=== PATIENT | female | born 1975 | race Caucasian/White ===

== ENCOUNTER → 2021-03-02 08:40 | Outpatient (CLI) | payer BC, SELFPAY ==
[2021-03-02 11:26] LABS: ALB/GLOB Ratio 0.7 RATIO (0.9-2.4); AST(SGOT) 35 U/L (15-37); Alanine Aminotransfer ALT/SGPT 27 U/L (13-56); Albumin, Serum 3.5 g/dL (3.2-5.0); Alkaline Phosphatase 81 U/L (45-117); Anion Gap 6 (5-15); BUN 9 mg/dL (7-18); BUN/Creat Ratio 13.3 RATIO (10-20); Calcium,Total 8.9 mg/dL (8.5-10.1); Chloride 104 mmol/L (98-107); Creatinine, Serum 0.68 mg/dL (0.55-1.02); EST Glomerular Filtration Rate 100 mL/min (>60); Est Glom Filt Rate - Afr Amer 121 mL/min (>60); Globulin 4.7 g/dL (2.2-4.2); Glucose 81 mg/dL (74-106); Potassium 3.5 mmol/L (3.5-5.1); Protein, Total 8.2 g/dL (6.4-8.2); Sodium Level 140 mmol/L (136-145); Thyroid Stim Hormone (TSH) 0.22 uIU/mL (0.358-3.74)
== END ==
PROVIDERS: PCP Family Medicine; Referring Provider Family Medicine; Visit Provider Family Medicine
DX: E03.9 Hypothyroidism, unspecified (principal)
CPT/HCPCS: 36415; 80053; 84443

== ENCOUNTER → 2021-03-04 10:15 | Outpatient (CLI) | payer BC, SELFPAY ==
[2021-03-04 12:00] LABS: Absolute Lymphocyte Count 2.16 X10^3/uL (0.83-4.51); Absolute Neutrophil Count 2.8 X10^3/uL (2.0-7.7); Basophil# 0.02 X10^3/uL; Basophil% 0.4 % (0-1); Eosinophil# 0.06 X10^3/uL; Eosinophils% 1.1 % (0-5); Hematocrit 43.6 % (37-47); Hemoglobin 13.9 g/dL (12.0-15.0); Lymphocyte # 2.16 X10^3/ul (0.83-4.51); Lymphocyte % 38.7 % (19-41); Mean Corp Hgb Conc 31.9 g/dL (32-36); Mean Corpuscular Hgb 29.3 pg (27.0-32.0); Mean Platelet Vol. 11.5 fl (6.2-12.0); Monocyte# 0.53 X10^3/uL; Monocyte% 9.5 % (0-10); NRBC Flagged by Analyzer 0 % (0-5); Neutrophil % 50.1 % (47-70); Platelet Count 304 K/mm3 (150-450); RBC Distribution Width CV 12.7 % (11.6-14.6); RBC Distribution Width SD 43.2 fl (35.1-43.9); Red Blood Count 4.74 M/mm3 (4.2-5.4); White Blood Count 5.6 K/mm3 (4.4-11.0)
[2021-03-04 12:13] LABS: Vitamin B12 734 pg/mL (211-911); Vitamin D,25 Hydroxy 14.7 ng/mL
[2021-03-04 12:15] LABS: Ferritin 30 ng/mL (8-252); Magnesium 2.1 mg/dL (1.6-2.6)
== END ==
PROVIDERS: PCP Family Medicine; Referring Provider Family Medicine; Visit Provider Family Medicine
DX: R53.83 Other fatigue (principal); R25.2 Cramp and spasm
CPT/HCPCS: 36415; 82306; 82607; 82728; 83735; 85025

== ENCOUNTER → 2021-06-29 10:18 | Outpatient (CLI) | payer BC, SELFPAY ==
[2021-06-29 12:30] LABS: Absolute Lymphocyte Count 2.18 X10^3/uL (0.83-4.51); Absolute Neutrophil Count 2.2 X10^3/uL (2.0-7.7); Basophil# 0.03 X10^3/uL; Basophil% 0.6 % (0-1); Eosinophil# 0.08 X10^3/uL; Eosinophils% 1.6 % (0-5); Hematocrit 40.5 % (37-47); Hemoglobin 13.5 g/dL (12.0-15.0); Lymphocyte # 2.18 X10^3/ul (0.83-4.51); Lymphocyte % 44.4 % (19-41); Mean Corp Hgb Conc 33.3 g/dL (32-36); Mean Corpuscular Hgb 30.8 pg (27.0-32.0); Mean Corpuscular Volume 92.3 fL (81-99); Mean Platelet Vol. 11.1 fl (6.2-12.0); Monocyte# 0.39 X10^3/uL; Monocyte% 7.9 % (0-10); NRBC Flagged by Analyzer 0 % (0-5); Neutrophil # 2.22 X10^3/uL (2.7-7.7); Neutrophil % 45.3 % (47-70); Platelet Count 273 K/mm3 (150-450); RBC Distribution Width SD 43.9 fl (35.1-43.9); Red Blood Count 4.39 M/mm3 (4.2-5.4); White Blood Count 4.9 K/mm3 (4.4-11.0)
[2021-06-29 12:54] LABS: Vitamin D,25 Hydroxy 23.3 ng/mL
[2021-06-29 13:44] LABS: ALB/GLOB Ratio 0.7 RATIO (0.9-2.4); AST(SGOT) 19 U/L (15-37); Alanine Aminotransfer ALT/SGPT 19 U/L (13-56); Albumin, Serum 3.2 g/dL (3.2-5.0); Alkaline Phosphatase 69 U/L (45-117); Anion Gap 7 (5-15); BUN 9 mg/dL (7-18); BUN/Creat Ratio 11.4 RATIO (10-20); Calcium,Total 8.9 mg/dL (8.5-10.1); Chloride 106 mmol/L (98-107); Creatinine, Serum 0.79 mg/dL (0.55-1.02); EST Glomerular Filtration Rate 84 mL/min (>60); Est Glom Filt Rate - Afr Amer 102 mL/min (>60); Globulin 4.4 g/dL (2.2-4.2); Glucose 90 mg/dL (74-106); Potassium 3.9 mmol/L (3.5-5.1); Protein, Total 7.6 g/dL (6.4-8.2); Sodium Level 141 mmol/L (136-145); T4 Free Direct 0.79 ng/dL (0.76-1.46); Thyroid Stim Hormone (TSH) 3.94 uIU/mL (0.358-3.74)
== END ==
PROVIDERS: PCP Family Medicine; Referring Provider Family Medicine; Visit Provider Family Medicine
DX: E03.9 Hypothyroidism, unspecified (principal); E55.9 Vitamin D deficiency, unspecified
CPT/HCPCS: 36415; 80053; 82306; 84439; 84443; 85025

== ENCOUNTER → 2021-06-30 11:18 | Outpatient (CLI) | payer BC, SELFPAY ==
--- NOTE | 2021-06-30 11:21 | US_ITS ---
STUDY: THYROID ULTRASOUND REASON FOR EXAM: Female, 46 years old. THY NODULE palpated by physician TECHNIQUE: Ultrasound evaluation of the thyroid was performed with real-time and static calhoun-scale imaging. COMPARISON: None. FINDINGS: RIGHT LOBE: The right lobe of the thyroid gland measures 2.2 x 0.8 x 0.8 cm. There is a homogeneous echotexture. 1 x 0.6 x 0.6 cm lower pole solid nodule with regular margins and punctate echogenic foci. 4 x 3 x 4 mm upper pole solid nodule with regular margins. LEFT LOBE: The left lobe of the thyroid gland measures 2.2 x 0.8 x 0.6 cm. There is a homogeneous echotexture. There are no demonstrated solid, cystic or complex lesions. 4 mm intrathyroid lymph node ISTHMUS: The isthmus measures 3 mm. US/Thyroid IMPRESSION: TI-RADS 4 nodule in the right thyroid lobe measures up to 1 cm. Follow up with ultrasound in one year to assess malignant potential. Electronically Signed: Eh Denise MD at 2:44 EDT Tel , Service support ,
== END ==
PROVIDERS: PCP Family Medicine; Referring Provider Family Medicine; Visit Provider Family Medicine
DX: E04.1 Nontoxic single thyroid nodule (principal)
CPT/HCPCS: 76536

== ENCOUNTER 2021-10-12 16:34 | Outpatient (CLI) | payer BC, SELFPAY ==
[2021-10-12 17:57] LABS: Absolute Lymphocyte Count 2.54 X10^3/uL (0.83-4.51); Basophil# 0.02 X10^3/uL; Basophil% 0.3 % (0-1); Eosinophil# 0.05 X10^3/uL; Eosinophils% 0.7 % (0-5); Hematocrit 39.6 % (37-47); Hemoglobin 13.4 g/dL (12.0-15.0); Lymphocyte # 2.54 X10^3/ul (0.83-4.51); Lymphocyte % 35.6 % (19-41); Mean Corp Hgb Conc 33.8 g/dL (32-36); Mean Corpuscular Hgb 30.9 pg (27.0-32.0); Mean Corpuscular Volume 91.2 fL (81-99); Mean Platelet Vol. 10.9 fl (6.2-12.0); Monocyte# 0.48 X10^3/uL; Monocyte% 6.7 % (0-10); NRBC Flagged by Analyzer 0 % (0-5); Neutrophil # 4.02 X10^3/uL (2.7-7.7); Neutrophil % 56.4 % (47-70); Platelet Count 267 K/mm3 (150-450); RBC Distribution Width CV 12.1 % (11.6-14.6); RBC Distribution Width SD 40.6 fl (35.1-43.9); Red Blood Count 4.34 M/mm3 (4.2-5.4); White Blood Count 7.1 K/mm3 (4.4-11.0)
[2021-10-12 18:17] LABS: Vitamin D,25 Hydroxy 56.2 ng/mL
[2021-10-12 18:32] LABS: ALB/GLOB Ratio 0.8 RATIO (0.9-2.4); AST(SGOT) 20 U/L (15-37); Alanine Aminotransfer ALT/SGPT 19 U/L (13-56); Albumin, Serum 3.4 g/dL (3.2-5.0); Alkaline Phosphatase 70 U/L (45-117); Anion Gap 6 (5-15); BUN 11 mg/dL (7-18); BUN/Creat Ratio 17.8 RATIO (10-20); Calcium,Total 8.6 mg/dL (8.5-10.1); Chloride 106 mmol/L (98-107); Creatinine, Serum 0.62 mg/dL (0.55-1.02); EST Glomerular Filtration Rate 111 mL/min (>60); Est Glom Filt Rate - Afr Amer 135 mL/min (>60); Glucose 87 mg/dL (74-106); Potassium 3.8 mmol/L (3.5-5.1); Protein, Total 7.4 g/dL (6.4-8.2); Sodium Level 138 mmol/L (136-145); T4 Free Direct 0.96 ng/dL (0.76-1.46); Thyroid Stim Hormone (TSH) 0.26 uIU/mL (0.358-3.74)
== END 2021-10-12 23:59 | disposition short-term general hospital (02) ==
LOC: MTLAB 16:36
PROVIDERS: PCP Family Medicine; Referring Provider Family Medicine; Visit Provider Family Medicine
DX: E03.9 Hypothyroidism, unspecified (principal); E55.9 Vitamin D deficiency, unspecified
CPT/HCPCS: 36415; 80053; 82306; 84439; 84443; 85025

== ENCOUNTER 2021-11-01 11:41 | Outpatient (CLI) | payer BC, SELFPAY ==
--- NOTE | 2021-11-01 11:47 | BI_ITS ---
MAMMOGRAPHY - BILATERAL SCREENING REASON FOR EXAM: Female, 46 years old. Routine annual screening examination. PERTINENT HISTORY: Non-contributory. TECHNIQUE: Digital bilateral breast caryn (3D mammographic acquisition) in the CC and MLO projections. 2-D mediolateral oblique (MLO) and craniocaudad (CC) views of both breasts were obtained. CAD: Full Field Digital Mammography with Computer Added Detection was performed. COMPARISON: Comparison is made with prior outside examination dated 05/23/2008. FINDINGS: Breast Composition: The breasts are heterogeneously dense, which may obscure small masses. There are no dominant masses or suspicious calcifications. No other significant abnormalities are identified. There has been no significant change since the prior study. BI/SCRN MAMM (CAD)W/CARYN BILAT IMPRESSION: Stable bilateral screening mammogram. Yearly follow-up mammogram recommended. (A) ASSESSMENT CATEGORY: BIRADS Category 1: Negative. A letter regarding these results will be sent to the patient by the facility within 30 days. Approximately 10% of breast cancers are not detected by mammography. A normal mammogram should not delay biopsy of a clinically suspicious abnormality. [id number] Electronically Signed: Cj Bey MD at 12:56 EST ,
--- NOTE | 2021-11-01 11:47 | US_ITS ---
STUDY: ULTRASOUND OF THE FEMALE PELVIS - COMPLETE REASON FOR EXAM: Female, 46 years old. PAIN left sided LMP: 10/25/2021. TECHNIQUE: Transabdominal and Transvaginal TECHNICAL QUALITY: Adequate. COMPARISON: None. FINDINGS: The uterus is anteverted and is in a midline position. The uterus measures 7 cm x 3.6 cm x 3.3 cm. Normal uterine cervix. The endometrium measures 2.7 mm in thickness, and is hyperechoic. There is no demonstrated endometrial mass. Heterogeneous echotexture of the myometrium although no focal fibroid is seen. I.U.D. - The patient does not have an I.U.D. The right ovary is visualized. The right ovary measures 2.1 cm x 2.2 centimeters x 1.2 cm. There is no right ovarian cyst or ovarian mass. There is no visualized right adnexal mass or complex lesion. There is normal arterial and normal venous vascularity. The left ovary is visualized. The left ovary measures 2.4 cm x 2.6 cm x 1.2 cm. A dominant follicle is seen in the left ovary measuring 1.2 cm x 1 cm x 0.9 cm. There is no visualized left adnexal mass or complex lesion. There is normal arterial and normal venous vascularity. There is no fluid in the cul-de-sac. The pre void volume of the bladder was 277 ml. US/Transvaginal Non- IMPRESSION: Heterogeneous appearance of the myometrium although no focal fibroid is seen. A dominant follicle is seen in the left ovary. Electronically Signed: Cj Bey MD at 15:34 EST ,
--- NOTE | 2021-11-01 11:48 | US_ITS ---
STUDY: ULTRASOUND OF THE FEMALE PELVIS - COMPLETE REASON FOR EXAM: Female, 46 years old. PAIN left sided LMP: 10/25/2021. TECHNIQUE: Transabdominal and Transvaginal TECHNICAL QUALITY: Adequate. COMPARISON: None. FINDINGS: The uterus is anteverted and is in a midline position. The uterus measures 7 cm x 3.6 cm x 3.3 cm. Normal uterine cervix. The endometrium measures 2.7 mm in thickness, and is hyperechoic. There is no demonstrated endometrial mass. Heterogeneous echotexture of the myometrium although no focal fibroid is seen. I.U.D. - The patient does not have an I.U.D. The right ovary is visualized. The right ovary measures 2.1 cm x 2.2 centimeters x 1.2 cm. There is no right ovarian cyst or ovarian mass. There is no visualized right adnexal mass or complex lesion. There is normal arterial and normal venous vascularity. The left ovary is visualized. The left ovary measures 2.4 cm x 2.6 cm x 1.2 cm. A dominant follicle is seen in the left ovary measuring 1.2 cm x 1 cm x 0.9 cm. There is no visualized left adnexal mass or complex lesion. There is normal arterial and normal venous vascularity. There is no fluid in the cul-de-sac. The pre void volume of the bladder was 277 ml. US/Pelvic (Non ) IMPRESSION: Heterogeneous appearance of the myometrium although no focal fibroid is seen. A dominant follicle is seen in the left ovary. Electronically Signed: Cj Bey MD at 15:34 EST ,
== END 2021-11-01 23:59 | disposition home or self-care (01) ==
LOC: OPBI 11:44
PROVIDERS: PCP Family Medicine; Referring Provider Obstetrics & Gynecology; Visit Provider Obstetrics & Gynecology
DX: Z12.31 Encounter for screening mammogram for malignant neoplasm of breast (principal); N83.02 Follicular cyst of left ovary; R14.0 Abdominal distension (gaseous); R10.32 Left lower quadrant pain
CPT/HCPCS: 76830; 76856; 77063; 77067

== ENCOUNTER → 2022-03-17 | Outpatient (CLI) | payer BC, SELFPAY ==
[2022-03-17 09:59] LABS: Absolute Lymphocyte Count 1.92 X10^3/uL (0.83-4.51); Absolute Neutrophil Count 2.9 X10^3/uL (2.0-7.7); Basophil# 0.02 X10^3/uL; Basophil% 0.4 % (0-1); Eosinophil# 0.06 X10^3/uL; Eosinophils% 1.1 % (0-5); Hematocrit 40.8 % (37-47); Hemoglobin 13.3 g/dL (12.0-15.0); Lymphocyte # 1.92 X10^3/ul (0.83-4.51); Lymphocyte % 35.8 % (19-41); Mean Corp Hgb Conc 32.6 g/dL (32-36); Mean Corpuscular Hgb 30.1 pg (27.0-32.0); Mean Corpuscular Volume 92.3 fL (81-99); Mean Platelet Vol. 10.7 fl (6.2-12.0); Monocyte# 0.42 X10^3/uL; Monocyte% 7.8 % (0-10); NRBC Flagged by Analyzer 0 % (0-5); Neutrophil # 2.93 X10^3/uL (2.7-7.7); Neutrophil % 54.5 % (47-70); Platelet Count 278 K/mm3 (150-450); RBC Distribution Width CV 12.4 % (11.6-14.6); RBC Distribution Width SD 41.8 fl (35.1-43.9); Red Blood Count 4.42 M/mm3 (4.2-5.4); White Blood Count 5.4 K/mm3 (4.4-11.0)
[2022-03-17 10:52] LABS: ALB/GLOB Ratio 0.8 RATIO (0.9-2.4); AST(SGOT) 27 U/L (15-37); Alanine Aminotransfer ALT/SGPT 21 U/L (13-56); Albumin, Serum 3.4 g/dL (3.2-5.0); Alkaline Phosphatase 77 U/L (45-117); Anion Gap 4 (5-15); BUN 11 mg/dL (7-18); Calcium,Total 9.3 mg/dL (8.5-10.1); Chloride 108 mmol/L (98-107); Creatinine, Serum 0.73 mg/dL (0.55-1.02); EST Glomerular Filtration Rate 92 mL/min (>60); Est Glom Filt Rate - Afr Amer 111 mL/min (>60); Globulin 4.1 g/dL (2.2-4.2); Glucose 84 mg/dL (74-106); Potassium 3.9 mmol/L (3.5-5.1); Protein, Total 7.5 g/dL (6.4-8.2); Sodium Level 140 mmol/L (136-145); T4 Free Direct 0.92 ng/dL (0.76-1.46); Thyroid Stim Hormone (TSH) 0.06 uIU/mL (0.358-3.74)
== END | disposition home or self-care (01) ==
LOC: MTLAB 09:12
PROVIDERS: PCP Family Medicine; Referring Provider Family Medicine; Visit Provider Family Medicine
DX: E03.9 Hypothyroidism, unspecified (principal); E55.9 Vitamin D deficiency, unspecified
CPT/HCPCS: 36415; 80053; 82306; 84439; 84443; 85025

== ENCOUNTER → 2022-07-11 | Outpatient (CLI) | payer BC, SELFPAY ==
[2022-07-11 10:12] LABS: Absolute Lymphocyte Count 1.73 X10^3/uL (0.83-4.51); Absolute Neutrophil Count 2.8 X10^3/uL (2.0-7.7); Basophil# 0.03 X10^3/uL; Basophil% 0.6 % (0-1); Eosinophil# 0.07 X10^3/uL; Eosinophils% 1.4 % (0-5); Hematocrit 41.4 % (37-47); Lymphocyte # 1.73 X10^3/ul (0.83-4.51); Mean Corp Hgb Conc 33.8 g/dL (32-36); Mean Corpuscular Hgb 31.2 pg (27.0-32.0); Mean Corpuscular Volume 92.2 fL (81-99); Mean Platelet Vol. 10.8 fl (6.2-12.0); Monocyte# 0.35 X10^3/uL; Monocyte% 7.1 % (0-10); NRBC Flagged by Analyzer 0 % (0-5); Neutrophil # 2.75 X10^3/uL (2.7-7.7); Neutrophil % 55.7 % (47-70); Platelet Count 283 K/mm3 (150-450); RBC Distribution Width CV 12.6 % (11.6-14.6); RBC Distribution Width SD 42.8 fl (35.1-43.9); Red Blood Count 4.49 M/mm3 (4.2-5.4); White Blood Count 4.9 K/mm3 (4.4-11.0)
[2022-07-11 10:39] LABS: Vitamin D,25 Hydroxy 64.6 ng/mL
[2022-07-11 10:45] LABS: ALB/GLOB Ratio 0.8 RATIO (0.9-2.4); AST(SGOT) 21 U/L (15-37); Alanine Aminotransfer ALT/SGPT 20 U/L (13-56); Albumin, Serum 3.4 g/dL (3.2-5.0); Alkaline Phosphatase 85 U/L (45-117); Anion Gap 6 (5-15); BUN 8 mg/dL (7-18); BUN/Creat Ratio 13.5 RATIO (10-20); Chloride 106 mmol/L (98-107); Creatinine, Serum 0.59 mg/dL (0.55-1.02); EST Glomerular Filtration Rate 116 mL/min (>60); Est Glom Filt Rate - Afr Amer 141 mL/min (>60); Globulin 4.1 g/dL (2.2-4.2); Glucose 93 mg/dL (74-106); Potassium 3.6 mmol/L (3.5-5.1); Protein, Total 7.5 g/dL (6.4-8.2); Sodium Level 140 mmol/L (136-145); T4 Free Direct 0.98 ng/dL (0.76-1.46); Thyroid Stim Hormone (TSH) 0.87 uIU/mL (0.358-3.74)
== END | disposition home or self-care (01) ==
LOC: MTLAB 09:14
PROVIDERS: PCP Family Medicine; Referring Provider Family Medicine; Visit Provider Family Medicine
DX: D69.3 Immune thrombocytopenic purpura (principal); E55.9 Vitamin D deficiency, unspecified; E03.9 Hypothyroidism, unspecified
CPT/HCPCS: 36415; 80053; 82306; 84439; 84443; 85025

== ENCOUNTER → 2022-07-29 | Outpatient (CLI) | payer BC, SELFPAY ==
--- NOTE | 2022-07-29 17:29 | US_ITS ---
1.0 x 0.62 x 0.77 cm. This is similar to the prior study. STUDY: THYROID ULTRASOUND REASON FOR EXAM: Female, 47 years old. THYROID NODULES TECHNIQUE: Ultrasound evaluation of the thyroid was performed with real-time and static calhoun-scale imaging. Technologist described the thyroid is homogeneous however the thyroid is inhomogeneous on the right side. It is mildly inhomogeneous on the left. COMPARISON: 06/30/2021 Thyroid ultrasound. FINDINGS: RIGHT LOBE: The right lobe of the thyroid gland measures 1.9 x 0.9 x 0.8 cm. There is a somewhat coarse echotexture to the right thyroid. There is a calcification in the medial aspect of the thyroid measuring 6 mm. In the inferior aspect of the right thyroid there is a visualized hypoechoic mass measuring 1.0 x 0.8 x 0.6 cm. There are coarse calcifications associated with this nodule and minimal peripheral vascularity. LEFT LOBE: The left lobe of the thyroid gland measures 1.8 x 0.6 x 0.7 cm. There is a heterogeneous echotexture. There is a small hypoechoic structure in the periphery of the left thyroid with a hypoechoic periphery and hyperechoic center which may represent a small lymph node measuring 3.7 x 3.0 x 2.9 mm. ISTHMUS: The isthmus measures 1.8 mm. . The regional lymph nodes are normal. US/Thyroid IMPRESSION: Small appearance of the small bilateral thyroid lobes. There is a dominant inhomogeneous mass measuring 1 x 0.8 x 0.6 with coarse calcifications within the right thyroid. Although this is unchanged since prior study in size, a dominant presentation of hypoechoic mass with coarse calcifications peripheral vascularity in a patient this age raises concern for neoplasm. Recommend further evaluation with biopsy. Electronically Signed: Anahy Cramer MD at 16:44 EST ,
== END | disposition home or self-care (01) ==
LOC: US 17:26
PROVIDERS: PCP Family Medicine; Referring Provider Family Medicine; Visit Provider Family Medicine
DX: E04.1 Nontoxic single thyroid nodule (principal)
CPT/HCPCS: 76536

== ENCOUNTER → 2022-11-17 | Outpatient (CLI) | payer BC, SELFPAY ==
--- NOTE | 2022-11-17 17:10 | MRI_ITS ---
STUDY: MRI BRAIN WITH AND WITHOUT CONTRAST REASON FOR EXAM: Female, 47 years old. DYSDIADOCHOKINESIA TECHNIQUE: Standardized multiplanar fat and water weighted pulse sequences were obtained. IV 17 clairiscan was administered for the contrast portion of the examination. COMPARISON: None. FINDINGS: Normal size of the ventricles and extra-axial spaces for the patient''s age. Normal white matter tracts of the supratentorial brain. There is no evidence for recent intracranial ischemia or other cause of cytotoxic edema on diffusion weighted imaging (DWI). Normal T2* images of the brain without demonstrated susceptibility artifact. There is no demonstrated hemosiderin stain. Normal bilateral basal ganglia. Normal thalami. There is no extra-axial fluid accumulation. Normal flow voids within the major intracranial circulation suggesting patency by spin echo criteria. Normal venous enhancement. There is no enhancing intra-axial or extra-axial abnormality. Normal pineal gland and midline anatomy. Normal midbrain, jasmeet and medulla. Normal cerebellum. Normal basal cisterns. Cerebellar pontine angles and inner ear structures are within normal limits. Normally aerated paranasal sinuses and mastoid air cells. MRI/Brain W/WO Contrast IMPRESSION: Normal unenhanced and enhanced MRI of the brain. Electronically Signed: Jason Barrios DO at 20:05 EST ,
== END | disposition home or self-care (01) ==
LOC: MRI 16:49
PROVIDERS: PCP Family Medicine; Referring Provider Family Medicine; Visit Provider Family Medicine
DX: R27.8 Other lack of coordination (principal)
CPT/HCPCS: 70553; A9575

== ENCOUNTER → 2022-12-01 | Outpatient (CLI) | payer BC, SELFPAY ==
[2022-12-01 15:11] LABS: Absolute Lymphocyte Count 2.25 X10^3/uL (0.83-4.51); Absolute Neutrophil Count 2.5 X10^3/uL (2.0-7.7); Basophil# 0.02 X10^3/uL; Basophil% 0.4 % (0-1); Eosinophil# 0.04 X10^3/uL; Eosinophils% 0.8 % (0-5); Hematocrit 40.6 % (37-47); Hemoglobin 13.7 g/dL (12.0-15.0); Lymphocyte # 2.25 X10^3/ul (0.83-4.51); Lymphocyte % 42.4 % (19-41); Mean Corp Hgb Conc 33.7 g/dL (32-36); Mean Corpuscular Hgb 30.9 pg (27.0-32.0); Mean Corpuscular Volume 91.6 fL (81-99); Mean Platelet Vol. 10.8 fl (6.2-12.0); Monocyte# 0.53 X10^3/uL; NRBC Flagged by Analyzer 0 % (0-5); Neutrophil # 2.47 X10^3/uL (2.7-7.7); Neutrophil % 46.4 % (47-70); Platelet Count 316 K/mm3 (150-450); RBC Distribution Width CV 12.3 % (11.6-14.6); RBC Distribution Width SD 41.7 fl (35.1-43.9); Red Blood Count 4.43 M/mm3 (4.2-5.4); White Blood Count 5.3 K/mm3 (4.4-11.0)
[2022-12-01 15:59] LABS: Vitamin D,25 Hydroxy 70.8 ng/mL
[2022-12-01 16:17] LABS: ALB/GLOB Ratio 0.9 RATIO (0.9-2.4); AST(SGOT) 16 U/L (15-37); Alanine Aminotransfer ALT/SGPT 19 U/L (13-56); Albumin, Serum 3.5 g/dL (3.2-5.0); Alkaline Phosphatase 69 U/L (45-117); Anion Gap 9 (5-15); BUN 11 mg/dL (7-18); BUN/Creat Ratio 16.4 RATIO (10-20); Calcium,Total 9.1 mg/dL (8.5-10.1); Chloride 105 mmol/L (98-107); Creatinine, Serum 0.67 mg/dL (0.55-1.02); EST Glomerular Filtration Rate 101 mL/min (>60); Est Glom Filt Rate - Afr Amer 122 mL/min (>60); Globulin 4.1 g/dL (2.2-4.2); Glucose 103 mg/dL (74-106); Potassium 3.7 mmol/L (3.5-5.1); Protein, Total 7.6 g/dL (6.4-8.2); Sodium Level 139 mmol/L (136-145); T4 Free Direct 1.07 ng/dL (0.76-1.46); Thyroid Stim Hormone (TSH) 0.08 uIU/mL (0.358-3.74)
== END | disposition home or self-care (01) ==
LOC: MFPLAB 11:20
PROVIDERS: PCP Family Medicine; Referring Provider Family Medicine; Visit Provider Family Medicine
DX: E03.9 Hypothyroidism, unspecified (principal); E55.9 Vitamin D deficiency, unspecified
CPT/HCPCS: 36415; 80053; 82306; 84439; 84443; 85025

== ENCOUNTER → 2023-02-10 | Outpatient (CLI) | payer BC, SELFPAY ==
--- NOTE | 2023-02-10 17:12 | US_ITS ---
EXAM: US SOFT TISSUES HEAD AND NECK, THYROID CLINICAL INDICATION: Thyroid nodules TECHNIQUE: Grayscale and color doppler imaging was performed of the thyroid gland. COMPARISON: No relevant prior studies available. FINDINGS: LEFT THYROID LOBE: The left lobe of the thyroid measures 1.6 x 0.7 x 0.6 cm. Heterogeneous solid nodule measuring 3 mm lower pole left lobe of the thyroid that is heterogeneous hyperechoic, smoothly marginated, with echogenic foci. RIGHT THYROID LOBE: The right lobe of the thyroid measures 2.1 x 0.9 x 0.8 cm. Heterogeneous solid nodule measuring 7 x 6 x 6 mm lower pole of the right lobe of the thyroid that is hypoechoic, taller than wide, smoothly marginated without echogenic foci. ISTHMUS: The isthmus measures 2 mm. No thyroid nodules are present. US/Thyroid IMPRESSION: 1. Atrophic thyroid. 2. Heterogeneous solid nodule measuring 7 x 6 x 6 mm lower pole of the right lobe of the thyroid that is hypoechoic, taller than wide, smoothly marginated without echogenic foci. TI-RADS points: 7. TI-RADS category: TR5. This nodule is highly suspicious but no FNA or follow-up is necessary given the small size of this nodule. 3. Heterogeneous solid nodule measuring 3 mm lower pole left lobe of the thyroid that is heterogeneous hyperechoic, smoothly marginated, with echogenic foci. TI-RADS points: 6. TI-RADS category: TR4. This nodule is moderately suspicious but no FNA or follow-up is necessary given the small size of this nodule. Electronically Signed: Jason Talbert MD at 4:48 EDT ,
== END | disposition home or self-care (01) ==
LOC: US 17:10
PROVIDERS: PCP Family Medicine; Referring Provider Surgery; Visit Provider Surgery
DX: E04.1 Nontoxic single thyroid nodule (principal); E03.9 Hypothyroidism, unspecified
CPT/HCPCS: 76536

== ENCOUNTER → 2023-05-10 | Outpatient (CLI) | payer BC, SELFPAY ==
--- NOTE | 2023-05-10 12:27 | BI_ITS ---
MAMMOGRAPHY - BILATERAL SCREENING REASON FOR EXAM: Female, 47 years old. Routine annual screening examination. PERTINENT HISTORY: Non-contributory. TECHNIQUE: Digital bilateral breast caryn (3D mammographic acquisition) in the CC and MLO projections. 2-D mediolateral oblique (MLO) and craniocaudad (CC) views of both breasts were obtained. CAD: Full Field Digital Mammography with Computer Added Detection was performed. COMPARISON: Comparison is made with prior examination of November 01, 2021. FINDINGS: Breast Composition: The breasts are heterogeneously dense, which may obscure small masses. There are no dominant masses or suspicious calcifications. Stable small benign-appearing bilateral axillary lymph nodes. No other significant abnormalities are identified. There has been no significant change since the prior study. BI/SCRN MAMM (CAD)W/CARYN BILAT IMPRESSION: Stable bilateral screening mammogram. Yearly follow-up mammogram recommended. (A) ASSESSMENT CATEGORY: BIRADS Category 2: Benign. A letter regarding these results will be sent to the patient by the facility within 30 days. Approximately 10% of breast cancers are not detected by mammography. A normal mammogram should not delay biopsy of a clinically suspicious abnormality. [id number] Electronically Signed: Cj Bey MD at 14:32 EDT ,
== END | disposition home or self-care (01) ==
LOC: OPBI 12:25
PROVIDERS: PCP Family Medicine; Referring Provider Obstetrics & Gynecology; Visit Provider Obstetrics & Gynecology
DX: Z12.31 Encounter for screening mammogram for malignant neoplasm of breast (principal)
CPT/HCPCS: 77063; 77067

== ENCOUNTER → 2023-06-06 | Outpatient (CLI) | payer BC, SELFPAY ==
[2023-06-06 15:18] LABS: Absolute Lymphocyte Count 2.02 X10^3/uL (0.83-4.51); Absolute Neutrophil Count 2.1 X10^3/uL (2.0-7.7); Basophil# 0.04 X10^3/uL; Basophil% 0.9 % (0-1); Eosinophil# 0.04 X10^3/uL; Eosinophils% 0.9 % (0-5); Hematocrit 41.4 % (37-47); Hemoglobin 13.4 g/dL (12.0-15.0); Lymphocyte # 2.02 X10^3/ul (0.83-4.51); Lymphocyte % 43.2 % (19-41); Mean Corp Hgb Conc 32.4 g/dL (32-36); Mean Corpuscular Hgb 30.4 pg (27.0-32.0); Mean Corpuscular Volume 93.9 fL (81-99); Mean Platelet Vol. 11.3 fl (6.2-12.0); Monocyte# 0.42 X10^3/uL; NRBC Flagged by Analyzer 0 % (0-5); Neutrophil % 44.7 % (47-70); Platelet Count 281 K/mm3 (150-450); RBC Distribution Width CV 12.2 % (11.6-14.6); RBC Distribution Width SD 42.6 fl (35.1-43.9); Red Blood Count 4.41 M/mm3 (4.2-5.4); White Blood Count 4.7 K/mm3 (4.4-11.0)
[2023-06-06 16:02] LABS: Vitamin D,25 Hydroxy 33.6 ng/mL
[2023-06-06 16:56] LABS: ALB/GLOB Ratio 0.8 RATIO (0.9-2.4); AST(SGOT) 19 U/L (15-37); Alanine Aminotransfer ALT/SGPT 21 U/L (13-56); Albumin, Serum 3.3 g/dL (3.2-5.0); Alkaline Phosphatase 77 U/L (45-117); Anion Gap 6 (5-15); BUN 13 mg/dL (7-18); Calcium,Total 8.8 mg/dL (8.5-10.1); Chloride 109 mmol/L (98-107); Creatinine, Serum 0.72 mg/dL (0.55-1.02); EST Glomerular Filtration Rate 93 mL/min (>60); Est Glom Filt Rate - Afr Amer 112 mL/min (>60); Globulin 4.1 g/dL (2.2-4.2); Glucose 118 mg/dL (74-106); Potassium 3.8 mmol/L (3.5-5.1); Protein, Total 7.4 g/dL (6.4-8.2); Sodium Level 140 mmol/L (136-145); T4 Free Direct 0.91 ng/dL (0.76-1.46); Thyroid Stim Hormone (TSH) 0.31 uIU/mL (0.358-3.74)
== END | disposition home or self-care (01) ==
LOC: MFPLAB 11:27
PROVIDERS: PCP Family Medicine; Visit Provider Family Medicine
DX: E03.9 Hypothyroidism, unspecified (principal); E55.9 Vitamin D deficiency, unspecified; R73.09 Other abnormal glucose
CPT/HCPCS: 36415; 80053; 82306; 83036; 84439; 84443; 85025

== ENCOUNTER → 2023-06-16 | Outpatient (CLI) | payer BC, SELFPAY | END | disposition home or self-care (01) | LOC: MTLAB 08:35 | PROVIDERS: PCP Family Medicine; Referring Provider Family Medicine; Visit Provider Family Medicine | DX: R73.09 Other abnormal glucose (principal) | CPT/HCPCS: 36415; 83036 ==

== ENCOUNTER → 2023-08-15 | Outpatient (CLI) | payer BC, SELFPAY ==
--- NOTE | 2023-08-15 11:43 | US_ITS ---
STUDY: THYROID ULTRASOUND REASON FOR EXAM: Female, 48 years old. Thyroid nodules TECHNIQUE: Ultrasound evaluation of the thyroid was performed with real-time and static calhoun-scale imaging. COMPARISON: Comparison is made with prior study dated February 10, 2023. FINDINGS: RIGHT LOBE: The right lobe of the thyroid gland measures 2.6 cm x 0.9 cm x 1.1 cm. There is a heterogeneous echotexture. 1.1 cm x 0.7 cm x 0.7 cm solid nodule in the lower pole. This is unchanged. LEFT LOBE: The left lobe of the thyroid gland measures 2.1 cm x 0.9 cm x 0.8 cm. There is a heterogeneous echotexture. Stable 4 mm x 3 mm x 2 mm hypoechoic solid nodule in the lower pole. ISTHMUS: The isthmus measures 2 mm. The regional lymph nodes are normal. US/Thyroid IMPRESSION: Stable examination. Electronically Signed: Cj Bey MD at 13:56 EST ,
== END | disposition home or self-care (01) ==
PROVIDERS: PCP Family Medicine; Referring Provider Surgery; Visit Provider Surgery
DX: E04.1 Nontoxic single thyroid nodule (principal)
CPT/HCPCS: 76536

== ENCOUNTER → 2023-11-30 | Outpatient (CLI) | payer BC, SELFPAY ==
[2023-11-30 09:30] LABS: Mucous, Urine 0 SEEN /hpf (<or=2+); Red Blood Cells-Urine 0 SEEN /hpf (0-5); White Blood Cells 0 SEEN /hpf (0-5)
[2023-11-30 10:10] LABS: Absolute Lymphocyte Count 2.02 X10^3/uL (0.83-4.51); Absolute Neutrophil Count 2.6 X10^3/uL (2.0-7.7); Basophil# 0.03 X10^3/uL; Basophil% 0.6 % (0-1); Eosinophil# 0.05 X10^3/uL; Eosinophils% 0.9 % (0-5); Hemoglobin 13.8 g/dL (12.0-15.0); Lymphocyte # 2.02 X10^3/ul (0.83-4.51); Lymphocyte % 38.2 % (19-41); Mean Corp Hgb Conc 33.7 g/dL (32-36); Mean Corpuscular Hgb 31.2 pg (27.0-32.0); Mean Corpuscular Volume 92.8 fL (81-99); Mean Platelet Vol. 10.6 fl (6.2-12.0); Monocyte# 0.55 X10^3/uL; Monocyte% 10.4 % (0-10); NRBC Flagged by Analyzer 0 % (0-5); Neutrophil # 2.63 X10^3/uL (2.7-7.7); Neutrophil % 49.7 % (47-70); Platelet Count 255 K/mm3 (150-450); RBC Distribution Width CV 12.2 % (11.6-14.6); RBC Distribution Width SD 41.6 fl (35.1-43.9); Red Blood Count 4.42 M/mm3 (4.2-5.4); White Blood Count 5.3 K/mm3 (4.4-11.0)
[2023-11-30 10:13] LABS: Color, Urine Yellow (Yellow); Glucose, Dipstick Normal (Normal); Ketone-Dipstick Negative (Negative); Leukocyte Esterase-Dipstick Negative /ul (Negative); Nitrite-Dipstick Negative (Negative); Occult Blood-Urine Negative /ul (Negative); Protein-Dipstick Negative (Negative); Urine Bilirubin Dipstick Negative (Negative); Urine Clarity Clear (Clear); Urine Urobilinogen Normal (Normal)
[2023-11-30 10:32] LABS: Vitamin D,25 Hydroxy 34.4 ng/mL
[2023-11-30 10:47] LABS: Bacteria RARE /hpf (None Seen); Squamous Epithelial Cells - UA 0-5 SEEN /hpf (5-10)
[2023-11-30 13:35] LABS: ALB/GLOB Ratio 0.8 RATIO (0.9-2.4); AST(SGOT) 22 U/L (15-37); Alanine Aminotransfer ALT/SGPT 19 U/L (13-56); Albumin, Serum 3.4 g/dL (3.2-5.0); Alkaline Phosphatase 73 U/L (45-117); Anion Gap 6 (5-15); BUN 11 mg/dL (7-18); BUN/Creat Ratio 14.6 RATIO (10-20); Calcium,Total 8.9 mg/dL (8.5-10.1); Chloride 110 mmol/L (98-107); Cholesterol 158 mg/dL (200); Creatinine, Serum 0.76 mg/dL (0.55-1.02); EST Glomerular Filtration Rate 88 mL/min (>60); Est Glom Filt Rate - Afr Amer 106 mL/min (>60); Globulin 4.1 g/dL (2.2-4.2); Glucose 96 mg/dL (74-106); High Density Lipoprotein 31 mg/dL; Potassium 3.6 mmol/L (3.5-5.1); Protein, Total 7.5 g/dL (6.4-8.2); Sodium Level 140 mmol/L (136-145); T4 Free Direct 1.07 ng/dL (0.76-1.46); Thyroid Stim Hormone (TSH) 0.82 uIU/mL (0.358-3.74); Triglycerides 265 mg/dL; Very Low Density Lipoprotein 53 mg/dL (5-40)
== END | disposition home or self-care (01) ==
LOC: MTLAB 09:24
PROVIDERS: PCP Family Medicine; Referring Provider Family Medicine; Visit Provider Family Medicine
DX: E03.9 Hypothyroidism, unspecified (principal); E55.9 Vitamin D deficiency, unspecified
CPT/HCPCS: 36415; 80053; 80061; 81001; 82306; 84439; 84443; 85025

== ENCOUNTER → 2023-12-22 | Outpatient (CLI) | payer BC, SELFPAY ==
[2023-12-22 12:25] LABS: Erythrocyte Sedimentation Rate 14 mm/hr (0-30)
[2023-12-22 13:16] LABS: CPK Total, Creatine Kinase 55 U/L (26-192)
== END | disposition home or self-care (01) ==
LOC: MFPLAB 10:20
PROVIDERS: PCP Family Medicine; Visit Provider Family Medicine
DX: M62.81 Muscle weakness (generalized) (principal)
CPT/HCPCS: 36415; 82550; 83735; 85652

== ENCOUNTER → 2024-01-10 | Outpatient (CLI) | payer BC, SELFPAY ==
--- NOTE | 2024-01-10 13:14 | NEURO ---
NCS and/or EMG Patient Report Ordering Doctor: Braxton Maher DATE OF SERVICE: 01/10/24 Jovita presents for electrodiagnostic testing of the upper limbs. She reports pain in both arms and skin sensitivity, which she reports feels like burning in both arms. Electrodiagnostic findings: Median motor nerve demonstrates normal distal latency, amplitude and conduction velocity bilaterally. Ulnar motor response is within normal limits bilaterally, including conduction across the elbow. Normal median and ulnar F?waves. Sensory responses are within normal limits. Needle EMG testing was performed in the upper limbs. All muscles tested, including the cervical paraspinals, showed no evidence of denervation with normal motor unit action potentials. Electrodiagnostic impression: This is a normal electrodiagnostic study of the upper limbs. There is no electrodiagnostic evidence for peripheral neuropathy including carpal tunnel or cubital tunnel syndrome. There is no electrodiagnostic evidence for cervical radiculopathy. Multi Select Codes Neurology Neurology Interp Codes: 03998-51 Musc test done w/n test comp (interp) (2) and 91387-34 Nrv cndj test 13/> studies (interp)
== END | disposition home or self-care (01) ==
PROVIDERS: PCP Family Medicine; Referring Provider Family Medicine; Visit Provider Family Medicine
DX: G56.03 Carpal tunnel syndrome, bilateral upper limbs (principal)
CPT/HCPCS: 95886; 95913

== ENCOUNTER → 2024-03-22 | Outpatient (CLI) | payer BC, SELFPAY ==
[2024-03-22 12:27] LABS: Absolute Lymphocyte Count 2.09 X10^3/uL (0.83-4.51); Absolute Neutrophil Count 2.1 X10^3/uL (2.0-7.7); Basophil# 0.02 X10^3/uL; Basophil% 0.4 % (0-1); Eosinophil# 0.03 X10^3/uL; Eosinophils% 0.6 % (0-5); Hematocrit 42.2 % (37-47); Hemoglobin 14.3 g/dL (12.0-15.0); Lymphocyte # 2.09 X10^3/ul (0.83-4.51); Lymphocyte % 43.9 % (19-41); Mean Corp Hgb Conc 33.9 g/dL (32-36); Mean Corpuscular Hgb 31.4 pg (27.0-32.0); Mean Corpuscular Volume 92.7 fL (81-99); Mean Platelet Vol. 10.9 fl (6.2-12.0); Monocyte# 0.47 X10^3/uL; Monocyte% 9.9 % (0-10); NRBC Flagged by Analyzer 0 % (0-5); Neutrophil # 2.14 X10^3/uL (2.7-7.7); Platelet Count 275 K/mm3 (150-450); RBC Distribution Width CV 12.1 % (11.6-14.6); RBC Distribution Width SD 41.6 fl (35.1-43.9); Red Blood Count 4.55 M/mm3 (4.2-5.4); White Blood Count 4.8 K/mm3 (4.4-11.0)
[2024-03-22 12:51] LABS: Vitamin D,25 Hydroxy 31.7 ng/mL
[2024-03-22 12:57] LABS: ALB/GLOB Ratio 0.9 RATIO (0.9-2.4); AST(SGOT) 20 U/L (15-37); Alanine Aminotransfer ALT/SGPT 17 U/L (13-56); Albumin, Serum 3.6 g/dL (3.2-5.0); Alkaline Phosphatase 62 U/L (45-117); Anion Gap 5 (5-15); BUN 11 mg/dL (7-18); BUN/Creat Ratio 15.2 RATIO (10-20); Calcium,Total 9.2 mg/dL (8.5-10.1); Chloride 108 mmol/L (98-107); Cholesterol 151 mg/dL (200); Creatinine, Serum 0.72 mg/dL (0.55-1.02); EST Glomerular Filtration Rate 92 mL/min (>60); Est Glom Filt Rate - Afr Amer 111 mL/min (>60); Globulin 3.8 g/dL (2.2-4.2); Glucose 91 mg/dL (74-106); High Density Lipoprotein 35 mg/dL; Potassium 4.1 mmol/L (3.5-5.1); Protein, Total 7.4 g/dL (6.4-8.2); Sodium Level 137 mmol/L (136-145); T4 Free Direct 1.11 ng/dL (0.76-1.46); Thyroid Stim Hormone (TSH) 0.09 uIU/mL (0.358-3.74); Triglycerides 181 mg/dL; Very Low Density Lipoprotein 36 mg/dL (5-40)
== END | disposition home or self-care (01) ==
LOC: MFPLAB 11:12
PROVIDERS: PCP Family Medicine; Visit Provider Family Medicine
DX: E03.9 Hypothyroidism, unspecified (principal); E55.9 Vitamin D deficiency, unspecified
CPT/HCPCS: 36415; 80053; 80061; 82306; 84439; 84443; 85025

== ENCOUNTER → 2024-08-12 | Outpatient (CLI) | payer BC, SELFPAY ==
--- NOTE | 2024-08-12 12:55 | US_ITS ---
STUDY: THYROID ULTRASOUND REASON FOR EXAM: Female, 49 years old. nodule TECHNIQUE: Ultrasound evaluation of the thyroid was performed with real-time and static calhoun-scale imaging. COMPARISON: Thyroid ultrasound dated August 15, 2023 FINDINGS: RIGHT LOBE: The right lobe of the thyroid gland measures 3.1 x 1.1 x 0.9 cm. There is a heterogeneous echotexture. Redemonstration of a mixed echotexture lobular nodule with hilar flow which appears to represent a lymph node. LEFT LOBE: The left lobe of the thyroid gland measures 2.2 x 0.7 x 0.6 cm. There is a heterogeneous echotexture. There are no demonstrated solid, cystic or complex lesions. Peripheral lymph node also seen at the inferior aspect of the left lobe of the thyroid gland maximally measuring 4.2 mm in diameter. ISTHMUS: The isthmus measures . The regional lymph nodes are normal. US/Thyroid IMPRESSION: 1. Sequela of chronic thyroiditis with diffusely small coarse and heterogeneous thyroid gland. No visualized malignant abnormality. 2. TR2: 2 points = not suspicious 3. If physical symptoms, abnormal thyroid values or other findings warrant further radiologic assessment repeat the study and consider nuclear medicine iodine 123 or PET/CT if there is concern for malignancy. 4. Targeted image guided biopsy of nodules of interest can also be performed with definitive pathologic assessment and diagnosis. ACR Thyroid Imaging Reporting and Data System (ACR TI-RADS) Reference: COMPOSITION (choose 1): Cystic or almost completely cystic - 0 points Spongiform- 0 points Mixed cystic and solid - 1 point Solid almost completely solid - 2 points ECHOGENICITY (choose 1): Anechoic space - 0 points Hyperechoic or isoechoic-1 point Hypoechoic-2 points Very hypoechoic-3 points SHAPE (choose 1): : Wider than tall-0 points Taller than wide-3 points MARGINS ( smooth, lobular, ill-defined) ECHOGENIC FOCI (macro or microcalcifications) Scoring and classification TR1: 0 points = benign TR2: 2 points = not suspicious TR3: 3 points = mildly suspicious TR4: 4-6 points = moderately suspicious TR5: ?7 points = highly suspicious Recommendations TR1: no FNA required TR2: no FNA required TR3: ?1.5 cm follow up, ?2.5 cm FNA = follow up: 1, 3 and 5 years TR4: ?1.0 cm follow up, ?1.5 cm FNA = follow up: 1, 2, 3 and 5 years TR5: ?0.5 cm follow up, ?1.0 cm FNA = annual follow up for up to 5 years FNA biopsy is recommended for suspicious lesions (TR3-TR5) with the above size criteria. If there are multiple nodules, the two with the highest ACR TI-RADS scores should be sampled (rather than the two largest), with largest size being used a tie-breaker if there are multiple nodules of the same classification. Electronically Signed: Ramos Godwin MD at 9:30 EST Reading Location ID and State: [facility] / [place] , Service support ,
== END | disposition home or self-care (01) ==
LOC: US 12:50
PROVIDERS: PCP Family Medicine; Referring Provider Family Medicine; Visit Provider Family Medicine
DX: E04.1 Nontoxic single thyroid nodule (principal)
CPT/HCPCS: 76536

== ENCOUNTER → 2024-08-23 | Outpatient (CLI) | payer BC, SELFPAY ==
[2024-08-23 11:52] LABS: Absolute Neutrophil Count 2.2 X10^3/uL (2.0-7.7); Basophil# 0.03 X10^3/uL; Basophil% 0.7 % (0-1); Eosinophil# 0.04 X10^3/uL; Eosinophils% 0.9 % (0-5); Hematocrit 42.6 % (37-47); Lymphocyte % 39.6 % (19-41); Mean Corp Hgb Conc 32.9 g/dL (32-36); Mean Corpuscular Hgb 29.9 pg (27.0-32.0); Mean Platelet Vol. 11.5 fl (6.2-12.0); Monocyte# 0.43 X10^3/uL; Monocyte% 9.5 % (0-10); NRBC Flagged by Analyzer 0 % (0-5); Neutrophil # 2.24 X10^3/uL (2.7-7.7); Neutrophil % 49.1 % (47-70); Platelet Count 300 K/mm3 (150-450); RBC Distribution Width CV 12.1 % (11.6-14.6); RBC Distribution Width SD 40.4 fl (35.1-43.9); Red Blood Count 4.68 M/mm3 (4.2-5.4); White Blood Count 4.6 K/mm3 (4.4-11.0)
[2024-08-23 12:12] LABS: ALB/GLOB Ratio 0.9 RATIO (0.9-2.4); AST(SGOT) 23 U/L (15-37); Alanine Aminotransfer ALT/SGPT 20 U/L (13-56); Albumin, Serum 3.5 g/dL (3.2-5.0); Alkaline Phosphatase 71 U/L (45-117); Anion Gap 7 (5-15); BUN 13 mg/dL (7-18); BUN/Creat Ratio 18.3 RATIO (10-20); Calcium,Total 9.5 mg/dL (8.5-10.1); Chloride 107 mmol/L (98-107); Cholesterol 150 mg/dL (200); Creatinine, Serum 0.71 mg/dL (0.55-1.02); EST Glomerular Filtration Rate 94 mL/min (>60); Est Glom Filt Rate - Afr Amer 113 mL/min (>60); Globulin 4.1 g/dL (2.2-4.2); Glucose 118 mg/dL (74-106); High Density Lipoprotein 39 mg/dL; Potassium 3.7 mmol/L (3.5-5.1); Protein, Total 7.6 g/dL (6.4-8.2); Sodium Level 139 mmol/L (136-145); T4 Free Direct 1.11 ng/dL (0.76-1.46); Thyroid Stim Hormone (TSH) 0.078 uIU/mL (0.358-3.740); Triglycerides 192 mg/dL; Very Low Density Lipoprotein 38 mg/dL (5-40)
[2024-08-26 15:35] LABS: Vitamin D,25 Hydroxy 27.2 ng/mL
[2024-08-27 10:50] LABS: Hemoglobin A1c 5.4 % (3.8-5.6)
== END | disposition home or self-care (01) ==
LOC: MFPLAB 10:03
PROVIDERS: PCP Family Medicine; Referring Provider Family Medicine; Visit Provider Family Medicine
DX: R73.09 Other abnormal glucose (principal); E03.9 Hypothyroidism, unspecified; E55.9 Vitamin D deficiency, unspecified
CPT/HCPCS: 36415; 80053; 80061; 82306; 83036; 84439; 84443; 85025

== ENCOUNTER → 2025-01-07 | Outpatient (CLI) | payer BC, SELFPAY ==
[2025-01-07 15:19] LABS: Absolute Lymphocyte Count 2.51 X10^3/uL (0.83-4.51); Absolute Neutrophil Count 4.7 X10^3/uL (2.0-7.7); Basophil# 0.03 X10^3/uL; Basophil% 0.4 % (0-1); Eosinophil# 0.07 X10^3/uL; Eosinophils% 0.9 % (0-5); Hematocrit 41.8 % (37-47); Hemoglobin 14.1 g/dL (12.0-15.0); Lymphocyte # 2.51 X10^3/ul (0.83-4.51); Lymphocyte % 31.9 % (19-41); Mean Corp Hgb Conc 33.7 g/dL (32-36); Mean Corpuscular Volume 91.9 fL (81-99); Mean Platelet Vol. 11.2 fl (6.2-12.0); Monocyte# 0.57 X10^3/uL; Monocyte% 7.2 % (0-10); NRBC Flagged by Analyzer 0 % (0-5); Neutrophil # 4.68 X10^3/uL (2.7-7.7); Neutrophil % 59.3 % (47-70); Platelet Count 301 K/mm3 (150-450); RBC Distribution Width CV 12.4 % (11.6-14.6); RBC Distribution Width SD 41.6 fl (35.1-43.9); Red Blood Count 4.55 M/mm3 (4.2-5.4); White Blood Count 7.9 K/mm3 (4.4-11.0)
[2025-01-07 16:24] LABS: ALB/GLOB Ratio 1.1 RATIO (0.9-2.4); AST(SGOT) 24 U/L (<=31); Alanine Aminotransfer ALT/SGPT 16 U/L (<=34); Alkaline Phosphatase 82 U/L (35-104); Anion Gap 11 (5-15); BUN 14 mg/dL (4-19); BUN/Creat Ratio 18.9 RATIO (10-20); Calcium,Total 9.4 mg/dL (7.6-11.0); Carbon Dioxide 24.7 mmol/L (21.0-32.0); Chloride 103 mmol/L (98-108); Creatinine, Serum 0.72 mg/dL (0.70-1.20); EST Glomerular Filtration Rate 104 (>60); Globulin 3.6 g/dL (2.2-4.2); Glucose 121 mg/dL (70-99); Protein, Total 7.6 g/dL (5.9-8.4); Sodium Level 138 mmol/L (133-145)
[2025-01-07 16:25] LABS: Vitamin D,25 Hydroxy 23.2 ng/mL (30-100)
[2025-01-08 16:49] LABS: Hemoglobin A1c 5.4 % (<=5.6)
== END | disposition home or self-care (01) ==
LOC: MTLAB 12:41
PROVIDERS: PCP Family Medicine; Referring Provider Family Medicine; Visit Provider Family Medicine
DX: E03.9 Hypothyroidism, unspecified (principal); R73.09 Other abnormal glucose
CPT/HCPCS: 36415; 80053; 82306; 83036; 84439; 84443; 85025

== ENCOUNTER 2025-03-04 10:33 | Emergency (ER) | payer BC, SELFPAY ==
[2025-03-04 10:34] VITALS: BP 131/88; PULSE 81; RESP 16; TEMP 36.6; O2SAT 98; BMI 33.4
--- NOTE | 2025-03-04 10:53 | EDS_ITS ---
HPI History of Present Illness Chief Complaint: General Illness Informant: patient and parent Narrative Narrative: Presents to ED after speaking with her psychiatry office with the nurse. History of anxiety depression and OCD. She is followed by Dr. Pickard. She is seen her psychiatrist last month. Report was started on Vraylar, weaned off her Abilify and finished her Abilify a week ago. Since being on Vraylar increasing restlessness, pacing, anxiety symptoms. She contacted her psychiatrist a week ago again yesterday was told to stop her Vraylar. Last dose was yesterday. Today continued symptoms tried calling the office per patient and mother was liza d to see her PCP or the ED. She denies suicidal homicidal ideations. She is chronically on escitalopram, clonazepam 0.5 mg twice a day and buspirone. Reports symptoms started after taking the Vraylar. Prior similar symptoms: No PFSH PFSH Medical History MDD (major depressive disorder) OCD (obsessive compulsive disorder) DIPTI (generalized anxiety disorder) Thyroid nodule greater than or equal to 1 cm in diameter incidentally noted on imaging study Chronic ITP (idiopathic thrombocytopenia) Anxiety Depression Back problem Hypothyroid Home Medications ?Medication ?Instructions ?Recorded ?Last Taken ?Type ergocalciferol (vitamin D2) 1,250 cap PO 07/07/21 Unkn own History mcg (50,000 unit) capsule levothyroxine 150 mcg tablet 150 mcg PO 08/15/22 Unkno wn History (Synthroid) buspirone 10 mg tablet 20 mg (2 x 10 mg) PO BID 90 days 11/04/24 Unknown Rx #360 tabs escitalopram oxalate 20 mg tablet 20 mg PO QDAY 90 day s #90 tabs 11/04/24 Unknown Rx propranolol 10 mg tablet 10 mg PO BID PRN akathisia 3 0 days 11/26/24 Unknown Rx #60 tabs cariprazine 1.5 mg capsule 1.5 mg PO QDAY #30 caps Unknown Rx (Vraylar) clonazepam 0.5 mg tablet 0.5 mg PO BID 90 days #180 t abs 02/14/25 Unknown Rx Allergy/AdvReac Type Severity Reaction Status Date / Time No Known Allergies Allergy Verified 03/04/25 10:36 Family History Grandmother Heart disease Hypertension Grandfather Heart disease Diabetes Cancer Father Heart disease Hypertension Aunt Diabetes Surgical History S/P wisdom tooth extraction Social History Smoking Status: Never smoker alcohol intake: never ROS ROS ED Constitutional Constitutional ED: Denies chills, fever(s) or sweats ENT ENT ED: Denies sore throat Cardiovascular Cardiovascular: Denies chest pain, leg edema, palpitations or racing heartbeat Respiratory/Chest Respiratory/Chest: Denies cough, dyspnea or dyspnea on exertion Gastrointestinal Gastrointestinal: Denies abdominal pain, diarrhea, nausea or vomiting Genitourinary Genitourinary ED: Denies dysuria, hematuria or urinary frequency Musculoskeletal Musculoskeletal: Denies back pain, extremity pain or neck pain Integumentary Denies rash or wounds Neurologic Neurologic: Reports other; Denies headache(s), paresthesias or weakness Psychiatric Psychiatric: Reports anxiety and other Details: Restlessness. No suicidal or homicidal ideations. EXAM Physical Exam Const Vital Signs: 03/04/25 10:34 03/04/25 11:01 Temperature 98 F Temperature Source Oral Pulse Rate 81 Respiratory Rate 16 Respiratory Effort Normal Non-Labored Respiratory Pattern Normal Blood Pressure 131/88 H Blood Pressure Mean 102 Pulse Ox 98 Oxygen Delivery Method Room Air Positive well nourished and well developed General Appearance ED: well developed and NAD HEENT Reports moist mucous membranes normocephalic and atraumatic Eyes General Eye ED: Yes normal appearance of both eyes Neck full ROM Chest Wall Chest: Negative for tenderness Resp normal respiratory effort and normal air movement Effort and Inspection: symmetric chest movement; Negative for respiratory distress Cardio regular rate, regular rhythm and no murmurs Peripheral Pulses: pulses 2+ throughout GI normal to inspection, nondistended, normoactive bowel sounds and non-tender Palpation: Negative for guarding or rebound tenderness present Extremity normal to inspection General Extremety ED: Negative for edema or tenderness General Extremity: Negative for edema Neuro oriented x3 and no sensory deficits noted Sensorium / Orientation: awake and alert Psych Psych Narrative: Denies homicidal or suicidal ideation. Skin no rashes or lesions noted and no wounds MDM MDM MDM Narrative Medical decision making narrative: Interventions / MDM: Differential diagnosis: Medication side effects, history of anxiety, restlessness Diagnosis considered but do not suspect: N/A My EKG interpretation: N/A Imaging independently reviewed and interpreted by myself: N/A External documents reviewed: N/A Test considered but not ordered:N/A ED course: Reviewing her medication of Vraylar does cause the symptoms she is describing. Last dose was yesterday continue symptoms she is on clonazepam she took her dose this morning. She has no suicidal or homicidal ideations. She is referred here from nursing from psychiatry office due to not getting appointment in today. I will reach out to her psychiatrist discussed plan of care. 1145: I spoke with nursing at Dr. Pickard's office, Prema, she spoke with the patient this morning. I discussed symptoms started after the Vraylar which was stopped. She confirmed this in the notes. Discussed she is on clonazepam. I discussed plan of care is to increase her clonazepam to 1 mg as needed twice a day. She states she will place a note on this and records as she may run out of her medication sooner and this is a scheduled medication. They will refill if needed. She has an appointment on March 18. She will continue to hold her Vraylar. This was discussed with patient and mother who understands and agrees with plan. 1 mg dose was given in the ED. All questions were answered. Re-evaluation: stable Disposition discussed with patient/family/significant other: Patient and mother Case discussed with consulting clinician: psychiatry office This note was generated with [employer] dictation software. It may contain incorrect words, spelling, and punctuation that were not noted in checking the note before signing. Discharge Plan Triage Chief Complaint: General Illness ED Provider: Garry Anthony Dx/Rx/DC Orders Clinical Impression: Restlessness, Anxiety, Medication side effect Instructions: Anxiety Disorders Tx Prescriptions: No Action ergocalciferol (vitamin D2) 1,250 mcg (50,000 unit) capsule PO levothyroxine [Synthroid] 150 mcg tablet 150 mcg PO buspirone 10 mg tablet 20 mg PO BID 90 Days Qty: 360 1RF escitalopram oxalate 20 mg tablet 20 mg PO QDAY 90 Days Qty: 90 1RF Vraylar 1.5 mg capsule 1.5 mg PO QDAY Qty: 30 2RF propranolol 10 mg tablet 10 mg PO BID PRN (Reason: akathisia) 30 Days Qty: 60 1RF clonazepam 0.5 mg tablet 0.5 mg PO BID 90 Days Qty: 180 1RF Primary Care Provider: Braxton Maher Referrals: Braxton Maher MD [Primary Care Provider] - Elmer Pickard DO [Med Staff - Radio Interference Trouble Shooter] - Keep Gilmer appointment Activity Restrictions/Additional Instructions: I discussed with Dr. Pickard office. Continue to stop your Vraylar. You may increase your clonazepam to 2 tablets twice a day as needed. They will refill your medications if needed. Keep your follow-up appointment. Print Language: Italian Disposition Disposition: Home, Self Care
[2025-03-04] MEDS: clonazePAM 1 MG Tablet PO (11:29)
== END 2025-03-04 12:27 | disposition home or self-care (01) ==
PROVIDERS: Emergency Provider Emergency Medicine; PCP Family Medicine; Visit Provider Emergency Medicine
DX: T50.995A Adverse effect of other drugs, medicaments and biological substances, initial encounter (principal); F41.9 Anxiety disorder, unspecified; R45.1 Restlessness and agitation
CPT/HCPCS: 99282

== ENCOUNTER 2025-03-06 00:38 | Emergency (ER) | payer BC, SELFPAY ==
[2025-03-06 00:39] VITALS: BP 133/95; PULSE 83; RESP 17; TEMP 36.6; O2SAT 99; BMI 33.0
--- NOTE | 2025-03-06 00:50 | EX.ED.DYSGE1 ---
HPI History of Present Illness Chief Complaint: Other, Pain/Inj Informant: patient and parent Narrative Narrative: Patient is a 49-year-old female with past medical history of major depressive disorder generalized anxiety/compulsive disorder and extraforaminal movement disorder. Patient reports that she has recently stopped 2 medications and since that time her anxiety and need to move/pace has increased significantly. She was seen in the ER the other day and her clonazepam was increased and she was also placed on propranolol. Despite taking this symptoms have not reduced and patient is unable to sleep. She denies any homicidal or suicidal ideations but based on her persistent symptoms and inability to sleep she presents to the ER for symptom control [facility] Medical History (Updated 03/08/25 @ 23:[address] Sav Billingsley DO) Extrapyramidal movement disorder, drug-induced MDD (major depressive disorder) OCD (obsessive compulsive disorder) DIPTI (generalized anxiety disorder) Thyroid nodule greater than or equal to 1 cm in diameter incidentally noted on imaging study Chronic ITP (idiopathic thrombocytopenia) Anxiety Depression Back problem Hypothyroid Home Medications ?Medication ?Instructions ?Recorded ?Last Taken ?Type ergocalciferol (vitamin D2) 1,250 cap PO 07/07/21 Unknown History mcg (50,000 unit) capsule levothyroxine 150 mcg tablet 150 mcg PO 08/15/22 Unknown History (Synthroid) buspirone 10 mg tablet 20 mg (2 x 10 mg) PO BID 90 days 11/04/24 Unknown Rx #360 tabs escitalopram oxalate 20 mg tablet 20 mg PO QDAY 90 days #90 tabs 11/04/24 Unknown Rx benztropine 1 mg tablet 1 mg PO BID #60 tabs 03/06/25 Unknown Rx clonazepam 0.5 mg tablet 0.5 mg PO TID 03/06/25 Unknown History propranolol 10 mg tablet 10 mg PO TID PRN akathisia 30 days 03/06/25 Unknown Rx #90 tabs Allergy/AdvReac Type Severity Reaction Status Date / Time No Known Allergies Allergy Verified 03/06/25 15:06 Family History Grandmother Heart disease Hypertension Grandfather Heart disease Diabetes Cancer Father Heart disease Hypertension Aunt Diabetes Surgical History S/P wisdom tooth extraction Social History Smoking Status: Never smoker alcohol intake: never ROS ROS ED Constitutional Constitutional ED: Denies chills or fever(s) Eyes Eyes: Denies change in vision ENT ENT ED: Denies sore throat Cardiovascular Cardiovascular: Denies chest pain Respiratory/Chest Respiratory/Chest: Denies cough or dyspnea Gastrointestinal Gastrointestinal: Denies abdominal pain, diarrhea, nausea or vomiting Genitourinary Genitourinary ED: Denies dysuria Musculoskeletal Musculoskeletal: Denies myalgias Integumentary Denies rash Neurologic Neurologic: Denies headache(s) Psychiatric Psychiatric: Reports anxiety and depression; Denies suicidal ideation or suicidal thoughts Hematologic/Lymphatic Hematologic/Lymphatic: Denies easy bleeding or easy bruising EXAM Physical Exam Const Vital Signs: 03/06/25 00:39 03/06/25 00:47 Temperature 98 F Temperature Source Temporal Pulse Rate 83 Respiratory Rate 17 Respiratory Effort Normal Respiratory Pattern Normal Blood Pressure 133/95 H Blood Pressure Mean 107 Pulse Ox 99 Positive well nourished and well developed General Appearance ED: well developed; Negative for pallor HEENT HEENT Narrative: Normocephalic atraumatic Eyes PERRL and EOMs intact bilaterally General Eye ED: Negative for scleral icterus Neck supple Resp normal respiratory effort and clear to auscultation bilaterally Cardio regular rate and regular rhythm Extremity normal to inspection Neuro oriented x3, CN's II-XII intact bilaterally and no sensory deficits noted Sensorium / Orientation: alert Motor Exam: strength 5/5 throughout Psych Psych Narrative: Patient has a nervous/anxious affect with noted experimental movements. Mood & Affect: anxious Skin no rashes or lesions noted and no wounds General Skin Exam: Negative for jaundice or pallor MDM MDM MDM Narrative Medical decision making narrative: Patient presented secondary to inability to rest secondary to her increased anxiety and movement disorder after her medications had been changed. She is not homicidal she is not suicidal she did not have physical exam findings concerning for infection and she has family who are able to help care for her. Therefore I do not feel there is a need for testing or a psychiatric evaluation at this time. I will provide medication that should help reduce anxiety and provide sedation which will allow her to sleep this evening. Mother and patient understand to continue the medications as directed by her doctor and to contact her psychiatrist to see there is an emergent session open that they can discuss medication adjustments to better control her anxiety and movement disorder. History & Record Review Discussion w/independent historian: Patient and Family Discharge Plan Triage Chief Complaint: Other, Pain/Inj ED Provider: Sav Billingsley Dx/Rx/DC Orders Clinical Impression: DIPTI (generalized anxiety disorder), OCD (obsessive compulsive disorder), Extrapyramidal movement disorder, drug-induced, MDD (major depressive disorder) Instructions: DIPTI Prescriptions: No Action ergocalciferol (vitamin D2) 1,250 mcg (50,000 unit) capsule PO levothyroxine [Synthroid] 150 mcg tablet 150 mcg PO buspirone 10 mg tablet 20 mg PO BID 90 Days Qty: 360 1RF escitalopram oxalate 20 mg tablet 20 mg PO QDAY 90 Days Qty: 90 1RF clonazepam 0.5 mg tablet 0.5 mg PO TID benztropine 1 mg tablet 1 mg PO BID Qty: 60 1RF propranolol 10 mg tablet 10 mg PO TID PRN (Reason: akathisia) 30 Days Qty: 90 1RF Primary Care Provider: Braxton Maher Referrals: Braxton Maher MD [Primary Care Provider] - Elmer Pickard DO [Med Staff - [employer]] - Activity Restrictions/Additional Instructions: Please continue all the medications that were adjusted the other day with taking the propranolol twice a day and even the clonazepam up to 3 times a day. Follow-up with your psychiatrist to discuss medication adjustments and return to the ER should you have any further concerns Print Language: [place] Disposition Disposition: Home, Self Care Discharge Date/Time: 03/06/25 01:28
[2025-03-06 01:09] VITALS: BP 129/90; PULSE 78; RESP 18; TEMP 36.8; O2SAT 97
--- OUTSIDE RECORDS SUMMARY | 2025-03-06 05:01 | XMS RPT_ITS | CCD ---
Author Organization [facility] Care Team Providers Care Infection Prevention Coordinator Name Role Phone Santo Keith Primary Care Provider Veronica Camp Primary Care Provider [phone] Santo Keith Primary Care Provider Veronica Camp Primary Care Provider Dr. Rita Maher Primary Care Provider Dr. Rita Maher Referring Provider Dr. Jason Davidson Attending Provider Dr. Rita Maher Primary Care Provider Dr. Rita Maher Referring Provider [phone] Dr. Rita Maher Other Provider Dr. Yaa Moreno Attending Provider [phone] Unavailable Primary Care Provider UnavailLATASHA Morel Attending Unavailable LATASHA STALEY Referring Unavailable Unavailable Primary Care Provider UnavailElmer Blackburn Attending Unavailable Rita Maher Primary Care Unavailable Elmer Pickard Attending Unavailable Rita Maher Primary Care Unavailable Elmer Pickard Attending Unavailable Rita Maher Primary Care Unavailable lEmer Pickard Attending Unavailable Rita Maher Primary Care Unavailable Rita Maher Attending Unavailable Rita Maher Referring Unavailable Rita Maher Primary Care Unavailable Rita Maher Attending Unavailable Rita Maehr Referring Unavailable Rita Maher Primary Care Unavailable Garry Anthony Attending Unavailable Rita Maher Primary Care Unavailable Rita Maher Attending Unavailable Rita Maher Referring Unavailable Rita Maher Primary Care Unavailable Rita Maher Attending Unavailable Rita Maher Primary Care Unavailable Allergies Allergy Classification Reported Allergen(s) Allergy Type Date of Onset Reaction(s) Facility (7 sources) Non-steroidal anti-inflammator y agent Propensity to adverse reactions 10-19-2022 [facility] Medications Current Medications Medication Drug Class(es) Dates Sig (Normalized) Sig (Original) acetaminophen 325 mg / butalbital 50 mg / caffeine 40 mg oral tablet (6 sources) Barbiturate, Central Nervous System Stimulant, Methylxanthine Start: 10-19-2022 End: 10-24-2022 take 1-2 tablets by mouth every six hours as needed for headache butalbital-aceta minophen-caffein e 50-325-40 MG tablet Take 1-2 tablets by mouth every 6 hours as needed for headaches for up to 5 days. 20 tablet 0 10/19/2022 10/24/2022 Active 12 hr buPROPion hydrochloride 200 mg extended release oral tablet (20 sources) Aminoketone Start: 08-15-2022 Bupropion Hcl Active 200 MG PO August 15, 2022 1:00am Start: 07-07-2021 End: 08-15-2022 take 100 mg by mouth twice daily Bupropion Hcl Discontinued 100 MG PO TWICE A DAY July 07, 2021 12:00am August 15, 2022 10:04am Start: 04-23-2020 buPROPion HCL 200 mg 12 hr tablet take 2 tablets by mo [facility] twice daily buPROPion (Wellbutrin) 100 MG tablet Take 200 mg by mouth 2 times daily. Active busPIRone hydrochloride 10 mg oral tablet (19 sources) Start: 07-07-2021 busPIRone (Buspar) 10 MG tablet clonazePAM 0.5 mg oral tablet (20 sources) Benzodiazepine Start: 04-23-2020 Clonazepam Active TAB PO July 07, 2021 12:00am Comment on above: Take 1 tablet by [facility] once daily. cyclobenzaprine hydrochloride 10 mg oral tablet (1 source) Muscle Relaxant Start: 10-26-2019 End: 11-05-2019 take 1 tablet by mouth three times daily as needed for muscle spasms cyclobenzaprine (FLEXERIL) 10 MG tablet Indications: Muscle spasm of right calf Take 1 tablet by mouth 3 times daily as needed for Muscle spasms 20 tablet 0 10/26/2019 11/05/2019 Active ergocalciferol 1.25 mg oral capsule (12 sources) Provitamin D2 Compound Start: 07-07-2021 Ergocalciferol (Vitamin D2) Active CAP PO July 07, 2021 12:00am escitalopram 20 mg oral tablet (20 sources) Serotonin Reuptake Inhibitor Start: 07-07-2021 Escitalopram Oxalate Active TAB PO July 07, 2021 12:00am Start: 04-23-2020 escitalopram o xalate (LEXAPRO) 10 mg tablet Start: 04-23-2020 escitalopram o xalate (LEXAPRO) 20 mg tablet take 10 mg by mouth once daily E scitalopram Oxalate (LEXAPRO PO) Take 10 mg/day by mouth daily 0 Active ibuprofen 600 mg oral tablet (2 sources) Nonsteroidal Anti-inflammatory Drug Start: 10-26-2019 take 1 tablet by mouth every six hours as needed for pain ibuprofen (IBU) 600 MG tablet Indications: Muscle spasm of right calf Take 1 tablet by mouth every 6 hours as needed for Pain 120 tablet 3 10/26/2019 Active levothyroxine sodium 0.15 mg oral tablet (20 sources) l-Thyroxine Start: 07-19-2022 Levothyroxine (Synthroid) 150 mcg tablet Active 150 MCG PO August 15, 2022 1:00am Start: 07-07-2021 End: 08-15-2022 Levothyroxine Discontinued T AB PO July 07, 2021 12:00am August 15, 2022 10:04am Start: 09-21-2020 End: 12-20-2020 take 1 tablet by mouth once daily SYNTHROID 100 mcg tablet Take 1 tablet by mouth once daily. 90 tablet 3 09/21/2020 12/20/2020 Active Start: 09-21-2020 End: 12-20-2020 take 1 tablet by mouth once daily SYNTHROID 50 mcg tablet Take 1 tablet by mouth once daily. 90 tablet 3 09/21/2020 12/20/2020 Active Start: 04-13-2020 End: 09-18-2020 take 1 tablet by mouth once daily SYNTHROID 100 mcg tablet Take 1 tablet by mouth once daily. 0 04/13/2020 09/18/2020 Discontinued Start: 04-13-2020 End: 09-18-2020 take 1 tablet by mouth once daily SYNTHROID 50 mcg tablet Take 1 tablet by mouth once daily. 0 04/13/2020 09/18/2020 Discontinued Start: 02-08-2016 take 1 tablet by kaye th once daily levothyroxine (SYNTHROID) 125 MCG tablet Take 1 tablet by mouth Daily 30 tablet 3 02/08/2016 Active Comment on above: Take 1 tablet by kaye th once daily. metFORMIN hydrochloride 500 mg oral tablet (20 sources) Biguanide Start: 07-07-2021 take 500 mg by mouth once daily Metformin Active 500 MG PO DAILY July 07, 2021 12:00am Start: 09-21-2020 End: 12-20-2020 take 1 tablet by mouth once daily metFORMIN (GLUCOPHAGE) 500 mg tablet Take 1 tablet by mouth once daily. 90 tablet 3 09/21/2020 12/20/2020 Active Start: 07-03-2020 End: 09-18-2020 take 1 tablet by mouth once daily metFORMIN (GLUCOPHAGE) 500 mg tablet Take 1 tablet by mouth once daily. 0 07/03/2020 09/18/2020 Discontinued Comment on above: Take 1 tablet by kaye once daily. ondansetron 4 mg disintegrating oral tablet (6 sources) Serotonin-3 Receptor Antagonist Start: 10-19-19 End: 10-26-19 take 1 tablet by mouth every eight hours as needed for nausea and vomiting ondansetron ODT (Zofran-ODT) 4 MG disintegrating tablet Take 1 tablet (4 mg) by mouth every 8 hours as needed for nausea or vomiting for up to 7 days. 20 tablet 0 10/19/2022 10/26/2022 Active predniSONE 20 mg oral tablet (3 sources) take 10 mg by mouth three times daily predniSONE (DELTASONE) 20 MG tablet Take 10 mg by mouth three times daily 0 Active Completed/Discontinued Medications Medication Drug Class(es) Dates Sig (Normalized) Sig (Original) 1 ml dexamethasone phosphate 10 mg/ml injection (2 sources) Corticosteroid Start: 3 End: 3 dexAMETHasone (PF) (Decadron) injection 10 mg 1 ml diphenhydrAMINE hydrochloride 50 mg/ml cartridge (2 sources) Histamine-1 Receptor Antagonist Start: 3 End: 3 diphenhydrAMINE (BENADryl) injection 25 mg 2 ml prochlorperazine 5 mg/ml injection (2 sources) Phenothiazine Start: 3 End: 3 prochlorperazine (Compazine) injection 10 mg 50 ml sodium chloride 9 mg/ml injection (2 sources) Start: 3 End: 3 sodium chloride 0.9 % bolus 1,000 mL Problems Active Problems Problem Classification Problem Date Documented Date Episodic/Chronic Anxiety disorders (20 sources) Mixed anxiety and depressive disorder; Translations: [Obsessive-compulsive disorder] Onset: 08-11-2020 08-11-2020 Chronic Coagulation and hemorrhagic disorders (20 sources) Chronic idiopathic thrombocytopenic purpura; Translations: [Immune thrombocytopenic purpura] Onset: 02-05-2016 07-07-2021 Chronic Mood disorders (13 sources) Depressive disorder; Translations: [Depression] Onset: 02-04-2025 07-07-2021 Chronic Other screening for suspected conditions (not mental disorders or infectious disease) (7 sources) Viral screening status; Translations: [Platelet count below reference range] Onset: 02-05-2016 08-11-2020 Episodic Spondylosis; intervertebral disc disorders; other back problems (12 sources) Back problem; Translations: [Dorsopathy, unspecified] 07-07-2021 Episodic Thyroid disorders (20 sources) Hypothyroidism; Translations: [Thyroid nodule] Onset: 09-12-2024 08-11-2020 Chronic Thyroid disorders (1 source) Atrophy of thyroid - acquired; Translations: [Hypothyroidism due to acquired atrophy of thyroid] Episodic Unclassified (4 sources) Patient encounter status; Translations: [Screening for cholesterol level] Onset: 08-11-2020 08-11-2020 Past or Other Problems Problem Classification Problem Date Documented Da te Episodic/Chronic Coagulation and hemorrhagic disorders (3 sources) Immune thrombocytopenia; Translations: [Immune thrombocytopenia] Onset: 07-02-2016 07-02-2016 Episodic Diabetes mellitus without complication (1 source) Other abnormal glucose; Translations: [Other abnormal glucose] Onset: 09-24-2024 Episodic Headache; including migraine (2 sources) Headache; Translations: [Nonintractable episodic headache, unspecified headache type] Episodic Nausea and vomiting (2 sources) Nausea and vomiting; Translations: [Nausea with vomiting, unspecified] Episodic Nonspecific chest pain (2 sources) Chest pain; Translations: [Chest pain, unspecified] Episodic Results Test Name Value Interpretation Reference Range Facility Emergency Department Summary on 03-04-2025 Emergency Department Summary [facility] Medical Records Department [address] [place] [address] Emergency Department Summary 03/04/25 MR#: [id number] Acct: [id number] Name: JOVITA CABAN Rep #: [id number] : 1975 49 From: Garry Mckenzie PCP: Dr. Rita Maher MD Status:REG ER Location: ED HPI History of Present Illness Chief Complaint: General Illness Informant: patient and parent Narrative Narrative: Presents to ED after speaking with her psychiatry office with the nurse. History of anxiety depression and OCD. She is followed by Dr. Pickard. She is seen her psychiatrist last month. Report was started on Vraylar, weaned off her Abilify and finished her Abilify a week ago. Since being on Vraylar increasing restlessness, pacing, anxiety symptoms. She contacted her psychiatrist a week ago again yesterday was told to stop her Vraylar. Last dose was yesterday. Today continued symptoms tried calling the office per patient and mother was told to see her PCP or the ED. She denies suicidal homicidal ideations. She is chronically on escitalopram, clonazepam 0.5 mg twice a day and buspirone. Reports symptoms started after taking the Vraylar. Prior similar symptoms: No PFSH PFSH Medical History MDD (major depressive disorder) OCD (obsessive compulsive disorder) DIPTI (generalized anxiety disorder) Thyroid nodule greater than or equal to 1 cm in diameter incidentally noted on imaging study Chronic ITP (idiopathic thrombocytopenia) Anxiety Depression Back problem Hypothyroid Home Medications ???Medication ???Instructions ???Recorded ???Last Taken ???Type ergocalciferol (vitamin D2) 1,250 cap PO 07/07/21 Unknown History mcg (50,000 unit) capsule levothyroxine 150 mcg tablet 150 mcg PO 08/15/22 Unknown Histor y (Synthroid) buspirone 10 mg tablet 20 mg (2 x 10 mg) PO BID 90 days 0 11/04/24 Unknown Rx #360 tabs escitalopram oxalate 20 mg tablet 20 mg PO QDAY 90 days #90 tabs Unknown Rx propranolol 10 mg tablet 10 mg PO BID PRN akathisia 30 days 11/26/24 Unknown Rx #60 tabs cariprazine 1.5 mg capsule 1.5 mg PO QDAY #30 caps 02/04/25 U nknown Rx (Vraylar) clonazepam 0.5 mg tablet 0.5 mg PO BID 90 days #180 tabs Unknown Rx Allergy/AdvReac Type Severity Reaction Status Date / Time No Known Allergies Allergy Verified 03/04/25 10:36 Family History Grandmother Heart disease Hypertension Grandfather Heart disease Diabetes Cancer Father Heart disease Hypertension Aunt Diabetes Surgical History S/P wisdom tooth extraction Social History Smoking Status: Never smoker alcohol intake: never ROS ROS ED Constitutional Constitutional ED: Denies chills, fever(s) or sweats ENT ENT ED: Denies sore throat Cardiovascular Cardiovascular: Denies chest pain, leg edema, palpitations or racing heartbeat Respiratory/Chest Respiratory/Chest: Denies cough, dyspnea or dyspnea on exertion Gastrointestinal Gastrointestinal: Denies abdominal pain, diarrhea, nausea or vomiting Genitourinary Genitourinary ED: Denies dysuria, hematuria or urinary frequency Musculoskeletal Musculoskeletal: Denies back pain, extremity pain or neck pain Integumentary Denies rash or wounds Neurologic Neurologic: Reports other; Denies headache(s), paresthesias or weakness Psychiatric Psychiatric: Reports anxiety and other Details: Restlessness. No suicidal or homicidal ideations. EXAM Physical Exam Const Vital Signs: 03/04/25 10:34 03/04/25 11:01 Temperature 98 F Temperature Source Oral Pulse Rate 81 Respiratory Rate 16 Respiratory Effort Normal Non-Labored Respiratory Pattern Normal Blood Pressure 131/88 H Blood Pressure Mean 102 Pulse Ox 98 Oxygen Delivery Method Room Air Positive well nourished and well developed General Appearance ED: well developed and NAD HEENT Reports moist mucous membranes normocephalic and atraumatic Eyes General Eye ED: Yes normal appearance of both eyes Neck full ROM Chest Wall Chest: Negative for tenderness Resp normal respiratory effort and normal air movement Effort and Inspection: symmetric chest movement; Negative for respiratory distress Cardio regular rate, regular rhythm and no murmurs Peripheral Pulses: pulses 2+ throughout GI normal to inspection, nondistended, normoactive bowel sounds and non-tender Palpation: Negative for guarding or rebound tenderness present Extremity normal to inspection General Extremety ED: Negative for edema or tenderness General Extremity: Negative for edema Neuro oriented x3 and no sensory deficits (more content not included)... Normal [facility] MR/BMS.BPon 02-04-2025 MR/BMS.BP [address], [address] [place] [id number] OFFICE VISIT Date of Service: 02/04/25 MR#: [id number] Acct: [id number] Name: JOSÉ MIGUELJOVITA FRIAS Rep #: [id number] : 1975 Provider: Dr. Elmer Irwin se, DO Age/Sex: 49/F Location: [facility] [place].BP Status: Signed Intake Vital Signs 11/04/24 08:31 02/04/25 08:27 Height 5 ft 6 in 5 ft 6 in Weight: 207 lb BMI 33.4 BP 112/76 Blood Pressure Location Lt brachial Position Sitting Respiration 16 Pulse 84 Pulse Source Monitor BP Intake Visit Reasons: 3 M FU Accompanied by: Self Allergies No Known Allergies Allergy (Unverified 02/04/25 08:29) Medications ???Medication ???Instructions ???Recorded ???Confirmed ???Type ergocalciferol (vitamin D2) 1,250 cap PO 07/07/21 02/04/25 History mcg (50,000 unit) capsule levothyroxine 150 mcg tablet 150 mcg PO 08/15/22 02/04/25 Histo ry (Synthroid) buspirone 10 mg tablet 20 mg (2 x 10 mg) PO BID 90 days 0 11/04/24 02/04/25 Rx #360 tabs clonazepam 0.5 mg tablet 0.5 mg PO BID 90 days #180 tabs 02/04/25 Rx escitalopram oxalate 20 mg tablet 20 mg PO QDAY 90 days #90 tabs 02/04/25 Rx propranolol 10 mg tablet 10 mg PO BID PRN akathisia 30 days 11/26/24 02/04/25 Rx #60 tabs cariprazine 1.5 mg capsule 1.5 mg PO QDAY #30 caps 02/04/25 0 02/04/25 Rx (Vraylar) [facility] Medical History (Updated 02/04/25 @ 08:[address] Elmer Pickard, DO) MDD (major depressive disorder) OCD (obsessive compulsive disorder) DIPTI (generalized anxiety disorder) Thyroid nodule greater than or equal to 1 cm in diameter incidentally noted on imaging study Chronic ITP (idiopathic thrombocytopenia) Anxiety Depression Back problem Hypothyroid Surgical History S/P wisdom tooth extraction Family History (Updated 08/15/22 @ 09:02 by Blanca Perkins) Grandmother Heart disease Hypertension Grandfather Heart disease Diabetes Cancer Father Heart disease Hypertension Aunt Diabetes Social History Smoking Status: Never smoker alcohol intake: never HPI History of Present Illness History provided by: patient HPI: Jovita Caban is a 49 year old female who presents today for follow up evaluation. Has gained about 20 lbs since starting abilify. Has not noticed any significant benefit with the use of aripiprazole. Has still been taking regularly. Has been feeling somewhat more suh. Also more recently has been feeling like a zombie. Continues to be stressed about things, and feels like nearly everything.Has been having some more intrusive thoughts, specifically for the last 1.5 months. Does feel significant stress right before she ahs to go to work. Sleep has been so-so. Has been able to fall asleep, but doesn't stay asleep well. Only getting 3 hours before her first awakening. Does feel like her appetite is increased. Has been having panic attacks, about once every few weeks. Does also admit to feeling depressed. Denies any thoughts of suicide at this time. Review of Systems Constitutional Reports: fatigue; Denies: fever(s), chills or change in weight Eyes Denies: change in vision or blurry vision Ears, Nose, Mouth, Throat Denies: throat pain, neck pain or change in hearing Cardiovascular Denies: chest pain, palpitations or dyspnea Respiratory Denies: dyspnea, cough or wheezing Gastrointestinal Denies: abdominal pain, vomiting, diarrhea or constipation Genitourinary Denies: dysuria or urinary frequency Musculoskeletal Reports: back pain and muscle weakness; Denies: neck pain or joint pain Integumentary/Breast Denies: rash or new lesions Neurological Reports: headache(s) and dizziness; Denies: confusion Psychiatric Reports: anxiety, loss of interest, irritability and difficulty concentrating Endocrine Reports: fatigue; Denies: excessive sweating Hematologic/Lymphati c Reports: easy bruising; Denies: easy bleeding Allergic/Immunologic Denies: wheezing Exam Mental Status Exam - Psych Appearance adequately groomed and appears younger than stated age Attitude other (Anxious) Activity/Motor Behavior fidgeting Speech regular rate, regular volume and regular prosody Mood anxious Affect restricted Thought Process logical, coherent and circumstantial Thought Content no delusions and no hallucinations Suicidal Ideation none Homicidal Ideation none Attention intact Concentration intact Sensorium/Orientatio n awake, alert and oriented x3 Memory/Cognition other (appropriate for stated age) Insight good Judgement good Assessment Plan Assessment Plan (1) OCD (obsessive compulsive disorder): Plan: - We will change Abilify to (more content not included)... Normal [facility] Hemoglobin A1con 01-08-2025 HbA1c (Bld) [Mass fraction] 5.4 % Normal <=5.6 [facility] Comment on above: Order Comment: ADD A 1C TO H192 FROM 01-07-25 PLEASE Result Comment: Norm al < 5.7 % Prediabetic 5.7 - 6.4 % Diabetic >or= 6.5 % Please note range changes. Performed By: #### L 506.1001, L501.9969 #### [facility] [address] [place], [address] CBC W/Diff, Automatedon 12-11 Absolute Lymph 2.51 X10 3/uL Normal 0.83-4.51 [facility] Comment on above: Order Comment: Order Date: 08/24/24Order Info: 0184-1 - CBCD Performed By: #### L 500.4050, L100.0100, L501.9520 ####[facility] [address] [place], [address] Absolute Neut 4.7 X10 3/uL Normal 2.0-7.7 [facility] Comment on above: Order Comment: Order Date: 08/24/24Order Info: 0184-1 - CBCD Performed By: #### L 500.4050, L100.0100, [id number] ####[facility] [address] [place], [address] Basophils/100 WBC (Bld) 0.4 % Normal 0-1 [facility] Comment on above: Order Comment: Order Date: 08/24/24Order Info: 0184- - CBCD Performed By: #### L 500.4050, L100.0100, [id number] ####[facility] [address] [place], [address] Eosinophils/100 WBC (Bld) 0.9 % Normal 0-5 [facility] Comment on above: Order Comment: Order Date: 08/24/24Order Info: 018- - CBCD Performed By: #### L 500.4050, L100.0100, [id number] ####[facility] [address] [place], [address] Erythrocyte distribution width (RBC) [Ratio] 12.4 % Normal 11.6-14.6 [facility] Comment on above: Order Comment: Order Date: 08/24/24Order Info: 0184-1 - CBCD Performed By: #### L 500.4050, L100.0100, L501.9520 ####[facility] [address] [place], [address] Hematocrit (Bld) [Volume fraction] 41.8 % Normal 37-47 [facility] Comment on above: Order Comment: Order Date: 08/24/24Order Info: 0184- - CBCD Performed By: #### L 500.4050, L100.0100, L501.9520 ####[facility] [address] [place], [address] Hemoglobin (Bld) [Mass/Vol] 14.1 g/dL Normal 12.0-15.0 [facility] Comment on above: Order Comment: Order Date: 08/24/24Order Info: 183- - CBCD Performed By: #### L 500.4050, L100.0100, L501.9520 ####[facility] [address] [place], [address] IG% 0.300 Normal 0.0-0.9 [facility] Comment on above: Order Comment: Order Date: 08/24/24Order Info: 183- - CBCD Result Comment: IG% - Immature Granulocytes (promyelocytes, myelocytes and metamyelocytes) > 1% indicates that a LEFT SHIFT is Present. Performed By: #### L 500.4050, L100.0100, L501.9520 ####[facility] [address] [place], [address] Lymphocytes/100 WBC (Bld) 31.9 % Normal 19-41 [facility] Comment on above: Order Comment: Order Date: 08/24/24Order Info: 018- - CBCD Performed By: #### L 500.4050, L100.0100, L501.9520 ####[facility] [address] [place], [address] MCH (RBC) [Entitic mass] 31.0 pg Normal 27.0-32.0 [facility] Comment on above: Order Comment: Order Date: 08/24/24Order Info: 018- - CBCD Performed By: #### L 500.4050, L100.0100, [id number] ####[facility] [address] [place], [address] MCHC (RBC) [Mass/Vol] 33.7 g/dL Normal 32-36 [facility] Comment on above: Order Comment: Order Date: 08/24/24Order Info: 0184-1 - CBCD Performed By: #### L 500.4050, L100.0100, [id number] ####[facility] [address] [place], [address] MCV (RBC) [Entitic vol] 91.9 fL Normal 81-[address] [facility] Comment on above: Order Comment: Order Date: 08/24/24Order Info: 0184-1 - CBCD Performed By: #### L 500.4050, L100.0100, [id number] ####[facility] [address] [place], [address] Monocytes/100 WBC (Bld) 7.2 % Normal 0-[address] [facility] Comment on above: Order Comment: Order Date: 08/24/24Order Info: 0184-1 - CBCD Performed By: #### L 500.4050, L100.0100, [id number] ####[facility] [address] [place], [address] Neutrophils/100 WBC (Bld) 59.3 % Normal 47-70 [facility] Comment on above: Order Comment: Order Date: 08/24/24Order Info: 0184-1 - CBCD Performed By: #### L 500.4050, L100.0100, L501.9520 ####[facility] [address] [place], [address] Nucleated RBC (Bld) [#/Vol] 0 10*3/uL Normal 0-5 [facility] Comment on above: Order Comment: Order Date: 08/24/24Order Info: 0184-1 - CBCD Performed By: #### L 500.4050, L100.0100, [id number] ####[facility] [address] [place], [address] Platelet mean volume (Bld) [Entitic vol] 11.2 fL Normal 6.2-12.0 [facility] Comment on above: Order Comment: Order Date: 08/24/24Order Info: 0184-1 - CBCD Performed By: #### L 500.4050, L100.0100, [id number] ####[facility] [address] [place], [address] Platelets (Bld) [#/Vol] 301 10*3/uL Normal 150-450 [facility] Comment on above: Order Comment: Order Date: 08/24/24Order Info: 0184-1 - CBCD Performed By: #### L 500.4050, L100.0100, [id number] ####[facility] [address] [place], [address] RBC (Bld) [#/Vol] 4.55 10*6/uL Normal 4.2-5.4 [facility] Comment on above: Order Comment: Order Date: 08/24/24Order Info: 0184-1 - CBCD Performed By: #### L 500.4050, L100.0100, [id number] ####[facility] [address] [place], [address] RDW SD 41.6 fl Normal 35.1-43.9 [facility] Comment on above: Order Comment: Order Date: 08/24/24Order Info: 0184-1 - CBCD Performed By: #### L 500.4050, L100.0100, [id number] ####[facility] [address] [place], [address] WBC (Bld) [#/Vol] 7.9 10*3/uL Normal 4.4-11.0 [facility] Comment on above: Order Comment: Order Date: 08/24/24Order Info: 0184-1 - CBCD Performed By: #### L 500.4050, L100.0100, L501.9520 ####[facility] [address] [place], [address] Comprehensive Metabolic Prof ilon 01-07-2025 Albumin [Mass/Vol] 4.0 g/dL Normal 3.5-5.0 [facility] Comment on above: Order Comment: Order Date: 01/07/25Order Info: 0786-1 - CMPOrder Info: 301-3 - TSHOrder Info: 3024-7 - T4F Performed By: #### L 500.4050, L100.0100, L501.9520 ####[facility] [address] [place], [address] Albumin/Globulin [Mass ratio] 1.1 {ratio} Normal 0.9-2.4 [facility] Comment on above: Order Comment: Order Date: 01/07/25Order Info: 0786-1 - CMPOrder Info: 3015-3 - TSHOrder Info: 3024-7 - T4F Performed By: #### L 500.4050, L100.0100, L501.9520 ####[facility] [address] [place], [address] ALK PHOS 82 U/L Normal 35-104 [facility] Comment on above: Order Comment: Order Date: 01/07/25Order Info: 0786-1 - CMPOrder Info: 3016-3 - TSHOrder Info: 3024-7 - T4F Performed By: #### L 500.4050, L100.0100, L501.9520 ####[facility] [address] [place], [address] ALT [Catalytic activity/Vol] 16 U/L Normal <=34 [facility] Comment on above: Order Comment: Order Date: 01/07/25Order Info: 0786-1 - CMPOrder Info: 3016-3 - TSHOrder Info: 3024-7 - T4F Performed By: #### L 500.4050, L100.0100, L501.9520 ####[facility] [address] [place], [address] AST [Catalytic activity/Vol] 24 U/L Normal <=31 [facility] Comment on above: Order Comment: Order Date: 01/07/25Order Info: 0786-1 - CMPOrder Info: 3 - TSHOrder Info: 3024-7 - T4F Performed By: #### L 500.4050, L100.0100, L501.9520 ####[facility] [address] [place], [address] Bilirubin [Mass/Vol] 0.20 mg/dL Normal 0.00-1.30 [facility] Comment on above: Order Comment: Order Date: 01/07/25Order Info: 785-1 - CMPOrder Info: 3 - TSHOrder Info: 3024-7 - T4F Performed By: #### L 500.4050, L100.0100, L501.9520 ####[facility] [address] [place], [address] BUN/CRE 18.9 RATIO Normal 10-20 [facility] Comment on above: Order Comment: Order Date: 01/07/25Order Info: 07-1 - CMPOrder Info: 3 - TSHOrder Info: 3024-7 - T4F Performed By: #### L 500.4050, L100.0100, L501.9520 ####[facility] [address] [place], [address] Calcium [Mass/Vol] 9.4 mg/dL Normal 7.6-11.0 [facility] Comment on above: Order Comment: Order Date: 01/07/25Order Info: 0786-1 - CMPOrder Info: 3 - TSHOrder Info: 3024-7 - T4F Performed By: #### L 500.4050, L100.0100, L501.9520 ####[facility] [address] [place], [address] Chloride [Moles/Vol] 103 mmol/L Normal 98-108 [facility] Comment on above: Order Comment: Order Date: 01/07/25Order Info: 86-1 - CMPOrder Info: 3 - TSHOrder Info: 3024-7 - T4F Performed By: #### L 500.4050, L100.0100, L501.9520 ####[facility] [address] [place], [address] CO2 [Moles/Vol] 24.7 mmol/L Normal 21.0-32.0 [facility] Comment on above: Order Comment: Order Date: 01/07/25Order Info: 785-1 - CMPOrder Info: 3015-11 - TSHOrder Info: 3024-7 - T4F Performed By: #### L 500.4050, L100.0100, L501.9520 ####[facility] [address] [place], [address] Creatinine [Mass/Vol] 0.72 mg/dL Normal 0.70-1.20 [facility] Comment on above: Order Comment: Order Date: 01/07/25Order Info: 785-1 - CMPOrder Info: 3 - TSHOrder Info: 3024-7 - T4F Performed By: #### L 500.4050, L100.0100, L501.9520 ####[facility] [address] [place], [address] GAP 11 Normal 5-15 [facility] Comment on above: Order Comment: Order Date: 01/07/25Order Info: 785-1 - CMPOrder Info: 3015-11 - TSHOrder Info: 3024-7 - T4F Performed By: #### L 500.4050, L100.0100, L501.9520 ####[facility] [address] [place], [address] GFR/1.73 sq M.predicted among non-blacks MDRD (S/P/Bld) [Vol rate/Area] 104 mL/min/{1.73_m2} Normal >60 [facility] Comment on above: Order Comment: Order Date: 01/07/25Order Info: 0786-1 - CMPOrder Info: 3015-11 - TSHOrder Info: 3024-7 - T4F Result Comment: mL/m in/1.73m2 CKD-EPI Creatinine Equation (2020) Performed By: #### L 500.4050, L100.0100, L501.9520 ####[facility] [address] [place], [address] Globulin (S) [Mass/Vol] 3.6 g/dL Normal 2.2-4.2 [facility] Comment on above: Order Comment: Order Date: 01/07/25Order Info: 785- - CMPOrder Info: 3015-11 - TSHOrder Info: 3024-7 - T4F Performed By: #### L 500.4050, L100.0100, L501.9520 ####[facility] [address] [place], [address] Glucose [Mass/Vol] 121 mg/dL High 70-99 [facility] Comment on above: Order Comment: Order Date: 01/07/25Order Info: 0786-1 - CMPOrder Info: 3 - TSHOrder Info: 3024-7 - T4F Performed By: #### L 500.4050, L100.0100, L501.9520 ####[facility] [address] [place], [address] Potassium [Moles/Vol] 4.0 mmol/L Normal 3.3-5.1 [facility] Comment on above: Order Comment: Order Date: 01/07/25Order Info: 0786-1 - CMPOrder Info: 3 - TSHOrder Info: 3024-7 - T4F Performed By: #### L 500.4050, L100.0100, L501.9520 ####[facility] [address] [place], [address] Sodium [Moles/Vol] 138 mmol/L Normal 133-145 [facility] Comment on above: Order Comment: Order Date: 01/07/25Order Info: 0786-1 - CMPOrder Info: 3015-3 - TSHOrder Info: 3024-7 - T4F Performed By: #### L 500.4050, L100.0100, L501.9520 ####[facility] [address] [place], [address] T PROT 7.6 g/dL Normal 5.9-8.4 [facility] Comment on above: Order Comment: Order Date: 01/07/25Order Info: 07-1 - CMPOrder Info: 3 - TSHOrder Info: 3024-7 - T4F Performed By: #### L 500.4050, L100.0100, L501.9520 ####[facility] [address] [place], [address] Urea nitrogen [Mass/Vol] 14 mg/dL Normal 4-19 [facility] Comment on above: Order Comment: Order Date: 01/07/25Order Info: 0786- - CMPOrder Info: 3 - TSHOrder Info: 3024-7 - T4F Performed By: #### L 500.4050, L100.0100, L501.9520 ####[facility] [address] [place], [address] T4 Free Directon 01-07-2025 T4 FREE DIRECT 0.90 ng/dL Normal 0.76-1.46 [facility] Comment on above: Order Comment: Order Date: 01/07/25Order Info: 07-1 - CMPOrder Info: 3 - TSHOrder Info: 3024-7 - T4F Performed By: #### L 506.0400 ####[facility] [address] [place], [address] Thyroid Stim Hormone (TSH)on 01-07-2025 TSH 2.230 uIU/mL Normal 0.300-4.200 [facility] Comment on above: Order Comment: Order Date: 01/07/25Order Info: 0786-1 - CMPOrder Info: 3016-3 - TSHOrder Info: 3024-03 - T4F Performed By: #### L 500.4050, L100.0100, L501.9520 ####[facility] [address] [place], [place], [address] Vitamin D,25 Hydroxyon 01-07 Vitamin D 25-OH 23.2 ng/mL Low 30-100 [facility] Comment on above: Order Comment: Order Date: 01/07/25 Order Info: 0786-1 - CMP Order Info: 30163 - TSH Order Info: 3027 - T4F Result Comment: Clotilde min D Status Deficiency: <20 ng/mL (50nmol/L) Insufficiency: 20-30 ng/mL (50-75 nmol/L) Sufficiency: 30-100 ng/mL (75-250 nmol/L) Toxicity: >100 ng/mL (>250 nmol/L) Performed By: #### L 506.1001, L501.9985 #### [facility] [address] [place], [place], [address] MR/BMS.BPon 11-04-2024 MR/BMS.BP [address], [address] [place] [address] OFFICE VISIT Date of Service: 11/04/24 MR#: [id number] Acct: [id number] Name: JOVITA CABAN Rep #: [id number] : 1975 Provider: Dr. Elmer Irwin se, DO Age/Sex: 49/F Location: [facility] [place].BP Status: Signed Intake Vital Signs 09/24/24 08:02 11/04/24 08:29 11/04/24 08:31 Height 5 ft 6 in 5 ft 6 in Weight: 185 lb BMI 29.8 BP 119/75 116/77 Blood Pressure Location Rt brachial Lt brachial Position Sitting Sitting Respiration 18 16 Pulse 87 76 Pulse Source Monitor Monitor BP Intake Visit Reasons: 6 wk FU Allergies No Known Allergies Allergy (Unverified 09/24/24 08:07) [facility] Medical History (Updated 08/12/24 @ 10:[address] Elmer Pickard, DO) OCD (obsessive compulsive disorder) DIPTI (generalized anxiety disorder) Thyroid nodule greater than or equal to 1 cm in diameter incidentally noted on imaging study Chronic ITP (idiopathic thrombocytopenia) Anxiety Depression Back problem Hypothyroid Surgical History S/P wisdom tooth extraction Family History (Updated 08/15/22 @ 09:02 by Blanca Perkins) Grandmother Heart disease Hypertension Grandfather Heart disease Diabetes Cancer Father Heart disease Hypertension Aunt Diabetes Social History Smoking Status: Never smoker alcohol intake: never HPI History of Present Illness History provided by: patient HPI: Jovita Caban is a 49 year old female who presents today for follow up evaluation. Patient reports that she has been ok. Patient reports that she feels like she always has to go. Because of this does have a hard time with concentration. Feels like she has been always hungry but otherwise feels like it is working well in regards to OCD symptoms. Has gained about 5 lbs with medication. This is tolerable for the time being. Family members have told her she seems much happier. Has been able to fall asleep fairly well but is tired very early in the morning. Denies any major panic attacks in recent past. Sister gave at the end of September. He was about 3 week premmature but is now doing well. Review of Systems Constitutional Reports: fatigue; Denies: fever(s), chills or change in weight Eyes Denies: change in vision or blurry vision Ears, Nose, Mouth, Throat Denies: throat pain, neck pain or change in hearing Cardiovascular Denies: chest pain, palpitations or dyspnea Respiratory Denies: dyspnea, cough or wheezing Gastrointestinal Denies: abdominal pain, vomiting, diarrhea or constipation Genitourinary Denies: dysuria or urinary frequency Musculoskeletal Reports: back pain and muscle weakness; Denies: neck pain or joint pain Integumentary/Breast Denies: rash or new lesions Neurological Reports: headache(s); Denies: dizziness or confusion Psychiatric Reports: anxiety, loss of interest, irritability and difficulty concentrating Endocrine Reports: fatigue, cold intolerance and heat intolerance; Denies: excessive sweating Hematologic/Lymphati c Reports: easy bruising; Denies: easy bleeding Allergic/Immunologic Denies: wheezing Exam Mental Status Exam - Psych Appearance adequately groomed and appears younger than stated age Attitude other (Anxious) Activity/Motor Behavior fidgeting Speech regular rate, regular volume and regular prosody Mood anxious (better) Affect full range Thought Process logical, coherent and circumstantial Thought Content no delusions and no hallucinations Suicidal Ideation none Homicidal Ideation none Attention intact Concentration intact Sensorium/Orientatio n awake, alert and oriented x3 Memory/Cognition other (appropriate for stated age) Insight good Judgement good Assessment Plan Assessment Plan (1) OCD (obsessive compulsive disorder): Plan: - Continue 2 mg aripiprazole for treatment refractory anxiety and OCD - Patient was informed of the risk, benefits, and possible side effects of antipsychotics medications. Side effects of these medications can include but are not limited to orthostatic hypotension (low blood pressure), weight gain, metabolic side effects, extrapyramidal side effects, and tardive dyskinesia. If you notice any abnormal movements including involuntary movement of muscles of face, lips, torso or legs please contact the office immediately. ??? Continue BuSpar and Lexapro as previously prescribed - will add 10 mg propranolol 10 mg BID for suspected akathisia/anxiety - advised of side effects of beta blockers (2) DIPTI (generalized anxiety disorder): Plan: - Continue clonazepam as previously prescribed at 0.5 mg twice a day ???Patient was informed risks of benzo use including (more content not included)... Normal [facility] MR/BMS.BPon 09-24-2024 MR/BMS.BP [facility], [address] [place] [id number] OFFICE VISIT Date of Service: 09/24/24 MR#: [id number] Acct: [id number] Name: JOVITA CABAN Rep #: [id number] : 1975 Provider: Dr. Elmer Irwin se, DO Age/Sex: 49/F Location: [facility] [place].BP Status: Signed Intake Vital Signs 08/12/24 09:58 09/24/24 08:02 Height 5 ft 6 in 5 ft 6 in Weight: 182 lb BMI 29.3 BP 121/78 H 119/75 Blood Pressure Location Rt brachial Rt brachial Position Sitting Sitting Respiration 18 18 Pulse 86 87 Pulse Source Monitor Monitor BP Intake Visit Reasons: 6 WK FU Accompanied by: Self Allergies No Known Allergies Allergy (Unverified 09/24/24 08:07) Medications ???Medication ???Instructions ???Recorded ???Confirmed ???Type ergocalciferol (vitamin D2) 1,250 cap PO 07/07/21 09/24/24 History mcg (50,000 unit) capsule levothyroxine 150 mcg tablet 150 mcg PO 08/15/22 09/24/24 History (Synthroid) buspirone 10 mg tablet 20 mg (2 x 10 mg) PO BID 90 days 08/12/24 09/24/24 Rx #360 tabs clonazepam 0.5 mg tablet 0.5 mg PO BID 90 days #180 tabs 08/12/24 09/24/24 Rx escitalopram oxalate 20 mg tablet 20 mg PO QDAY 90 days #90 tabs 08/12/24 09/24/24 Rx aripiprazole 2 mg tablet 2 mg PO QHS #30 tabs 09/24/24 09/24/24 Rx PFSH Medical History (Updated 08/12/24 @ 10:[address] Elmer Pickard, ) OCD (obsessive compulsive disorder) DIPTI (generalized anxiety disorder) Thyroid nodule greater than or equal to 1 cm in diameter incidentally noted on imaging study Chronic ITP (idiopathic thrombocytopenia) Anxiety Depression Back problem Hypothyroid Surgical History S/P wisdom tooth extraction Family History (Updated 08/15/22 @ 09:02 by Blanca Perkins) Grandmother Heart disease Hypertension Grandfather Heart disease Diabetes Cancer Father Heart disease Hypertension Aunt Diabetes Social History Smoking Status: Never smoker alcohol intake: never HPI History of Present Illness History provided by: patient HPI: Jovita Caban is a 49 year old female who presents today for follow up evaluation. Patient reports that she has been doing ok. Does feel like her family is always in chaos, [place] stress, and her sister is due with a child in the near future. Because of all this is feeling somewhat overwhelmed. Getting about 6 hours of broken sleep. Takes 25 mg of diphenhydramine twice at night at times to help with sleep. Appetite has been largely stable. Is interested in starting aripiprazole as we talked about, but is somewhat apprehensive about weight gain. Has not had any panic attacks in recent past, but does feel very overwhelmed. 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 Review of Systems Constitutional Reports: fatigue; Denies: fever(s), chills or change in weight Eyes Denies: change in vision or blurry vision Ears, Nose, Mouth, Throat Denies: throat pain, neck pain or change in hearing Cardiovascular Denies: chest pain, palpitations or dyspnea Respiratory Denies: dyspnea, cough or wheezing Gastrointestinal Denies: abdominal pain, vomiting, diarrhea or constipation Genitourinary Denies: dysuria or urinary frequency Musculoskeletal Reports: back pain and muscle weakness; Denies: neck pain or joint pain Integumentary/Breast Denies: rash or new lesions Neurological Reports: headache(s); Denies: dizziness or confusion Psychiatric Reports: anxiety, loss of interest, irritability and difficulty concentrating Endocrine Reports: fatigue, cold intolerance and heat intolerance; Denies: excessive sweating Hematologic/Lymphati c Reports: easy bruising; Denies: easy bleeding Allergic/Immunologic Denies: wheezing Exam Mental Status Exam - Psych Appearance adequately groomed and appears younger than stated age Attitude other (Anxious, overly corrects self) Activity/Motor Behavior fidgeting Speech regular rate, regular volume and regular prosody Mood anxious Affect anxious Thought Process logical, coherent and circumstantial Thought Content no delusions and no hallucinations Suicidal Ideation none Homicidal Ideation none Attention intact Concentration intact Sensorium/Orientatio n awake, alert and oriented x3 Memory/Cognition other (appropriate for stated age) Insight good Judgement good Exam Constitutional Documenting provider has reviewed patient's vital signs: yes Common normals: no acute distress, patient oriented x3 and alert General appearance: well developed Neuro Common normals: patient oriented x3 Sensorium/orientatio n: alert Gait (neuro): normal gait Assessment Plan Assessment Plan (1) OCD (obsessive compuls (more content not included)... Normal [facility] Hemoglobin A1con 08-27-2024 HbA1c (Bld) [Mass fraction] 5.4 % Normal 3.8-5.6 [facility] Comment on above: Order Comment: ASHLEE Ott ADD ON A1C TO BLOODWORK DONT ON 08 23 2024 Result Comment: Norm al < 5.7 % Prediabetic 5.7 - 6.4 % Diabetic >or= 6.5 % Please note range changes. Performed By: #### L 501.9985 #### [facility] [address] [place], [place], [address] Vitamin D,25 Hydroxyon 08-26 Vitamin D 25-OH 27.2 ng/mL Normal [facility] Comment on above: Order Comment: Order Date: 08/23/24Order Info: [id number] - VITD25 Result Comment: Clotilde min D 25(OH) Status Range Deficiency <20 ng/mL (50nmol/L) Insufficiency 20 - 30 ng/mL (50 - 75 nmol/L) Sufficiency 30 - 100 ng/mL (75 - 250 nmol/L) Toxicity >100 ng/mL (>250 nmol/L) Performed By: #### L 506.1000, L501.9520, L100.0100, L500.4050, L506.0400, L500.4100 ####[facility] [address] [place], [address] CBC W/Diff, Automatedon 08-11 Absolute Lymph 1.80 X10 3/uL Normal 0.83-4.51 [facility] Comment on above: Order Comment: Order Date: 08/23/24Order Info: 0184-1 - CBCD Performed By: #### L 506.1000, L501.9520, L100.0100, L500.4050, L506.0400, L500.4100 ####[facility] [address] [place], [address] Absolute Neut 2.2 X10 3/uL Normal 2.0-7.7 [facility] Comment on above: Order Comment: Order Date: 08/23/24Order Info: 0184-1 - CBCD Performed By: #### L 506.1000, L501.9520, L100.0100, L500.4050, L506.0400, L500.4100 ####[facility] [address] [place], [address] Basophils/100 WBC (Bld) 0.7 % Normal 0-1 [facility] Comment on above: Order Comment: Order Date: 08/23/24Order Info: 0184-1 - CBCD Performed By: #### L 506.1000, L501.9520, L100.0100, L500.4050, L506.0400, L500.4100 ####[facility] [address] [place], [address] Eosinophils/100 WBC (Bld) 0.9 % Normal 0-5 [facility] Comment on above: Order Comment: Order Date: 08/23/24Order Info: 0184-1 - CBCD Performed By: #### L 506.1000, L501.9520, L100.0100, L500.4050, L506.0400, L500.4100 ####[facility] [address] [place], [address] Erythrocyte distribution width (RBC) [Ratio] 12.1 % Normal 11.6-14.6 [facility] Comment on above: Order Comment: Order Date: 08/23/24Order Info: 0184-1 - CBCD Performed By: #### L 506.1000, L501.9520, L100.0100, L500.4050, L506.0400, L500.4100 ####[facility] [address] [place], [address] Hematocrit (Bld) [Volume fraction] 42.6 % Normal 37-47 [facility] Comment on above: Order Comment: Order Date: 08/23/24Order Info: 0184-1 - CBCD Performed By: #### L 506.1000, L501.9520, L100.0100, L500.4050, L506.0400, L500.4100 ####[facility] [address] [place], [address] Hemoglobin (Bld) [Mass/Vol] 14.0 g/dL Normal 12.0-15.0 [facility] Comment on above: Order Comment: Order Date: 08/23/24Order Info: 018- - CBCD Performed By: #### L 506.1000, L501.9520, L100.0100, L500.4050, L506.0400, L500.4100 ####[facility] [address] [place], [address] IG% 0.200 Normal 0.0-0.9 [facility] Comment on above: Order Comment: Order Date: 08/23/24Order Info: 018- - CBCD Result Comment: IG% - Immature Granulocytes (promyelocytes, myelocytes and metamyelocytes) > 1% indicates that a LEFT SHIFT is Present. Performed By: #### L 506.1000, L501.9520, L100.0100, L500.4050, L506.0400, L500.4100 ####[facility] [address] [place], [address] Lymphocytes/100 WBC (Bld) 39.6 % Normal 19-41 [facility] Comment on above: Order Comment: Order Date: 08/23/24Order Info: 0184- - CBCD Performed By: #### L 506.1000, L501.9520, L100.0100, L500.4050, L506.0400, L500.4100 ####[facility] [address] [place], [address] MCH (RBC) [Entitic mass] 29.9 pg Normal 27.0-32.0 [facility] Comment on above: Order Comment: Order Date: 08/23/24Order Info: 0184-1 - CBCD Performed By: #### L 506.1000, L501.9520, L100.0100, L500.4050, L506.0400, L500.4100 ####[facility] [address] [place], [address] MCHC (RBC) [Mass/Vol] 32.9 g/dL Normal 32-36 [facility] Comment on above: Order Comment: Order Date: 08/23/24Order Info: 0184- - CBCD Performed By: #### L 506.1000, L501.9520, L100.0100, L500.4050, L506.0400, L500.4100 ####[facility] [address] [place], [address] MCV (RBC) [Entitic vol] 91.0 fL Normal 81-[address] [facility] Comment on above: Order Comment: Order Date: 08/23/24Order Info: 018- - CBCD Performed By: #### L 506.1000, L501.9520, L100.0100, L500.4050, L506.0400, L500.4100 ####[facility] [address] [facility] [place], [address] Monocytes/100 WBC (Bld) 9.5 % Normal 0-[address] [facility] Comment on above: Order Comment: Order Date: 08/23/24Order Info: 018- - CBCD Performed By: #### L 506.1000, L501.9520, L100.0100, L500.4050, L506.0400, L500.4100 ####[facility] [address] [facility] [place], [address] Neutrophils/100 WBC (Bld) 49.1 % Normal 47-70 [facility] Comment on above: Order Comment: Order Date: 08/23/24Order Info: 0184-1 - CBCD Performed By: #### L 506.1000, L501.9520, L100.0100, L500.4050, L506.0400, L500.4100 ####[facility] [address] [place], [address] Nucleated RBC (Bld) [#/Vol] 0 10*3/uL Normal 0-5 [facility] Comment on above: Order Comment: Order Date: 08/23/24Order Info: 018- - CBCD Performed By: #### L 506.1000, L501.9520, L100.0100, L500.4050, L506.0400, L500.4100 ####[facility] [address] [place], [address] Platelet mean volume (Bld) [Entitic vol] 11.5 fL Normal 6.2-12.0 [facility] Comment on above: Order Comment: Order Date: 08/23/24Order Info: 018- - CBCD Performed By: #### L 506.1000, L501.9520, L100.0100, L500.4050, L506.0400, L500.4100 ####[facility] [address] [place], [address] Platelets (Bld) [#/Vol] 300 10*3/uL Normal 150-450 [facility] Comment on above: Order Comment: Order Date: 08/23/24Order Info: 018- - CBCD Performed By: #### L 506.1000, L501.9520, L100.0100, L500.4050, L506.0400, L500.4100 ####[facility] [address] [place], [address] RBC (Bld) [#/Vol] 4.68 10*6/uL Normal 4.2-5.4 [facility] Comment on above: Order Comment: Order Date: 08/23/24Order Info: 018-1 - CBCD Performed By: #### L 506.1000, L501.9520, L100.0100, L500.4050, L506.0400, L500.4100 ####[facility] [address] [place], [address] RDW SD 40.4 fl Normal 35.1-43.9 [facility] Comment on above: Order Comment: Order Date: 08/23/24Order Info: 0184-1 - CBCD Performed By: #### L 506.1000, L501.9520, L100.0100, L500.4050, L506.0400, L500.4100 ####[facility] [address] [place], [address] WBC (Bld) [#/Vol] 4.6 10*3/uL Normal 4.4-11.0 [facility] Comment on above: Order Comment: Order Date: 08/23/24Order Info: 0184- - CBCD Performed By: #### L 506.1000, L501.9520, L100.0100, L500.4050, L506.0400, L500.4100 ####[facility] [address] [place], [address] Comprehensive Metabolic Prof ilon 08-23-2024 Albumin [Mass/Vol] 3.5 g/dL Normal 3.2-5.0 [facility] Comment on above: Order Comment: Order Date: 08/23/24Order Info: 0786-1 - CMPOrder Info: [id number] - LIPIDOrder Info: [id number] - TSHOrder Info: 3024-7 - T4F Performed By: #### L 506.1000, L501.9520, L100.0100, L500.4050, L506.0400, L500.4100 ####[facility] [address] [place], [address] Albumin/Globulin [Mass ratio] 0.9 {ratio} Normal 0.9-2.4 [facility] Comment on above: Order Comment: Order Date: 08/23/24Order Info: 0786-1 - CMPOrder Info: [id number] - LIPIDOrder Info: 6-3 - TSHOrder Info: 4-7 - T4F Performed By: #### L 506.1000, L501.9520, L100.0100, L500.4050, L506.0400, L500.4100 ####[facility] [address] [place], [address] ALK P 71 U/L Normal 45-117 [facility] Comment on above: Order Comment: Order Date: 08/23/24Order Info: [id number] - CMPOrder Info: [id number] - LIPIDOrder Info: 3 - TSHOrder Info: 7 - T4F Performed By: #### L 506.1000, L501.9520, L100.0100, L500.4050, L506.0400, L500.4100 ####[facility] [address] [place], [address] ALT [Catalytic activity/Vol] 20 U/L Normal 13-56 [facility] Comment on above: Order Comment: Order Date: 08/23/24Order Info: 86-1 - CMPOrder Info: [id number] - LIPIDOrder Info: 3 - TSHOrder Info: 7 - T4F Performed By: #### L 506.1000, L501.9520, L100.0100, L500.4050, L506.0400, L500.4100 ####[facility] [address] [place], [address] AST [Catalytic activity/Vol] 23 U/L Normal 15-37 [facility] Comment on above: Order Comment: Order Date: 08/23/24Order Info: 0786-1 - CMPOrder Info: [id number] - LIPIDOrder Info: 3 - TSHOrder Info: [id number] - T4F Performed By: #### L 506.1000, L501.9520, L100.0100, L500.4050, L506.0400, L500.4100 ####[facility] [address] [place], [address] Bilirubin [Mass/Vol] 0.40 mg/dL Normal 0.20-1.00 [facility] Comment on above: Order Comment: Order Date: 08/23/24Order Info: 0786-1 - CMPOrder Info: [id number] - LIPIDOrder Info: [id number] - TSHOrder Info: 3024-7 - T4F Result Comment: For patients on eltrombopag therapy, use of Dimension [place] TBIL is not recommended. Performed By: #### L 506.1000, L501.9520, L100.0100, L500.4050, L506.0400, L500.4100 ####[facility] [address] [place], [address] BUN/CRE 18.3 RATIO Normal 10-20 [facility] Comment on above: Order Comment: Order Date: 08/23/24Order Info: 07 - CMPOrder Info: [id number] - LIPIDOrder Info: [id number] - TSHOrder Info: 3024-7 - T4F Performed By: #### L 506.1000, L501.9520, L100.0100, L500.4050, L506.0400, L500.4100 ####[facility] [address] [place], [address] CA,Total 9.5 mg/dL Normal 8.5-10.1 [facility] Comment on above: Order Comment: Order Date: 08/23/24Order Info: 0786 - CMPOrder Info: [id number] - LIPIDOrder Info: [id number] - TSHOrder Info: 3024-7 - T4F Performed By: #### L 506.1000, L501.9520, L100.0100, L500.4050, L506.0400, L500.4100 ####[facility] [address] [place], [address] Chloride [Moles/Vol] 107 mmol/L Normal 98-107 [facility] Comment on above: Order Comment: Order Date: 12/13/24Order Info: 86-1 - CMPOrder Info: [id number] - LIPIDOrder Info: 3 - TSHOrder Info: 3027 - T4F Performed By: #### L 506.1000, L501.9520, L100.0100, L500.4050, L506.0400, L500.4100 ####[facility] [address] [place], [address] CO2 [Moles/Vol] 25.0 mmol/L Normal 21.0-32.0 [facility] Comment on above: Order Comment: Order Date: 08/23/24Order Info: 785-1 - CMPOrder Info: [id number] - LIPIDOrder Info: [id number] - TSHOrder Info: 7 - T4F Performed By: #### L 506.1000, L501.9520, L100.0100, L500.4050, L506.0400, L500.4100 ####[facility] [address] [place], [address] Creatinine [Mass/Vol] 0.71 mg/dL Normal 0.55-1.02 [facility] Comment on above: Order Comment: Order Date: 08/23/24Order Info: 785- - CMPOrder Info: [id number] - LIPIDOrder Info: [id number] - TSHOrder Info: 7 - T4F Result Comment: The validity of the calculated GFR GFRAA in patients over 70 years has not been determined. Clinical correlation is essential. Performed By: #### L 506.1000, L501.9520, L100.0100, L500.4050, L506.0400, L500.4100 ####[facility] [address] [place], [address] EST GFR - AA 113 mL/min Normal >60 [facility] Comment on above: Order Comment: Order Date: 08/23/24Order Info: 86-1 - CMPOrder Info: [id number] - LIPIDOrder Info: [id number] - TSHOrder Info: 3027 - T4F Result Comment: Afri can Cameroonian GFR Calc Performed By: #### L 506.1000, L501.9520, L100.0100, L500.4050, L506.0400, L500.4100 ####[facility] [address] [place], [address] GAP 7 Normal 5-15 [facility] Comment on above: Order Comment: Order Date: 08/23/24Order Info: 785- - CMPOrder Info: [id number] - LIPIDOrder Info: 3 - TSHOrder Info: 7 - T4F Performed By: #### L 506.1000, L501.9520, L100.0100, L500.4050, L506.0400, L500.4100 ####[facility] [address] [place], [address] GFR/1.73 sq M.predicted among non-blacks MDRD (S/P/Bld) [Vol rate/Area] 94 mL/min/{1.73_m2} Normal >60 [facility] Comment on above: Order Comment: Order Date: 08/23/24Order Info: 785-09 - CMPOrder Info: [id number] - LIPIDOrder Info: [id number] - TSHOrder Info: 3024-03 - T4F Result Comment: Non- GFR Calc Performed By: #### L 506.1000, L501.9520, L100.0100, L500.4050, L506.0400, L500.4100 ####[facility] [address] [place], [address] Globulin (S) [Mass/Vol] 4.1 g/dL Normal 2.2-4.2 [facility] Comment on above: Order Comment: Order Date: 08/23/24Order Info: 785-1 - CMPOrder Info: [id number] - LIPIDOrder Info: 3 - TSHOrder Info: 7 - T4F Performed By: #### L 506.1000, L501.9520, L100.0100, L500.4050, L506.0400, L500.4100 ####[facility] [address] [place], [address] Glucose [Mass/Vol] 118 mg/dL High 74-106 [facility] Comment on above: Order Comment: Order Date: 08/23/24Order Info: 86-1 - CMPOrder Info: [id number] - LIPIDOrder Info: 3 - TSHOrder Info: [id number] - T4F Result Comment: Fast ing Glucose result from 100 to 125 mg/dL suggests IMP[employer]IRED HOMEOSTASIS per A.D.A. criteria. Performed By: #### L 506.1000, L501.9520, L100.0100, L500.4050, L506.0400, L500.4100 ####[facility] [address] [place], [address] Potassium [Moles/Vol] 3.7 mmol/L Normal 3.5-5.1 [facility] Comment on above: Order Comment: Order Date: 08/23/24Order Info: 785- - CMPOrder Info: - LIPIDOrder Info: [id number] - TSHOrder Info: 7 - T4F Performed By: #### L 506.1000, L501.9520, L100.0100, L500.4050, L506.0400, L500.4100 ####[facility] [address] [place], [address] Sodium [Moles/Vol] 139 mmol/L Normal 136-145 [facility] Comment on above: Order Comment: Order Date: 08/23/24Order Info: 785-1 - CMPOrder Info: [id number] - LIPIDOrder Info: [id number] - TSHOrder Info: 302-7 - T4F Performed By: #### L 506.1000, L501.9520, L100.0100, L500.4050, L506.0400, L500.4100 ####[facility] [address] [place], [address] T PROT 7.6 g/dL Normal 6.4-8.2 [facility] Comment on above: Order Comment: Order Date: 08/23/24Order Info: 07-1 - CMPOrder Info: [id number] - LIPIDOrder Info: [id number] - TSHOrder Info: 3024-7 - T4F Performed By: #### L 506.1000, L501.9520, L100.0100, L500.4050, L506.0400, L500.4100 ####[facility] [address] [place], [address] Urea nitrogen [Mass/Vol] 13 mg/dL Normal 7-18 [facility] Comment on above: Order Comment: Order Date: 08/23/24Order Info: 785-09 - CMPOrder Info: [id number] - LIPIDOrder Info: 6-3 - TSHOrder Info: 3024-7 - T4F Performed By: #### L 506.1000, L501.9520, L100.0100, L500.4050, L506.0400, L500.4100 ####[facility] [address] [place], [address] Lipid Profileon 08-23-2024 Cholesterol [Mass/Vol] 150 mg/dL Normal 200 [facility] Comment on above: Order Comment: Order Date: 08/23/24Order Info: 785-09 - CMPOrder Info: [id number] - LIPIDOrder Info: [id number] - TSHOrder Info: 3024-7 - T4F Result Comment: <200 mg/dL Desirable 200-240 mg/dL Borderline >240 mg/dL High Risk Performed By: #### L 506.1000, L501.9520, L100.0100, L500.4050, L506.0400, L500.4100 ####[facility] [address] [place], [address] Cholesterol in HDL [Mass/Vol] 39 mg/dL Low [facility] Comment on above: Order Comment: Order Date: 08/23/24Order Info: 0786-1 - CMPOrder Info: [id number] - LIPIDOrder Info: [id number] - TSHOrder Info: 7 - T4F Result Comment: The drugs N-Acetylcysteine and Metamizole may falsely depress this assay. Reference Range HDL <40 mg/dL Low HDL Cholesterol HDL >or= 60 mg/dL High HDL Cholesterol Performed By: #### L 506.1000, L501.9520, L100.0100, L500.4050, L506.0400, L500.4100 ####[facility] [address] [place], [address] Cholesterol in LDL [Mass/Vol] 73 mg/dL Normal 0-130 [facility] Comment on above: Order Comment: Order Date: 08/23/24Order Info: 785- - CMPOrder Info: [id number] - LIPIDOrder Info: [id number] - TSHOrder Info: 3024-03 - T4F Performed By: #### L 506.1000, L501.9520, L100.0100, L500.4050, L506.0400, L500.4100 ####[facility] [address] [place], [address] Cholesterol in VLDL [Mass/Vol] 38 mg/dL Normal 5-40 [facility] Comment on above: Order Comment: Order Date: 08/23/24Order Info: 785- - CMPOrder Info: [id number] - LIPIDOrder Info: [id number] - TSHOrder Info: 7 - T4F Performed By: #### L 506.1000, L501.9520, L100.0100, L500.4050, L506.0400, L500.4100 ####[facility] [address] [place], [address] Triglyceride [Mass/Vol] 192 mg/dL Normal [facility] Comment on above: Order Comment: Order Date: 08/23/24Order Info: 785- - CMPOrder Info: [id number] - LIPIDOrder Info: [id number] - TSHOrder Info: 3024-7 - T4F Result Comment: The drugs N-Acetylcysteine and Metamizole may falsely depress this assay. Serum Triglycerides Reference Interval Normal <150 mg/dL Borderline high 150 - 199 mg/dL High 200 - 499 mg/dL Very High > or = 500 mg/dL Performed By: #### L 506.1000, L501.9520, L100.0100, L500.4050, L506.0400, L500.4100 ####[facility] [address] [place], [place], [address] T4 Free Directon 08-23-2024 T4 FREE DIRECT 1.11 ng/dL Normal 0.76-1.46 [facility] Comment on above: Order Comment: Order Date: 08/23/24Order Info: 0786-1 - CMPOrder Info: [id number] - LIPIDOrder Info: 3 - TSHOrder Info: 3024-03 - T4F Performed By: #### L 506.1000, L501.9520, L100.0100, L500.4050, L506.0400, L500.4100 ####[facility] [address] [place], [place], [address] Thyroid Stim Hormone (TSH)on 08-23-2024 TSH 0.078 uIU/mL Low 0.358-3.740 [facility] Comment on above: Order Comment: Order Date: 08/23/24Order Info: 0786-1 - CMPOrder Info: [id number] - LIPIDOrder Info: 63 - TSHOrder Info: 7 - T4F Performed By: #### L 506.1000, L501.9520, L100.0100, L500.4050, L506.0400, L500.4100 ####[facility] [address] [place], [place], [address] MR/PATRICIA.BPon 08-12-2024 MR/PATRICIA.BP [address], [address] [place] [address] OFFICE VISIT Date of Service: 08/12/24 MR#: [id number] Acct: [id number] Name: JOVITA CABAN Rep #: [id number] : 1975 Provider: Dr. Elmer Irwin se, DO Age/Sex: 49/F Location: [facility] [place].BP Status: Signed Intake Vital Signs 08/15/22 09:02 08/12/24 09:58 Height 5 ft 6 in 5 ft 6 in Weight: 182 lb BMI 29.3 BP 121/78 H Blood Pressure Location Rt brachial Position Sitting Respiration 18 Pulse 86 Pulse Source Monitor BP Intake Visit Reasons: OCD/Anxiety Accompanied by: Mother Allergies No Known Allergies Allergy (Unverified 08/12/24 10:01) Medications ???Medication ???Instructions ???Recorded ???Confirmed ???Type ergocalciferol (vitamin D2) 1,250 cap PO 07/07/21 08/15/22 History mcg (50,000 unit) capsule levothyroxine 150 mcg tablet 150 mcg PO 08/15/22 08/15/22 History (Synthroid) buspirone 10 mg tablet 20 mg (2 x 10 mg) PO BID 90 days 08/12/24 08/12/24 Rx #360 tabs clonazepam 0.5 mg tablet 0.5 mg PO BID 90 days #180 tabs 08/12/24 08/12/24 Rx escitalopram oxalate 20 mg tablet 20 mg PO QDAY 90 days #90 tabs 08/12/24 08/12/24 Rx PFSH Medical History (Updated 08/12/24 @ 10:[address] Elmer Pickard DO) OCD (obsessive compulsive disorder) DIPTI (generalized anxiety disorder) Thyroid nodule greater than or equal to 1 cm in diameter incidentally noted on imaging study Chronic ITP (idiopathic thrombocytopenia) Anxiety Depression Back problem Hypothyroid Surgical History S/P wisdom tooth extraction Family History (Updated 08/15/22 @ 09:02 by Blanca Perkins) Grandmother Heart disease Hypertension Grandfather Heart disease Diabetes Cancer Father Heart disease Hypertension Aunt Diabetes Social History Smoking Status: Never smoker alcohol intake: never HPI History of Present Illness History provided by: patient HPI: Jovita Caban is a 49 year old female who presents today for new patient evaluation. Patient previously was a patient of Dr. Santi Cox. Patient admits to having a history of depression, anxiety and OCD. Does describe having low self esteem. Feels like she has had symptoms her whole life. Admits to having had intrusive thoughts of being a sexual abuser and wanting to hurt kids and these thoughts were very distressing. Could not hold children without it being a significant stress. Also has had running thoughts of people judging her. Does still have significant anxiety, however can function. Continues to be very self critical. Admits that she does try to exercise and take care of self to help with mood symptoms. Does have a strong support system with friends and siblings. 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 Has been taking guitar lessons for past 3 years. Recently would describe her mood as somewhat more anxious. Did have to go home from work because she felt like her thoughts were swirling. Does get some significant nauseous and headache when anxious. Does feel like she catastrophize. Was recently discontinued from wellbutrin by her PCP about 3 weeks to 1 month ago. 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 Currently is taking escitalopram 20 mg, buspirone 20 BID and clonazepam 0.5 mg BID. Again was taking with wellbutrin 200 mg SR in recent past. Does endorse some level of scrupolosity. Sleep: has taken Benadryl several times per week which helps, gets 4 hours of sleep Interest: does enjoy guitar, is able to find rodrigo in things Guilt: admits to feelings of worthlessness Energy: very low Concentration: worse when anxious Appetite: has gained some weight, feels like needs to lose 15 lbs Psychomotor: somewhat anxious Suicide: denies any remotely Memory: short term memory is poor Anxiety: extremely anxious Obsessions: admits to significant intrusive thoughts Compulsions: extreme distress when thinking about intrusions, checking, catastrophizing Sean: denies any symptoms of sean in the past PTSD: denies Psychosis: denies history of auditory or visual hallucinations, denies disorganized thoughts, denies disorganized speech Developmental History Developmental History: Siblings - 6 siblings, 2nd oldest Born/Raised - [employer], [employer] Living Situation - lives with parents, feels like can't live independently Legal Issues - denies Employment - currently works at [employer] in [place], has been there for 3 years Psychiatric History Previous psychiatric treatment history: Yes (no hospitalization) Previous psychiatric diagnoses: OCD, anxiety, depression Previous psychi (more content not included)... Normal [facility] Thyroidon 08-12-[address] [facility] [address] [place], [place] [address] Thyroid MR#: [id number] Acct: [id number] Name: JOVITA CABAN Rep #: [id number] : 1975 F 49 From: Ramos shine MD PCP: Dr. Rita Maher MD Status: [facility] Study: Thyroid Date of Exam: 08/12/24 Exam# [id number] Ordering Dr: Rita Maher MD [id number] STUDY: THYROID ULTRASOUND REASON FOR EXAM: Female, 49 years old. nodule TECHNIQUE: Ultrasound evaluation of the thyroid was performed with real-time and static calhoun-scale imaging. COMPARISON: Thyroid ultrasound dated August 15, 2023 FINDINGS: RIGHT LOBE: The right lobe of the thyroid gland measures 3.1 x 1.1 x 0.9 cm. There is a heterogeneous echotexture. Redemonstration of a mixed echotexture lobular nodule with hilar flow which appears to represent a lymph node. LEFT LOBE: The left lobe of the thyroid gland measures 2.2 x 0.7 x 0.6 cm. There is a heterogeneous echotexture. There are no demonstrated solid, cystic or complex lesions. Peripheral lymph node also seen at the inferior aspect of the left lobe of the thyroid gland maximally measuring 4.2 mm in diameter. ISTHMUS: The isthmus measures . The regional lymph nodes are normal. US/Thyroid IMPRESSION: 1. Sequela of chronic thyroiditis with diffusely small coarse and heterogeneous thyroid gland. No visualized malignant abnormality. 2. TR2: 2 points = not suspicious 3. If physical symptoms, abnormal thyroid values or other findings warrant further radiologic assessment repeat the study and consider nuclear medicine iodine 123 or PET/CT if there is concern for malignancy. 4. Targeted image guided biopsy of nodules of interest can also be performed with definitive pathologic assessment and diagnosis. ACR Thyroid Imaging Reporting and Data System (ACR TI-RADS) Reference: COMPOSITION (choose 1): Cystic or almost completely cystic - 0 points Spongiform- 0 points Mixed cystic and solid - 1 point Solid almost completely solid - 2 points ECHOGENICITY (choose 1): Anechoic space - 0 points Hyperechoic or isoechoic-1 point Hypoechoic-2 points Very hypoechoic-3 points SHAPE (choose 1): : Wider than tall-0 points Taller than wide-3 points MARGINS ( smooth, lobular, ill-defined) ECHOGENIC FOCI (macro or microcalcifications) Scoring and classification TR1: 0 points = benign TR2: 2 points = not suspicious TR3: 3 points = mildly suspicious TR4: 4-6 points = moderately suspicious TR5: ?7 points = highly suspicious Recommendations TR1: no FNA required TR2: no FNA required TR3: ?1.5 cm follow up, ?2.5 cm FNA = follow up: 1, 3 and 5 years TR4: ?1.0 cm follow up, ?1.5 cm FNA = follow up: 1, 2, 3 and 5 years TR5: ?0.5 cm follow up, ?1.0 cm FNA = annual follow up for up to 5 years FNA biopsy is recommended for suspicious lesions (TR3-TR5) with the above size criteria. If there are multiple nodules, the two with the highest ACR TI-RADS scores should be sampled (rather than the two largest), with largest size being used a tie-breaker if there are multiple nodules of the same classification. Electronically Signed: Ramos Godwin MD at 9:30 EST Reading Location ID and State: [address] [place] [address] , Service support , CC: Dr. Rita Maher MD Candle Molder Machine: Signed Normal [facility] CBC W Auto Differential pane l (Bld)on 05-31-2024 Basophils (Bld) [#/Vol] 0.0 10*3/uL 0.0 - 0.2 10*3/uL [facility] Basophils/100 WBC (Bld) 0.6 % 0.0 - 2.0 % [facility] Eosinophils (Bld) [#/Vol] 0.1 10*3/uL 0.0 - 0.5 10*3/uL [facility] Eosinophils/100 WBC (Bld) 1.2 % 0.0 - 6.0 % [facility] Erythrocyte distribution width (RBC) [Ratio] 12.1 % 11.5 - 15.0 % [facility] Hematocrit (Bld) [Volume fraction] 40.1 % 35.0 - 47.0 % [facility] Hemoglobin (Bld) [Mass/Vol] 13.7 g/dL 11.7 - 16.0 g/dL [facility] Immature granulocytes (Bld) [#/Vol] 0.0 10*3/uL NINF - 0.1 10*3/uL [facility] Immature granulocytes/100 WBC (Bld) 0.2 % 0.0 - 2.0 % [facility] Interpretation and review of laboratory results Normal [facility] Lymphocytes (Bld) [#/Vol] 1.8 10*3/uL 1.0 - 4.3 10*3/uL [facility] Lymphocytes/100 WBC (Bld) 34.8 % 15.0 - 45.0 % [facility] MCH (RBC) [Entitic mass] 30.7 pg 26. 0 - 34.0 pg [facility] MCHC (RBC) [Mass/Vol] 34.2 % 30.5 - 36.0 % [facility] MCV (RBC) [Entitic vol] 89.9 fL 77.0 - 99.0 fL [facility] Monocytes (Bld) [#/Vol] 0.4 10*3/uL 0.0 - 0.9 10*3/uL [facility] Monocytes/100 WBC (Bld) 8.0 % 5.0 - 13.0 % [facility] Neutrophils (Bld) [#/Vol] 2.8 10*3/uL 1.8 - 7.5 10*3/uL [facility] Neutrophils/100 WBC (Bld) 55.2 % 38.0 - 82.0 % [facility] Nucleated RBC/100 WBC (Bld) [Ratio] 0.0 % [facility] Platelet mean volume (Bld) [Entitic vol] 10.8 fL 9.0 - 12.[address] [facility] Platelets (Bld) [#/Vol] 279 10*3/uL 140 - 440 10*3/uL [facility] RBC (Bld) [#/Vol] 4.46 10*6/uL 3.80 - 5.2 0 10*6/uL [facility] WBC (Bld) [#/Vol] 5.1 10*3/uL 3.6 - 10.7 10*3/uL [facility] CBC WITH AUTO DIFFERENTIALon 05-31-2024 Basophils (Bld) [#/Vol] 0.0 10*3/uL Normal 0.0-0.2 [facility] Comment on above: Performed By: #### L [id number] #### Boat Operator: SANDRA BARRERA ([id number]) [facility] ([facility]) [address] Basophils/100 WBC (Bld) 0.6 % Normal 0.0-2.0 [facility] Comment on above: Performed By: #### L [id number] #### Boat Operator: SANDRA BARRERA ([id number]) [facility] ([facility]) [address] [place] [address] [place] Eosinophils (Bld) [#/Vol] 0.1 10*3/uL Normal 0.0-0.5 [facility] Comment on above: Performed By: #### L [id number] #### Boat Operator: SANDRA BARRERA ([id number]) [facility] ([facility]) [address] [place] [address] [place] Eosinophils/100 WBC (Bld) 1.2 % Normal 0.0-6.0 [facility] Comment on above: Performed By: #### L [id number] #### Boat Operator: SANDRA BARRERA ([id number]) [facility] ([facility]) [address] Erythrocyte distribution width (RBC) [Ratio] 12.1 % Normal 11.5-15.0 [facility] Comment on above: Performed By: #### L [id number] #### Boat Operator: SANDRA BARRERA ([id number]) [facility] ([facility] [address] Hematocrit (Bld) [Volume fraction] 40.1 % Normal 35.0-47.0 [facility] Comment on above: Performed By: #### L [id number] #### Boat Operator: SANDRA BARRERA ([id number]) [facility] ([facility]) [address] [place] [address] Hemoglobin (Bld) [Mass/Vol] 13.7 g/dL Normal 11.7-16.0 [facility] Comment on above: Performed By: #### L [id number] #### Boat Operator: SANDRA BARRERA ([id number]) [facility] ([facility]) [address] IMMATURE GRANS % 0.2 % Normal 0.0-2.0 [facility] Comment on above: Performed By: #### L [id number] #### Boat Operator: SANDRA BARRERA ([id number]) [facility] ([facility]) [address] IMMATURE GRANS ABSOLUTE 0.0 10*3/uL Normal <0.1 [facility] Comment on above: Performed By: #### L [id number] #### Boat Operator: SANDRA BARRERA ([id number]) [facility] ([facility]) [address] Lymphocytes (Bld) [#/Vol] 1.8 10*3/uL Normal 1.0-4.3 [facility] Comment on above: Performed By: #### L [id number] #### Boat Operator: SANDRA BARRERA ([id number]) [facility] ([facility]) [address] Lymphocytes/100 WBC (Bld) 34.8 % Normal 15.0-45.0 [facility] Comment on above: Performed By: #### L [id number] #### Boat Operator: SANDRA BARRERA ([id number]) [facility] ([facility]) [address] MCH (RBC) [Entitic mass] 30.7 pg Normal 26.0-34.0 [facility] Comment on above: Performed By: #### L [id number] #### Boat Operator: SANDRA BARRERA ([id number]) [facility] ([facility]) [address] MCHC 34.2 % Normal 30.5-36.0 [facility] Comment on above: Performed By: #### L [id number] #### Boat Operator: SANDRA BARRERA ([id number]) [facility] ([facility]) [address] MCV (RBC) [Entitic vol] 89.9 fL Normal 77.0-99.0 [facility] Comment on above: Performed By: #### L [id number] #### Boat Operator: SANDRA BARRERA ([id number]) [facility] ([facility]) [address] [place] [address] Monocytes (Bld) [#/Vol] 0.4 10*3/uL Normal 0.0-0.9 [facility] [facility] Comment on above: Performed By: #### L [id number] #### Boat Operator: SANDRA BARRERA ([id number]) [facility] ([facility]) [address] Monocytes/100 WBC (Bld) 8.0 % Normal 5.0-13.0 [facility] Comment on above: Performed By: #### L [id number] #### Boat Operator: SANDRA BARRERA ([phone]) [facility] ([facility] [address] NEUTROPHILS ABSOLUTE 2.8 10*3/uL Normal 1.8-7.5 [facility] Comment on above: Performed By: #### L [id number] #### Boat Operator: SANDRA BARRERA ([phone]) [facility] ([facility]) [address] Neutrophils/100 WBC (Bld) 55.2 % Normal 38.0-82.0 [facility] Comment on above: Performed By: #### L [id number] #### Boat Operator: SANDRA BARREAR ([phone]) [facility] ([facility]) [address] NRBC 0.0 /100 WBCs Normal 0.0-2.0 [facility] Comment on above: Performed By: #### L [id number] #### Boat Operator: SANDRA BARRERA ([phone]) [facility] ([facility]) [address] Platelet mean volume (Bld) [Entitic vol] 10.8 fL Normal 9.0-12.7 [facility] Comment on above: Performed By: #### L [id number] #### Boat Operator: SANDRA BARRERA ([phone]) [facility] ([facility]) [address] [place] [address] [place] Platelets (Bld) [#/Vol] 279 10*3/uL Normal 140-440 [facility] Comment on above: Performed By: #### L [id number] #### Boat Operator: SANDRA BARRERA ([id number]) [facility] ([facility]) [address] [place] [address] [place] RBC (Bld) [#/Vol] 4.46 10*6/uL Normal 3.80-5.20 [facility] Comment on above: Performed By: #### L [id number] #### Boat Operator: SANDRA BARRERA ([id number]) [facility] ([facility]) [address] WBC (Bld) [#/Vol] 5.1 10*3/uL Normal 3.6-10.7 [facility] Comment on above: Performed By: #### L [id number] #### Boat Operator: SANDRA BARRERA ([phone]) [facility] ([facility]) [address] Progress Noteon 05-31-2024 Progress Note 1005 Arrival Note Infusion Patient is here for lab draw Labs were drawn via venipuncture: site lac Pt has Itp with increased recent bleeding. 1029 Ordered treatment completed. Patient discharged without any issues. Patient has a copy of next infusion appointment and verbalizes understanding. All questions answered. Normal [facility] CBC W/Diff, Automatedon 03-11 Absolute Lymph 2.09 X10 3/uL Normal 0.83-4.51 [facility] Comment on above: Order Comment: Order Date: 03/22/24 Order Info: 0184- - CBCD Performed By: #### L 500.4100, L506.0400, L501.9520, L100.0100, L506.1000, L500.4050 #### [facility] [address] [facility] [place], [address] Absolute Neut 2.1 X10 3/uL Normal 2.0-7.7 [facility] Comment on above: Order Comment: Order Date: 03/22/24 Order Info: 018- - CBCD Performed By: #### L 500.4100, L506.0400, L501.9520, L100.0100, L506.1000, L500.4050 #### [facility] [address] [place], [address] Basophils/100 WBC (Bld) 0.4 % Normal 0-1 [facility] Comment on above: Order Comment: Order Date: 03/22/24 Order Info: 0184- - CBCD Performed By: #### L 500.4100, L506.0400, L501.9520, L100.0100, L506.1000, L500.4050 #### [facility] [address] [place], [address] Eosinophils/100 WBC (Bld) 0.6 % Normal 0-5 [facility] Comment on above: Order Comment: Order Date: 03/22/24 Order Info: 018- - CBCD Performed By: #### L 500.4100, L506.0400, L501.9520, L100.0100, L506.1000, L500.4050 #### [facility] [address] [place], [address] Erythrocyte distribution width (RBC) [Ratio] 12.1 % Normal 11.6-14.6 [facility] Comment on above: Order Comment: Order Date: 03/22/24 Order Info: 018- - CBCD Performed By: #### L 500.4100, L506.0400, L501.9520, L100.0100, L506.1000, L500.4050 #### [facility] [address] [place], [address] Hematocrit (Bld) [Volume fraction] 42.2 % Normal 37-47 [facility] Comment on above: Order Comment: Order Date: 03/22/24 Order Info: 018- - CBCD Performed By: #### L 500.4100, L506.0400, L501.9520, L100.0100, L506.1000, L500.4050 #### [facility] [address] [place], [address] Hemoglobin (Bld) [Mass/Vol] 14.3 g/dL Normal 12.0-15.0 [facility] Comment on above: Order Comment: Order Date: 03/22/24 Order Info: 018- - CBCD Performed By: #### L 500.4100, L506.0400, L501.9520, L100.0100, L506.1000, L500.4050 #### [facility] [address] [place], [address] IG% 0.200 Normal 0.0-0.9 [facility] Comment on above: Order Comment: Order Date: 03/22/24 Order Info: 0184- - CBCD Result Comment: IG% - Immature Granulocytes (promyelocytes, myelocytes and metamyelocytes) > 1% indicates that a LEFT SHIFT is Present. Performed By: #### L 500.4100, L506.0400, L501.9520, L100.0100, L506.1000, L500.4050 #### [facility] [address] [place], [address] Lymphocytes/100 WBC (Bld) 43.9 % High 19-41 [facility] Comment on above: Order Comment: Order Date: 03/22/24 Order Info: 0184 - CBCD Performed By: #### L 500.4100, L506.0400, L501.9520, L100.0100, L506.1000, L500.4050 #### [facility] [address] [place], [address] MCH (RBC) [Entitic mass] 31.4 pg Normal 27.0-32.0 [facility] Comment on above: Order Comment: Order Date: 03/22/24 Order Info: 0184- - CBCD Performed By: #### L 500.4100, L506.0400, L501.9520, L100.0100, L506.1000, L500.4050 #### [facility] [address] [place], [address] MCHC (RBC) [Mass/Vol] 33.9 g/dL Normal 32-36 [facility] Comment on above: Order Comment: Order Date: 03/22/24 Order Info: 0184- - CBCD Performed By: #### L 500.4100, L506.0400, L501.9520, L100.0100, L506.1000, L500.4050 #### [facility] [address] [place], [address] MCV (RBC) [Entitic vol] 92.7 fL Normal 81-[address] [facility] Comment on above: Order Comment: Order Date: 03/22/24 Order Info: 018- - CBCD Performed By: #### L 500.4100, L506.0400, L501.9520, L100.0100, L506.1000, L500.4050 #### [facility] [address] [place], [address] Monocytes/100 WBC (Bld) 9.9 % Normal 0-[address] [facility] Comment on above: Order Comment: Order Date: 03/22/24 Order Info: 01812-10 - CBCD Performed By: #### L 500.4100, L506.0400, L501.9520, L100.0100, L506.1000, L500.4050 #### [facility] [address] [place], [address] Neutrophils/100 WBC (Bld) 45.0 % Low 47-70 [facility] Comment on above: Order Comment: Order Date: 03/22/24 Order Info: 01812-10 - CBCD Performed By: #### L 500.4100, L506.0400, L501.9520, L100.0100, L506.1000, L500.4050 #### [facility] [address] [place], [address] Nucleated RBC (Bld) [#/Vol] 0 10*3/uL Normal 0-5 [facility] Comment on above: Order Comment: Order Date: 03/22/24 Order Info: 018- - CBCD Performed By: #### L 500.4100, L506.0400, L501.9520, L100.0100, L506.1000, L500.4050 #### [facility] [address] [place], [address] Platelet mean volume (Bld) [Entitic vol] 10.9 fL Normal 6.2-12.0 [facility] Comment on above: Order Comment: Order Date: 03/22/24 Order Info: 0184- - CBCD Performed By: #### L 500.4100, L506.0400, L501.9520, L100.0100, L506.1000, L500.4050 #### [facility] [address] [place], [address] Platelets (Bld) [#/Vol] 275 10*3/uL Normal 150-450 [facility] Comment on above: Order Comment: Order Date: 03/22/24 Order Info: 0184 - CBCD Performed By: #### L 500.4100, L506.0400, L501.9520, L100.0100, L506.1000, L500.4050 #### [facility] [address] [facility] [place], [address] RBC (Bld) [#/Vol] 4.55 10*6/uL Normal 4.2-5.4 [facility] Comment on above: Order Comment: Order Date: 03/22/24 Order Info: 0184- - CBCD Performed By: #### L 500.4100, L506.0400, L501.9520, L100.0100, L506.1000, L500.4050 #### [facility] [address] [place], [address] RDW SD 41.6 fl Normal 35.1-43.9 [facility] Comment on above: Order Comment: Order Date: 03/22/24 Order Info: 0184- - CBCD Performed By: #### L 500.4100, L506.0400, L501.9520, L100.0100, L506.1000, L500.4050 #### [facility] [address] [place], [address] WBC (Bld) [#/Vol] 4.8 10*3/uL Normal 4.4-11.0 [facility] Comment on above: Order Comment: Order Date: 03/22/24 Order Info: 0184-1 - CBCD Performed By: #### L 500.4100, L506.0400, L501.9520, L100.0100, L506.1000, L500.4050 #### [facility] [address] [place], [address] Comprehensive Metabolic Prof ilon 03-22-2024 Albumin [Mass/Vol] 3.6 g/dL Normal 3.2-5.0 [facility] Comment on above: Order Comment: Order Date: 03/22/24 Order Info: 0786-1 - CMP Order Info: [id number] - LIPID Order Info: 3015-3 - TSH Order Info: 3023-7 - T4F Performed By: #### L 500.4100, L506.0400, L501.9520, L100.0100, L506.1000, L500.4050 #### [facility] [address] [place], [address] Albumin/Globulin [Mass ratio] 0.9 {ratio} Normal 0.9-2.4 [facility] Comment on above: Order Comment: Order Date: 03/22/24 Order Info: 0786-1 - CMP Order Info: 46456-1 - LIPID Order Info: 3016-3 - TSH Order Info: 3024-7 - T4F Performed By: #### L 500.4100, L506.0400, L501.9520, L100.0100, L506.1000, L500.4050 #### [facility] [address] [place], [address] ALK P 62 U/L Normal 45-117 [facility] Comment on above: Order Comment: Order Date: 03/22/24 Order Info: 0786-1 - CMP Order Info: 72425-3 - LIPID Order Info: 3016-3 - TSH Order Info: 7 - T4F Performed By: #### L 500.4100, L506.0400, L501.9520, L100.0100, L506.1000, L500.4050 #### [facility] [address] [place], [address] ALT [Catalytic activity/Vol] 17 U/L Normal 13-56 [facility] Comment on above: Order Comment: Order Date: 03/22/24 Order Info: 86-1 - CMP Order Info: [id number] - LIPID Order Info: 3015-11 - TSH Order Info: 7 - T4F Performed By: #### L 500.4100, L506.0400, L501.9520, L100.0100, L506.1000, L500.4050 #### [facility] [address] [place], [place], [address] AST [Catalytic activity/Vol] 20 U/L Normal 15-37 [facility] Comment on above: Order Comment: Order Date: 03/22/24 Order Info: 785- - CMP Order Info: 75022-6 - LIPID Order Info: 3015-11 - TSH Order Info: 3024-03 - T4F Performed By: #### L 500.4100, L506.0400, L501.9520, L100.0100, L506.1000, L500.4050 #### [facility] [address] [place], [address] Bilirubin [Mass/Vol] 0.30 mg/dL Normal 0.20-1.00 [facility] Comment on above: Order Comment: Order Date: 03/22/24 Order Info: 86-1 - CMP Order Info: 65927-5 - LIPID Order Info: 3 - TSH Order Info: 3024-7 - T4F Result Comment: For patients on eltrombopag therapy, use of Dimension [place] TBIL is not recommended. Performed By: #### L 500.4100, L506.0400, L501.9520, L100.0100, L506.1000, L500.4050 #### [facility] [address] [place], [address] BUN/CRE 15.2 RATIO Normal 10-20 [facility] Comment on above: Order Comment: Order Date: 03/22/24 Order Info: 86-1 - CMP Order Info: [id number] - LIPID Order Info: 3016-3 - TSH Order Info: 3024-7 - T4F Performed By: #### L 500.4100, L506.0400, L501.9520, L100.0100, L506.1000, L500.4050 #### [facility] [address] [place], [address] CA,Total 9.2 mg/dL Normal 8.5-10.1 [facility] Comment on above: Order Comment: Order Date: 03/22/24 Order Info: 785-1 - CMP Order Info: [id number] - LIPID Order Info: 301-3 - TSH Order Info: 3024-7 - T4F Performed By: #### L 500.4100, L506.0400, L501.9520, L100.0100, L506.1000, L500.4050 #### [facility] [address] [place], [address] Chloride [Moles/Vol] 108 mmol/L High 98-107 [facility] Comment on above: Order Comment: Order Date: 03/22/24 Order Info: 86-1 - CMP Order Info: [id number] - LIPID Order Info: 3016-3 - TSH Order Info: 3024-7 - T4F Performed By: #### L 500.4100, L506.0400, L501.9520, L100.0100, L506.1000, L500.4050 #### [facility] [address] [place], [address] CO2 [Moles/Vol] 24.0 mmol/L Normal 21.0-32.0 [facility] Comment on above: Order Comment: Order Date: 03/22/24 Order Info: 785- - CMP Order Info: - LIPID Order Info: 3015-11 - TSH Order Info: 3024-03 - T4F Performed By: #### L 500.4100, L506.0400, L501.9520, L100.0100, L506.1000, L500.4050 #### [facility] [address] [place], [address] Creatinine [Mass/Vol] 0.72 mg/dL Normal 0.55-1.02 [facility] Comment on above: Order Comment: Order Date: 03/22/24 Order Info: 785-09 - CMP Order Info: - LIPID Order Info: 3015-11 - TSH Order Info: 7 - T4F Result Comment: The validity of the calculated GFR GFRAA in patients over 70 years has not been determined. Clinical correlation is essential. Performed By: #### L 500.4100, L506.0400, L501.9520, L100.0100, L506.1000, L500.4050 #### [facility] [address] [place], [place], [id number] EST GFR - AA 111 mL/min Normal >60 [facility] Comment on above: Order Comment: Order Date: 03/22/24 Order Info: 785-09 - CMP Order Info: - LIPID Order Info: 3015-11 - TSH Order Info: 7 - T4F Result Comment: Afri can [place]onian GFR Calc Performed By: #### L 500.4100, L506.0400, L501.9520, L100.0100, L506.1000, L500.4050 #### [facility] [address] [place], [address] GAP 5 Normal 5-15 [facility] Comment on above: Order Comment: Order Date: 03/22/24 Order Info: 785-09 - CMP Order Info: - LIPID Order Info: 3015-11 - TSH Order Info: 3024-03 - T4F Performed By: #### L 500.4100, L506.0400, L501.9520, L100.0100, L506.1000, L500.4050 #### [facility] [address] [place], [address] GFR/1.73 sq M.predicted among non-blacks MDRD (S/P/Bld) [Vol rate/Area] 92 mL/min/{1.73_m2} Normal >60 [facility] Comment on above: Order Comment: Order Date: 03/22/24 Order Info: 785-09 - CMP Order Info: - LIPID Order Info: 3015-11 - TSH Order Info: 3024-03 - T4F Result Comment: Non- GFR Calc Performed By: #### L 500.4100, L506.0400, L501.9520, L100.0100, L506.1000, L500.4050 #### [facility] [address] [place], [address] Globulin (S) [Mass/Vol] 3.8 g/dL Normal 2.2-4.[address] [facility] Comment on above: Order Comment: Order Date: 03/22/24 Order Info: 785-09 - CMP Order Info: - LIPID Order Info: 3015-11 - TSH Order Info: 3024-03 - T4F Performed By: #### L 500.4100, L506.0400, L501.9520, L100.0100, L506.1000, L500.4050 #### [facility] [address] [place], [address] Glucose [Mass/Vol] 91 mg/dL Normal 74-106 [facility] Comment on above: Order Comment: Order Date: 03/22/24 Order Info: 785-09 - CMP Order Info: - LIPID Order Info: 3015-11 - TSH Order Info: 3024-03 - T4F Performed By: #### L 500.4100, L506.0400, L501.9520, L100.0100, L506.1000, L500.4050 #### [facility] [address] [place], [address] Potassium [Moles/Vol] 4.1 mmol/L Normal 3.5-5.1 [facility] Comment on above: Order Comment: Order Date: 03/22/24 Order Info: 86-1 - CMP Order Info: [id number] - LIPID Order Info: 3016-3 - TSH Order Info: 3024-7 - T4F Performed By: #### L 500.4100, L506.0400, L501.9520, L100.0100, L506.1000, L500.4050 #### [facility] [address] [place], [address] Sodium [Moles/Vol] 137 mmol/L Normal 136-145 [facility] Comment on above: Order Comment: Order Date: 03/22/24 Order Info: 785-09 - CMP Order Info: [id number] - LIPID Order Info: 63 - TSH Order Info: 3024-7 - T4F Performed By: #### L 500.4100, L506.0400, L501.9520, L100.0100, L506.1000, L500.4050 #### [facility] [address] [place], [address] T PROT 7.4 g/dL Normal 6.4-8.2 [facility] Comment on above: Order Comment: Order Date: 03/22/24 Order Info: 785-1 - CMP Order Info: [id number] - LIPID Order Info: 3016-3 - TSH Order Info: 3024-7 - T4F Performed By: #### L 500.4100, L506.0400, L501.9520, L100.0100, L506.1000, L500.4050 #### [facility] [address] [place], [address] Urea nitrogen [Mass/Vol] 11 mg/dL Normal 7-18 [facility] Comment on above: Order Comment: Order Date: 03/22/24 Order Info: 785-09 - CMP Order Info: - LIPID Order Info: 3015-11 - TSH Order Info: 3024-03 T4F Performed By: #### L 500.4100, L506.0400, L501.9520, L100.0100, L506.1000, L500.4050 #### [facility] [address] [place], [address] Lipid Profileon 03-22-2024 Cholesterol [Mass/Vol] 151 mg/dL Normal 200 [facility] Comment on above: Order Comment: Order Date: 03/22/24 Order Info: 785-09 - CMP Order Info: - LIPID Order Info: 3015-11 - TSH Order Info: 3024-03 T4F Result Comment: <200 mg/dL Desirable 200-240 mg/dL Borderline >240 mg/dL High Risk Performed By: #### L 500.4100, L506.0400, L501.9520, L100.0100, L506.1000, L500.4050 #### [facility] [address] [place], [address] Cholesterol in HDL [Mass/Vol] 35 mg/dL Low [facility] Comment on above: Order Comment: Order Date: 03/22/24 Order Info: 785-09 - CMP Order Info: [id number] - LIPID Order Info: 3015-11 - TSH Order Info: 3024-03 - T4F Result Comment: The drugs N-Acetylcysteine and Metamizole may falsely depress this assay. Reference Range HDL <40 mg/dL Low HDL Cholesterol HDL >or= 60 mg/dL High HDL Cholesterol Performed By: #### L 500.4100, L506.0400, L501.9520, L100.0100, L506.1000, L500.4050 #### [facility] [address] [place], [address] Cholesterol in LDL [Mass/Vol] 80 mg/dL Normal 0-130 [facility] Comment on above: Order Comment: Order Date: 03/22/24 Order Info: 785-09 - CMP Order Info: - LIPID Order Info: 3 - TSH Order Info: 7 - T4F Performed By: #### L 500.4100, L506.0400, L501.9520, L100.0100, L506.1000, L500.4050 #### [facility] [address] [place], [address] Cholesterol in VLDL [Mass/Vol] 36 mg/dL Normal 5-40 [facility] Comment on above: Order Comment: Order Date: 03/22/24 Order Info: 785-09 - CMP Order Info: - LIPID Order Info: 3 - TSH Order Info: 3024-03 - T4F Performed By: #### L 500.4100, L506.0400, L501.9520, L100.0100, L506.1000, L500.4050 #### [facility] [address] [place], [address] Triglyceride [Mass/Vol] 181 mg/dL Normal [facility] Comment on above: Order Comment: Order Date: 03/22/24 Order Info: 785-09 - CMP Order Info: - LIPID Order Info: 3 - TSH Order Info: 3024-03 - T4F Result Comment: The drugs N-Acetylcysteine and Metamizole may falsely depress this assay. Serum Triglycerides Reference Interval Normal <150 mg/dL Borderline high 150 - 199 mg/dL High 200 - 499 mg/dL Very High > or = 500 mg/dL Performed By: #### L 500.4100, L506.0400, L501.9520, L100.0100, L506.1000, L500.4050 #### [facility] [address] [place], [address] T4 Free Directon 03-22-2024 T4 FREE DIRECT 1.11 ng/dL Normal 0.76-1.46 [facility] Comment on above: Order Comment: Order Date: 03/22/24Order Info: 0786-1 - CMPOrder Info: [id number] - LIPIDOrder Info: [id number] - TSHOrder Info: 3024-7 - T4F Performed By: #### L 500.4100, L506.0400, L501.9520, L100.0100, L506.1000, L500.4050 ####[facility] [address] [place], [address] Thyroid Stim Hormone (TSH)on 03-22-2024 TSH 0.09 uIU/mL Low 0.358-3.74 [facility] Comment on above: Order Comment: Order Date: 03/22/24Order Info: 0786- - CMPOrder Info: [id number] - LIPIDOrder Info: 6-3 - TSHOrder Info: 7 - T4F Performed By: #### L 500.4100, L506.0400, L501.9520, L100.0100, L506.1000, L500.4050 ####[facility] [address] [place], [address] Vitamin D,25 Hydroxyon 03-22 Vitamin D 25-OH 31.7 ng/mL Normal [facility] Comment on above: Order Comment: Order Date: 03/22/24 Order Info: [id number] - VITD25 Result Comment: Clotilde min D 25(OH) Status Range Deficiency <20 ng/mL (50nmol/L) Insufficiency 20 - 30 ng/mL (50 - 75 nmol/L) Sufficiency 30 - 100 ng/mL (75 - 250 nmol/L) Toxicity >100 ng/mL (>250 nmol/L) Performed By: #### L 500.4100, L506.0400, L501.9520, L100.0100, L506.1000, L500.4050 #### [facility] [address] [place], [address] Erythrocyte sedimentation ra teOrdered By: Rita Maher on 12-22-2023 ESR (Bld) [Velocity] 14 mm/h 0-30 [facility] - Chemistry and C hemistry - challengeOrdered By: Rita Maher on 12-22-2023 CK [Catalytic activity/Vol] 55 U/L 26-192 [facility] Magnesium [Mass/Vol] 2.0 mg/dL 1.6-2.6 [facility] Absolute lymphocyte countOrd ered By: Rita Maher on 11-30-2023 Lymphocytes Auto (Unsp spec) [#/Vol] 2.02 10*3/uL 0.83-4.51 [facility] Automated lymphocyte count a s percentage of total leukocytesOrdered By: Rita Maher on 11-30-2023 Lymphocytes/100 WBC Auto (Unsp spec) 38.2 % 19-41 [facility] Basophil percentageOrdered B y: Rita Maher on 11-30-2023 Basophil percentage 0 SEEN /hpf 0-5 [facility] Basophils/100 WBC (Bld) 0.6 % 0-1 [facility] Bilirubin [Mass/Vol] 0.30 mg/dL 0.20-1.00 [facility] Comment on above: For patients on eltr ombopag therapy, use of Dimension [place] TBIL is not recommended. Chloride [Moles/Vol] 110 mmol/L 98-107 [facility] Cholesterol [Mass/Vol] 158 mg/dL <200 [facility] Comment on above: <200 mg/dL Desirable 200-240 mg/dL Borderline >240 mg/dL High Risk Eosinophils/100 WBC (Bld) 0.9 % 0-5 [facility] Glucose [Mass/Vol] 96 mg/dL 74-106 [facility] Hemoglobin (Bld) [Mass/Vol] 13.8 g/dL 12.0-15.0 [facility] Monocytes/100 WBC (Bld) 10.4 % 0-[address] [facility] Neutrophils (Bld) [#/Vol] 2.6 10*3/uL 2.0-7.7 [facility] Neutrophils/100 WBC (Bld) 49.7 % 47-70 [facility] Potassium [Moles/Vol] 3.6 mmol/L 3.5-5.1 [facility] Protein [Mass/Vol] 7.5 g/dL 6.4-8.2 [facility] Sodium [Moles/Vol] 140 mmol/L 136-145 [facility] Triglyceride [Mass/Vol] 265 mg/dL <199 [facility] Comment on above: The drugs N-Acetylcy steine and Metamizole may falsely depress this assay.Serum Triglycerides Reference Interval Normal <150 mg/dL Borderline high 150 - 199 mg/dL High 200 - 499 mg/dL Very High > or = 500 mg/dL WBC (Bld) [#/Vol] 5.3 10*3/uL 4.4-11.0 [facility] Bilirubin Test strip Ql (U)O rdered By: Rita Maher on 11-30-2023 Bilirubin Ql (U) Negative Negative [facility] Determination of erythrocyte mean corpuscular volume (MCV)Ordered By: Rita Maher on 11-30-2023 MCV (RBC) [Entitic vol] 92.8 fL 81-99 [facility] Erythrocyte distribution wid th ratioOrdered By: Rita Maher on 11-30-2023 Erythrocyte distribution width (RBC) [Ratio] 12.2 % 11.6-14.6 [facility] Erythrocyte distribution wid th standard deviationOrdered By: Rita Maher on 11-30-2023 Erythrocyte distribution width (RBC) [Entitic vol] 41.6 fL 35.1-43.9 [facility] Hematocrit Auto (Bld) [Volum e fraction]Ordered By: Rita Maher on 11-30-2023 Hematocrit (Bld) [Volume fraction] 41.0 % 37-47 [facility] Immature granulocytes/100 WB C Auto (Bld)Ordered By: Rita Maher on 11-30-2023 Immature granulocytes/100 WBC (Bld) 0.200 % 0.0-0.9 [facility] Comment on above: IG% - Immature Granu locytes (promyelocytes, myelocytes and metamyelocytes) > 1% indicates that a LEFT SHIFT is Present. Ketones Test strip Ql (U)Ord ered By: Rita Maher on 11-30-2023 Ketones Ql (U) Negative Negative [facility] - Chemistry and C hemistry - challengeOrdered By: Rita Maher on 11-30-2023 Albumin/Globulin [Mass ratio] 0.8 {ratio} 0.9-2.4 [facility] ALP [Catalytic activity/Vol] 73 U/L 45-117 [facility] ALT [Catalytic activity/Vol] 19 U/L 13-56 [facility] Cholesterol in HDL [Mass/Vol] 31 mg/dL >40 [facility] Comment on above: The drugs N-Acetylcy steine and Metamizole may falsely depress this assay. Reference Range HDL <40 mg/dL Low HDL Cholesterol HDL >or= 60 mg/dL High HDL Cholesterol Cholesterol in LDL [Mass/Vol] 74 mg/dL 0-130 [facility] CO2 [Moles/Vol] 24.0 mmol/L 21.0-32.0 [facility] Globulin (S) [Mass/Vol] 4.1 g/dL 2.2-4.2 [facility] Urea nitrogen/Creatinine [Mass ratio] 14.6 mg/mg 10-20 [facility] - Hematology and Cell countsOrdered By: Rita Maher on 11-30-2023 MCH (RBC) [Entitic mass] 31.2 pg 27.0-32.0 [facility] MCHC (RBC) [Mass/Vol] 33.7 g/dL 32-36 [facility] Nucleated RBC/100 WBC (Bld) [Ratio] 0 % 0-5 [facility] Platelet mean volume (Bld) [Entitic vol] 10.6 fL 6.2-12.0 [facility] Platelets (Bld) [#/Vol] 255 10*3/uL 150-450 [facility] Mucus LM Ql (Urine sed)Order ed By: Rita Maher on 11-30-2023 Mucus Ql (Urine sed) 0 SEEN /hpf [facility] Nitrite Test strip Ql (U)Ord ered By: Rita Maher on 11-30-2023 Nitrite Ql (U) Negative Negative [facility] No Panel InformationOrdered By: Rita Maher on 11-30-2023 Estimated GFR (MDRD) Amer 106 mL/min >60 [facility] Comment on above: GFR Calc Estimated GFR (MDRD) Non-Af Amer 88 mL/min >60 [facility] Comment on above: Non- GFR Calc Urine RBC 0 SEEN /hpf 0-5 [facility] Vitamin D 25-Hydroxy 34.4 ng/mL [facility] Comment on above: Vitamin D 25(OH) Sta tus Range Deficiency <20 ng/mL (50nmol/L) Insufficiency 20 - 30 ng/mL (50 - 75 nmol/L) Sufficiency 30 - 100 ng/mL (75 - 250 nmol/L) Toxicity >100 ng/mL (>250 nmol/L) VLDL Cholesterol 53 mg/dL 5-40 [facility] Protein Test strip Ql (U)Ord ered By: Rita Maher on 11-30-2023 Protein Ql (U) Negative Negative [facility] RBC Auto (Bld) [#/Vol]Ordere d By: Rita Maher on 11-30-2023 RBC (Bld) [#/Vol] 4.42 10*6/uL 4.2-5.4 [facility] Serum or plasma calcium catarino urement (mass/volume)Ordered By: Rita Maher on 11-30-2023 Calcium [Mass/Vol] 8.9 mg/dL 8.5-10.1 [facility] Serum or plasma creatinine m easurement (mass/volume)Ordered By: Rita Maher on 11-30-2023 Creatinine [Mass/Vol] 0.76 mg/dL 0.55-1.02 [facility] Comment on above: The validity of the calculated GFR & GFRAA in patients over 70 years has not been determined. Clinical correlation is essential. Serum or plasma thyroid stim ulating hormone (TSH) measurement (units/volume)Ordered By: Rita Maher on 11-30-2023 TSH Qn 0.82 uIU/mL 0.358-3.74 [facility] Serum or plasma urea nitroge n measurement (mass/volume)Ordered By: Rita Maher on 11-30-2023 Urea nitrogen [Mass/Vol] 11 mg/dL 7-18 [facility] Squamous epithelial cells de tection in urine sediment by light microscopyOrdered By: Rita Maher on 11-30-2023 Epithelial cells.squamous LM Ql (Urine sed) 0-5 SEEN /hpf 5-10 [facility] Thin prep Papanicolaou smear with manual screeningOrdered By: Rita Maher on 11-30-2023 Thin prep Papanicolaou smear with manual screening 3.4 g/dL 3.2-5.0 [facility] Thin prep Papanicolaou smear with manual screening 22 U/L 15-37 [facility] Thin prep Papanicolaou smear with manual screening 6 5-15 [facility] Thin prep Papanicolaou smear with manual screening 1.07 ng/dL 0.76-1.46 [facility] Urine blood detectionOrdered By: Rita Maher on 11-30-2023 RBC Ql (U) Negative Negative [facility] Urine clarityOrdered By: Kwesi Maher on 11-30-2023 Clarity (U) Clear Clear [facility] Urine color determinationOrd ered By: Rita Maher on 11-30-2023 Color (U) Yellow Yellow [facility] Urine glucose detectionOrder ed By: Rita Maher on 11-30-2023 Glucose Ql (U) Normal mg/dl Normal [facility] Urine leukocyte esterase det ection by dipstickOrdered By: Rita Maher on 11-30-2023 Leukocyte esterase Test strip Ql (U) Negative Negative [facility] Urine pHOrdered By: Rita unger on 11-30-2023 pH (U) 6.0 [pH] 5.0 - 8.0 [facility] Urine sediment bacteria coun t by microscopy (number/high power field)Ordered By: Rita Maher on 11-30-2023 Bacteria LM.HPF (Urine sed) [#/Area] RARE /hpf None Seen [facility] Urine specific gravity measu rementOrdered By: Rita Maher on 11-30-2023 Specific gravity (U) [Rel density] 1.010 1.002-1.030 [facility] Urine urobilinogen measureme ntOrdered By: Rita Maher on 11-30-2023 Urobilinogen Ql (U) Normal mg/dl Normal [facility] Whole blood hemoglobin A1c/t otal hemoglobin ratio (mass fraction)Ordered By: Rita Maher on 06-16-2023 HbA1c (Bld) [Mass fraction] 5.0 % 3.8-5.6 [facility] Comment on above: Normal < 5.7 % Predi abetic 5.7 - 6.4 % Diabetic >or= 6.5 % Please note range changes. Absolute lymphocyte countOrd ered By: Rita Maher on 06-06-2023 Lymphocytes Auto (Unsp spec) [#/Vol] 2.02 10*3/uL 0.83-4.51 [facility] Basophil percentageOrdered B y: Rita Maher on 06-06-2023 Basophils/100 WBC (Bld) 0.9 % 0-1 [facility] Bilirubin [Mass/Vol] 0.30 mg/dL 0.20-1.00 [facility] Comment on above: For patients on eltr ombopag therapy, use of Dimension [place] TBIL is not recommended. Chloride [Moles/Vol] 109 mmol/L 98-107 [facility] Eosinophils/100 WBC (Bld) 0.9 % 0-5 [facility] Glucose [Mass/Vol] 118 mg/dL 74-106 [facility] Comment on above: Fasting Glucose resu lt from 100 to 125 mg/dL suggests IMPAIRED HOMEOSTASIS per A.D.A. criteria. Neutrophils (Bld) [#/Vol] 2.1 10*3/uL 2.0-7.7 [facility] Neutrophils/100 WBC (Bld) 44.7 % 47-70 [facility] Potassium [Moles/Vol] 3.8 mmol/L 3.5-5.1 [facility] Protein [Mass/Vol] 7.4 g/dL 6.4-8.2 [facility] Sodium [Moles/Vol] 140 mmol/L 136-145 [facility] WBC (Bld) [#/Vol] 4.7 10*3/uL 4.4-11.0 [facility] Blood erythrocytes count (nu mber/volume)Ordered By: Rita Maher on 06-06-2023 RBC (Bld) [#/Vol] 4.41 10*6/uL 4.2-5.4 [facility] Blood hemoglobin measurement (mass/volume)Ordered By: Rita Maher on 06-06-2023 Hemoglobin (Bld) [Mass/Vol] 13.4 g/dL 12.0-15.0 [facility] Blood lymphocytes/100 leukoc ytesOrdered By: Rita Maher on 06-06-2023 Lymphocytes/100 WBC (Bld) 43.2 % 19-41 [facility] Blood monocytes/100 leukocyt esOrdered By: Rita Maher on 06-06-2023 Monocytes/100 WBC (Bld) 9.0 % 0-10 [facility] Blood platelet mean volumeOr dered By: Rita Maher on 06-06-2023 Platelet mean volume (Bld) [Entitic vol] 11.3 fL 6.2-12.0 [facility] Determination of erythrocyte mean corpuscular volume (MCV)Ordered By: Rita Maher on 06-06-2023 MCV (RBC) [Entitic vol] 93.9 fL 81-99 [facility] Hematocrit Auto (Bld) [Volum e fraction]Ordered By: Rita aMher on 06-06-2023 Hematocrit (Bld) [Volume fraction] 41.4 % 37-47 [facility] - Chemistry and C hemistry - challengeOrdered By: Rita Maher on 06-06-2023 ALP [Catalytic activity/Vol] 77 U/L 45-117 [facility] ALT [Catalytic activity/Vol] 21 U/L 13-56 [facility] CO2 [Moles/Vol] 25.0 mmol/L 21.0-32.0 [facility] Free T4 [Mass/Vol] 0.91 ng/dL 0.76-1.46 [facility] Globulin (S) [Mass/Vol] 4.1 g/dL 2.2-4.2 [facility] Urea nitrogen/Creatinine [Mass ratio] 18.0 mg/mg 10-20 [facility] - Hematology and Cell countsOrdered By: Rita Maher on 06-06-2023 Erythrocyte distribution width (RBC) [Entitic vol] 42.6 fL 35.1-43.9 [facility] Erythrocyte distribution width (RBC) [Ratio] 12.2 % 11.6-14.6 [facility] Immature granulocytes/100 WBC (Bld) 1.300 % 0.0-0.9 [facility] Comment on above: IG% - Immature Granu locytes (promyelocytes, myelocytes and metamyelocytes) > 1% indicates that a LEFT SHIFT is Present. MCH (RBC) [Entitic mass] 30.4 pg 27.0-32.0 [facility] Nucleated RBC/100 WBC (Bld) [Ratio] 0 % 0-5 [facility] MCHC Auto (RBC) [Mass/Vol]Or dered By: Rita Maher on 06-06-2023 MCHC (RBC) [Mass/Vol] 32.4 g/dL 32-36 [facility] No Panel InformationOrdered By: Rita Maher on 06-06-2023 Estimated GFR (MDRD) Amer 112 mL/min >60 [facility] Comment on above: GFR Calc Estimated GFR (MDRD) Non-Af Amer 93 mL/min >60 [facility] Comment on above: Non- GFR Calc Thyroid Stimulating Hormone (TSH) 0.31 uIU/mL 0.358-3.74 [facility] Vitamin D 25-Hydroxy 33.6 ng/mL [facility] Comment on above: Vitamin D 25(OH) Sta tus Range Deficiency <20 ng/mL (50nmol/L) Insufficiency 20 - 30 ng/mL (50 - 75 nmol/L) Sufficiency 30 - 100 ng/mL (75 - 250 nmol/L) Toxicity >100 ng/mL (>250 nmol/L) Platelets bldOrdered By: Kwesi Maher on 06-06-2023 Platelets (Bld) [#/Vol] 281 10*3/uL 150-450 [facility] Serum or plasma albumin catarino urement (mass/volume)Ordered By: Rita Maher on 06-06-2023 Albumin [Mass/Vol] 3.3 g/dL 3.2-5.0 [facility] Serum or plasma albumin/glob ulin mass ratioOrdered By: Rita Maher on 06-06-2023 Albumin/Globulin [Mass ratio] 0.8 {ratio} 0.9-2.4 [facility] Serum or plasma calcium catarino urement (mass/volume)Ordered By: Rita Maher on 06-06-2023 Calcium [Mass/Vol] 8.8 mg/dL 8.5-10.1 [facility] Serum or plasma creatinine m easurement (mass/volume)Ordered By: Rita Maher on 06-06-2023 Creatinine [Mass/Vol] 0.72 mg/dL 0.55-1.02 [facility] Comment on above: The validity of the calculated GFR & GFRAA in patients over 70 years has not been determined. Clinical correlation is essential. Serum or plasma urea nitroge n measurement (mass/volume)Ordered By: Rita Maher on 06-06-2023 Urea nitrogen [Mass/Vol] 13 mg/dL 7-18 [facility] Thin prep Papanicolaou smear with manual screeningOrdered By: Rita Maher on 06-06-2023 Thin prep Papanicolaou smear with manual screening 19 U/L 15-37 [facility] Thin prep Papanicolaou smear with manual screening 6 5-15 [facility] Whole blood hemoglobin A1c/t otal hemoglobin ratio (mass fraction)Ordered By: Rita Maher on 06-06-2023 HbA1c (Bld) [Mass fraction] 5.0 % 3.8-5.6 [facility] Comment on above: Normal < 5.7 % Predi abetic 5.7 - 6.4 % Diabetic >or= 6.5 % Please note range changes. Absolute lymphocyte countOrd ered By: Dr. Maher on 12-01-2022 Lymphocytes Auto (Unsp spec) [#/Vol] 2.25 10*3/uL 0.83-4.51 [facility] Basophil percentageOrdered B y: Dr. Maher on 12-01-2022 Basophils/100 WBC (Bld) 0.4 % 0-1 [facility] Bilirubin [Mass/Vol] 0.30 mg/dL 0.20-1.00 [facility] Comment on above: For patients on eltr ombopag therapy, use of Dim[place] TBIL is not recommended. Chloride [Moles/Vol] 105 mmol/L 98-107 [facility] Eosinophils/100 WBC (Bld) 0.8 % 0-5 [facility] Glucose [Mass/Vol] 103 mg/dL 74-106 [facility] Comment on above: Fasting Glucose resu lt from 100 to 125 mg/dL suggests IMPAIRED HOMEOSTASIS per A.D.A. criteria. Neutrophils (Bld) [#/Vol] 2.5 10*3/uL 2.0-7.7 [facility] Neutrophils/100 WBC (Bld) 46.4 % 47-70 [facility] Potassium [Moles/Vol] 3.7 mmol/L 3.5-5.1 [facility] Comment on above: Slight Hemolysis, Re sult may be falsely increased. Protein [Mass/Vol] 7.6 g/dL 6.4-8.2 [facility] Sodium [Moles/Vol] 139 mmol/L 136-145 [facility] WBC (Bld) [#/Vol] 5.3 10*3/uL 4.4-11.0 [facility] Blood erythrocytes count (nu mber/volume)Ordered By: Dr. Maher on 12-01-2022 RBC (Bld) [#/Vol] 4.43 10*6/uL 4.2-5.4 [facility] Blood hemoglobin measurement (mass/volume)Ordered By: Dr. Maher on 12-01-2022 Hemoglobin (Bld) [Mass/Vol] 13.7 g/dL 12.0-15.0 [facility] Blood lymphocytes/100 leukoc ytesOrdered By: Dr. Maher on 12-01-2022 Lymphocytes/100 WBC (Bld) 42.4 % 19-41 [facility] Blood monocytes/100 leukocyt esOrdered By: Dr. Maher on 12-01-2022 Monocytes/100 WBC (Bld) 10.0 % 0-10 [facility] Blood platelet mean volumeOr dered By: Dr. Maher on 12-01-2022 Platelet mean volume (Bld) [Entitic vol] 10.8 fL 6.2-12.0 [facility] Determination of erythrocyte mean corpuscular volume (MCV)Ordered By: Dr. Maher on 12-01-2022 MCV (RBC) [Entitic vol] 91.6 fL 81-99 [facility] Hematocrit Auto (Bld) [Volum e fraction]Ordered By: Dr. Maher on 12-01-2022 Hematocrit (Bld) [Volume fraction] 40.6 % 37-47 [facility] - Chemistry and C hemistry - challengeOrdered By: Dr. Maher on 12-01-2022 ALP [Catalytic activity/Vol] 69 U/L 45-117 [facility] ALT [Catalytic activity/Vol] 19 U/L 13-56 [facility] CO2 [Moles/Vol] 25.0 mmol/L 21.0-32.0 [facility] Free T4 [Mass/Vol] 1.07 ng/dL 0.76-1.46 [facility] Globulin (S) [Mass/Vol] 4.1 g/dL 2.2-4.2 [facility] Urea nitrogen/Creatinine [Mass ratio] 16.4 mg/mg 10-20 [facility] - Hematology and Cell countsOrdered By: Dr. Maher on 12-01-2022 Erythrocyte distribution width (RBC) [Entitic vol] 41.7 fL 35.1-43.9 [facility] Erythrocyte distribution width (RBC) [Ratio] 12.3 % 11.6-14.6 [facility] Immature granulocytes/100 WBC (Bld) 0.000 % 0.0-0.9 [facility] Comment on above: IG% - Immature Granu locytes (promyelocytes, myelocytes and metamyelocytes) > 1% indicates that a LEFT SHIFT is Present. MCH (RBC) [Entitic mass] 30.9 pg 27.0-32.0 [facility] Nucleated RBC/100 WBC (Bld) [Ratio] 0 % 0-5 [facility] MCHC Auto (RBC) [Mass/Vol]Or dered By: Dr. Maher on 12-01-2022 MCHC (RBC) [Mass/Vol] 33.7 g/dL 32-36 [facility] No Panel InformationOrdered By: Dr. Maher on 12-01-2022 Estimated GFR (MDRD) Amer 122 mL/min >60 [facility] Comment on above: GFR Calc Estimated GFR (MDRD) Non-Af Amer 101 mL/min >60 [facility] Comment on above: Non- GFR Calc Thyroid Stimulating Hormone (TSH) 0.08 uIU/mL 0.358-3.74 [facility] Vitamin D 25-Hydroxy 70.8 ng/mL [facility] Comment on above: Vitamin D 25(OH) Sta tus Range Deficiency <20 ng/mL (50nmol/L) Insufficiency 20 - 30 ng/mL (50 - 75 nmol/L) Sufficiency 30 - 100 ng/mL (75 - 250 nmol/L) Toxicity >100 ng/mL (>250 nmol/L) Platelets bldOrdered By: Dr. Maher on 12-01-2022 Platelets (Bld) [#/Vol] 316 10*3/uL 150-450 [facility] Serum or plasma albumin catarino urement (mass/volume)Ordered By: Dr. Maher on 12-01-2022 Albumin [Mass/Vol] 3.5 g/dL 3.2-5.0 [facility] Serum or plasma albumin/glob ulin mass ratioOrdered By: Dr. Maher on 12-01-2022 Albumin/Globulin [Mass ratio] 0.9 {ratio} 0.9-2.4 [facility] Serum or plasma calcium catarino urement (mass/volume)Ordered By: Dr. Maher on 12-01-2022 Calcium [Mass/Vol] 9.1 mg/dL 8.5-10.1 [facility] Serum or plasma creatinine m easurement (mass/volume)Ordered By: Dr. Maher on 12-01-2022 Creatinine [Mass/Vol] 0.67 mg/dL 0.55-1.02 [facility] Comment on above: The validity of the calculated GFR & GFRAA in patients over 70 years has not been determined. Clinical correlation is essential. Serum or plasma urea nitroge n measurement (mass/volume)Ordered By: Dr. Maher on 12-01-2022 Urea nitrogen [Mass/Vol] 11 mg/dL 7-18 [facility] Thin prep Papanicolaou smear with manual screeningOrdered By: Dr. Maher on 12-01-2022 Thin prep Papanicolaou smear with manual screening 16 U/L 15-37 [facility] Comment on above: Slight Hemolysis, Re sult may be falsely increased. Thin prep Papanicolaou smear with manual screening 9 5-15 [facility] No Panel Informationon 10-20 P [place] 81 degrees [facility] [place] Interval 156 ms [facility] QRS [place] 38 degrees [facility] QRSD Interval 88 ms [facility] QT Interval 415 ms [facility] QTC Interval 440 ms [facility] T Wave [place] [address] [facility] Sinus rhythm Low voltage, precordial leads No previous ECG available for comparison Electronically Signed On 10-20-2022 3:35:05 EST by Darien Cuellar DO - 10/20/2022 IMPRESSION: Sinus rhythm Low voltage, precordial leads No previous ECG available for comparison Electronically Signed On 10-20-2022 3:35:05 EST by Darien Ziegler [facility] Vital signson 10-20-2022 Heart rate 68 /min bpm [facility] CBC W Auto Differential pane l (Bld)Ordered By: Dimple Aquino on 10-19-2022 Basophils (Bld) [#/Vol] 0.0 10*3/uL 0.0 - 0.2 10*3/uL [facility] Basophils/100 WBC (Bld) 0.1 % 0.0 - 2.0 % [facility] Eosinophils (Bld) [#/Vol] 0.0 10*3/uL 0.0 - 0.5 10*3/uL [facility] Eosinophils/100 WBC (Bld) 0.2 % Low 1.0 - 6.0 % [facility] Erythrocyte distribution width (RBC) [Ratio] 12.2 % 11.5 - 14.5 % [facility] Hematocrit (Bld) [Volume fraction] 41.1 % 35.0 - 47.0 % [facility] Hemoglobin (Bld) [Mass/Vol] 14.2 g/dL 11.7 - 16.0 g/dL [facility] Immature granulocytes (Bld) [#/Vol] 0.0 10*3/uL NINF - 0.0 10*3/uL [facility] Immature granulocytes/100 WBC (Bld) 0.2 % High NINF - 0.0 % [facility] Interpretation and review of laboratory results Abnormal [facility] Lymphocytes (Bld) [#/Vol] 1.5 10*3/uL 1.0 - 4.3 10*3/uL [facility] Lymphocytes/100 WBC (Bld) 18.5 % Low 20.0 - 40.0 % [facility] MCH (RBC) [Entitic mass] 31.1 pg 26. 0 - 34.0 pg [facility] MCHC (RBC) [Mass/Vol] 34.5 % 32.0 - 36.0 % [facility] MCV (RBC) [Entitic vol] 90.1 fL 80.0 - 98.0 fL [facility] Monocytes (Bld) [#/Vol] 0.3 10*3/uL 0.0 - 0.8 10*3/uL [facility] Monocytes/100 WBC (Bld) 3.5 % 2.0 - 10.0 % [facility] Neutrophils (Bld) [#/Vol] 6.4 10*3/uL 1.8 - 7.0 10*3/uL [facility] Neutrophils/100 WBC (Bld) 77.5 % 40.0 - 80.0 % [facility] Platelet mean volume (Bld) [Entitic vol] 10.4 fL 7.4 - 12.4 fL [facility] Comment on above: MPV is a calculated measurement using platelet volume ratio Platelets (Bld) [#/Vol] 310 10*3/uL 140 - 440 10*3/uL [facility] RBC (Bld) [#/Vol] 4.56 10*6/uL 3.8 - 5.20 10*6/uL [facility] WBC (Bld) [#/Vol] 8.3 10*3/uL 3.6 - 10.7 10*3/uL [facility] CT Head WO contraston 2022 1. No acute intracranial findings. Report Dictated on Electronically Signed By: Ravindra Mae Electronically Signed Date/Time: 10/19/2022 8:21 PM [facility] Patient Name: JOVITA CABAN : 1975 Exam Date/Time: 10/19/2022 20:13 Procedure: CT HEAD WO IV CONTRAST Ordering Provider: ZIEGLER TYLER Reason For Exam: Headache, chronic, new features or increased frequency CT BRAIN WITHOUT CONTRAST CLINICAL INDICATION: Headache, chronic, new features or increased frequency TECHNIQUE: CT scan of the brain without IV contrast. Multiplanar reformations. Dose reduction was employed with automated exposure control. COMPARISON: None. FINDINGS: No apparent mass or mass effect, hemorrhage, midline shift or hydrocephalus. No evidence of acute cortical infarct. No abnormal, extra-axial fluid or air collection. Osseous calvarium grossly intact. [facility] Ravindra Mae MD - 10/19/2022 Patient Name: JOVITA CABAN : 1975 Exam Date/Time: 10/19/2022 20:13 Procedure: CT HEAD WO IV CONTRAST Ordering Provider: ZIEGLER TYLER Reason For Exam: Headache, chronic, new features or increased frequency CT BRAIN WITHOUT CONTRAST CLINICAL INDICATION: Headache, chronic, new features or increased frequency TECHNIQUE: CT scan of the brain without IV contrast. Multiplanar reformations. Dose reduction was employed with automated exposure control. COMPARISON: None. FINDINGS: No apparent mass or mass effect, hemorrhage, midline shift or hydrocephalus. No evidence of acute cortical infarct. No abnormal, extra-axial fluid or air collection. Osseous calvarium grossly intact. IMPRESSION: 1. No acute intracranial findings. Report Dictated on Electronically Signed By: Ravindra Mae Electronically Signed Date/Time: 10/19/2022 8:21 PM EST [facility] Comprehensive metabolic 1998 panelon 10-19-2022 Albumin [Mass/Vol] 4.3 g/dL 3.5 - 5.0 g/dL [facility] ALP [Catalytic activity/Vol] 82 U/L 38 - 126 U/L [facility] ALT [Catalytic activity/Vol] 11 U/L 0 - 34 U/L [facility] Anion gap [Moles/Vol] 5 mmol/L 3 - 13 mmol/L [facility] AST [Catalytic activity/Vol] 24 U/L 15 - 46 U/L [facility] Bilirubin [Mass/Vol] 0.5 mg/dL 0.2 - 1 .3 mg/dL [facility] Calcium [Mass/Vol] 9.3 mg/dL 8.4 - 10. 4 mg/dL [facility] Chloride [Moles/Vol] 106 mmol/L 98 - 10 7 mmol/L [facility] CO2 [Moles/Vol] 28 mmol/L 22 - 30 mmol/L [facility] Creatinine [Mass/Vol] 0.61 mg/dL 0.52 - 1.04 mg/dL [facility] GFR/1.73 sq M.predicted MDRD (S/P/Bld) [Vol rate/Area] - PINF [facility] Comment on above: Calculation based on the Chronic Kidney Disease Epidemiology Collaboration (CKD-EPI) equation refit without adjustment for race Glucose [Mass/Vol] 102 mg/dL High 70 - 100 mg/dL [facility] Interpretation and review of laboratory results Abnormal [facility] Potassium [Moles/Vol] 3.8 mmol/L 3.5 - 5.1 mmol/L [facility] Protein [Mass/Vol] 7.9 g/dL 6.3 - 8.2 g/dL [facility] Sodium [Moles/Vol] 138 mmol/L 135 - 145 mmol/L [facility] Urea nitrogen [Mass/Vol] 13 mg/dL 7 - 17 mg/d L [facility] Laboratory - Chemistry and C hemistry - challengeon 10-19-2022 Troponin I.cardiac [Mass/Vol] ng/mL 0.000 - 0.034 ng/mL [facility] Lipase [Catalytic activity/Vol] 50 U/L 23 - 300 U/L [facility] Laboratory - Microbiology an d Antimicrobial susceptibilityon 10-19-2022 FLUAV RNA GARO+probe Ql (Resp) Not detected Not Detected [facility] FLUBV RNA GARO+probe Ql (Resp) Not detected Not Detected [facility] RSV RNA GARO+probe Ql (Resp) Not detected Not Detected [facility] SARS-CoV-2 (COVID-19) RNA GARO+probe Ql (Resp) Not detected Not Detected [facility] SARS-CoV-2 (COVID-19) RNA GARO+probe Ql (Unsp spec) Methodology: real-time, RT-PCR The SARS-CoV-2, Flu A/B, and RSV Combo assay is intended for in vitro diagnostic use under the FDA Emergency Use Authorization (EUA). This test has not been FDA cleared or approved. In compliance with this authorization, please visit www.fda.gov/media/54 1769/download or www.fda.gov/media/14 9314/download to access the applicable information sheets. [facility] Lipase [Catalytic activity/V ol]on 10-19-2022 Interpretation and review of laboratory results Normal [facility] No Panel Informationon 10-19 [facility] Radiology Study observation (narrative) Katie ross SARS-CoV-2, Flu A/B, and RSV Comboon 10-19-2022 Interpretation and review of laboratory results Normal [facility] Troponin I.cardiac [Mass/Vol ]on 10-19-2022 Interpretation and review of laboratory results Normal [facility] Patients with high levels of Biotin oral intake (ie >5 mg/day) may have falsely decreased Troponin levels. [facility] XR Chest Single viewon 10-19 1. No acute findings. Report Dictated on Electronically Signed By: Ravindra Mae Electronically Signed Date/Time: 10/19/2022 8:18 PM [facility] Patient Name: JOVITA CABAN : 1975 Exam Date/Time: 10/19/2022 20:11 Procedure: XR CHEST 1 VIEW Ordering Provider: ZIEGLER TYLER Reason For Exam: CHEST PAIN CHEST PORTABLE CLINICAL INDICATION: CHEST PAIN TECHNIQUE: Portable chest x-ray(s). COMPARISON: None. FINDINGS: Cardiac and mediastinal silhouette within normal limits. Lungs are grossly clear. No significant vascular congestion. No apparent pneumothorax. Bony thorax grossly unremarkable. [facility] Ravindra Mae MD - 10/19/2022 Patient Name: JOVITA CABAN : 1975 Exam Date/Time: 10/19/2022 20:11 Procedure: XR CHEST 1 VIEW Ordering Provider: ZIEGLER TYLER Reason For Exam: CHEST PAIN CHEST PORTABLE CLINICAL INDICATION: CHEST PAIN TECHNIQUE: Portable chest x-ray(s). COMPARISON: None. FINDINGS: Cardiac and mediastinal silhouette within normal limits. Lungs are grossly clear. No significant vascular congestion. No apparent pneumothorax. Bony thorax grossly unremarkable. IMPRESSION: 1. No acute findings. Report Dictated on Electronically Signed By: Ravindra Mae Electronically Signed Date/Time: 10/19/2022 8:[address] [facility] [facility] [facility] Chest Single viewOrdered By: Ravindra Mae on 10-19-2022 [employer] Work Phone: Absolute lymphocyte counton 07-11-2022 Lymphocytes Auto (Unsp spec) [#/Vol] 1.73 10*3/uL 0.83-4.51 [facility] Work Phone: [phone] Basophil percentageon 2021 Basophils/100 WBC (Bld) 0.6 % 0-1 [facility] Work Phone: [phone] Bilirubin [Mass/Vol] 0.30 mg/dL 0.20-1.00 [facility] Work Phone: [phone] Comment on above: For patients on eltr ombopag therapy, use of Dimension [place] TBIL is not recommended. Chloride [Moles/Vol] 106 mmol/L 98-107 [facility] Work Phone: [phone] Eosinophils/100 WBC (Bld) 1.4 % 0-5 [facility] Work Phone: [phone] Glucose [Mass/Vol] 93 mg/dL 74-106 [facility] Work Phone: [phone] Neutrophils (Bld) [#/Vol] 2.8 10*3/uL 2.0-7.7 [facility] Work Phone: [phone] Neutrophils/100 WBC (Bld) 55.7 % 47-70 [facility] Work Phone: [phone] Potassium [Moles/Vol] 3.6 mmol/L 3.5-5.1 [facility] Work Phone: [phone] Protein [Mass/Vol] 7.5 g/dL 6.4-8.2 [facility] Work Phone: [phone] Sodium [Moles/Vol] 140 mmol/L 136-145 [facility] Work Phone: [phone] WBC (Bld) [#/Vol] 4.9 10*3/uL 4.4-11.0 [facility] Work Phone: Blood erythrocytes count (nu mber/volume)on 07-11-2022 RBC (Bld) [#/Vol] 4.49 10*6/uL 4.2-5.4 [facility]: Blood hemoglobin measurement (mass/volume)on 07-11-2022 Hemoglobin (Bld) [Mass/Vol] 14.0 g/dL 12.0-15.0 [facility] Work Phone: Blood lymphocytes/100 leukoc yteson 07-11-2022 Lymphocytes/100 WBC (Bld) 35.0 % 19-41 [facility] Work Phone: Blood monocytes/100 leukocyt eson 07-11-2022 Monocytes/100 WBC (Bld) 7.1 % 0-10 [facility] Work Phone: Blood platelet mean volumeon 07-11-2022 Platelet mean volume (Bld) [Entitic vol] 10.8 fL 6.2-12.0 [facility] Work Phone: Determination of erythrocyte mean corpuscular volume (MCV)on 07-11-2022 MCV (RBC) [Entitic vol] 92.2 fL 81-99 [facility] Work Phone: Hematocrit Auto (Bld) [Volum e fraction]on 07-11-2022 Hematocrit (Bld) [Volume fraction] 41.4 % 37-47 [facility] Work Phone: Laboratory - Chemistry and C hemistry - challengeon 07-11-2022 ALP [Catalytic activity/Vol] 85 U/L 45-117 [facility] Work Phone: ALT [Catalytic activity/Vol] 20 U/L 13-56 [facility] Work Phone: CO2 [Moles/Vol] 28.0 mmol/L 21.0-32.0 [facility] Work Phone: Free T4 [Mass/Vol] 0.98 ng/dL 0.76-1.46 [facility] Work Phone: Globulin (S) [Mass/Vol] 4.1 g/dL 2.2-4.2 [facility] Work Phone: Urea nitrogen/Creatinine [Mass ratio] 13.5 mg/mg 10-20 [facility] Work Phone: Laboratory - Hematology and Cell countson 07-11-2022 Erythrocyte distribution width (RBC) [Entitic vol] 42.8 fL 35.1-43.9 [facility] Work Phone: Erythrocyte distribution width (RBC) [Ratio] 12.6 % 11.6-14.6 [facility] Work Phone: Immature granulocytes/100 WBC (Bld) 0.200 % 0.0-0.9 [facility] Work Phone: Comment on above: IG% - Immature Granu locytes (promyelocytes, myelocytes and metamyelocytes) > 1% indicates that a LEFT SHIFT is Present. MCH (RBC) [Entitic mass] 31.2 pg 27.0-32.0 [facility] Work Phone: Nucleated RBC/100 WBC (Bld) [Ratio] 0 % 0-5 [facility] Work Phone: MCHC Auto (RBC) [Mass/Vol]on 07-11-2022 MCHC (RBC) [Mass/Vol] 33.8 g/dL 32-36 [facility] Work Phone: No Panel Informationon 07-11 Estimated GFR (MDRD) Amer 141 mL/min >60 [facility] Work Phone: Comment on above: GFR Calc Estimated GFR (MDRD) Non-Af Amer 116 mL/min >60 [facility] Work Phone: Comment on above: Non- GFR Calc Thyroid Stimulating Hormone (TSH) 0.87 uIU/mL 0.358-3.74 [facility] Work Phone: Vitamin D 25-Hydroxy 64.6 ng/mL [facility] Work Phone: Comment on above: Vitamin D 25(OH) Sta tus Range Deficiency <20 ng/mL (50nmol/L) Insufficiency 20 - 30 ng/mL (50 - 75 nmol/L) Sufficiency 30 - 100 ng/mL (75 - 250 nmol/L) Toxicity >100 ng/mL (>250 nmol/L) Platelets bldon 07-11-2022 Platelets (Bld) [#/Vol] 283 10*3/uL 150-450 [facility] Work Phone: Serum or plasma albumin catarino urement (mass/volume)on 07-11-2022 Albumin [Mass/Vol] 3.4 g/dL 3.2-5.0 [facility] Work Phone: Serum or plasma albumin/glob ulin mass ratioon 07-11-2022 Albumin/Globulin [Mass ratio] 0.8 {ratio} 0.9-2.4 [facility] Work Phone: Serum or plasma calcium catarino urement (mass/volume)on 07-11-2022 Calcium [Mass/Vol] 9.0 mg/dL 8.5-10.1 [facility] Work Phone: Serum or plasma creatinine m easurement (mass/volume)on 07-11-2022 Creatinine [Mass/Vol] 0.59 mg/dL 0.55-1.02 [facility] Work Phone: Comment on above: The validity of the calculated GFR & GFRAA in patients over 70 years has not been determined. Clinical correlation is essential. Serum or plasma urea nitroge n measurement (mass/volume)on 07-11-2022 Urea nitrogen [Mass/Vol] 8 mg/dL 7-18 [facility] Work Phone: Thin prep Papanicolaou smear with manual screeningon 07-11-2022 Thin prep Papanicolaou smear with manual screening 21 U/L 15-37 [facility] Work Phone: Thin prep Papanicolaou smear with manual screening 6 5-15 [facility] Work Phone: [phone] Absolute lymphocyte counton 03-17-2022 Lymphocytes Auto (Unsp spec) [#/Vol] 1.92 10*3/uL 0.83-4.51 [facility] Work Phone: Basophil percentageon 2021 Basophils/100 WBC (Bld) 0.4 % 0-1 [facility] Work Phone: Bilirubin [Mass/Vol] 0.20 mg/dL 0.20-1.00 [facility] Work Phone: Comment on above: For patients on eltr ombopag therapy, use of Dimension [place] TBIL is not recommended. Chloride [Moles/Vol] 108 mmol/L 98-107 [facility] Work Phone: [phone] Eosinophils/100 WBC (Bld) 1.1 % 0-5 [facility] Work Phone: [phone] Glucose [Mass/Vol] 84 mg/dL 74-106 [facility] Work Phone: Neutrophils (Bld) [#/Vol] 2.9 10*3/uL 2.0-7.7 [facility] Work Phone: [phone] Neutrophils/100 WBC (Bld) 54.5 % 47-70 [facility] Work Phone: Potassium [Moles/Vol] 3.9 mmol/L 3.5-5.1 [facility] Work Phone: [phone] Protein [Mass/Vol] 7.5 g/dL 6.4-8.2 [facility] Work Phone: Sodium [Moles/Vol] 140 mmol/L 136-145 [facility] Work Phone: WBC (Bld) [#/Vol] 5.4 10*3/uL 4.4-11.0 [facility] Work Phone: [phone] Blood erythrocytes count (nu mber/volume)on 03-17-2022 RBC (Bld) [#/Vol] 4.42 10*6/uL 4.2-5.4 [facility] Work Phone: Blood hemoglobin measurement (mass/volume)on 03-17-2022 Hemoglobin (Bld) [Mass/Vol] 13.3 g/dL 12.0-15.0 [facility] Work Phone: Blood lymphocytes/100 leukoc yteson 03-17-2022 Lymphocytes/100 WBC (Bld) 35.8 % 19-41 [facility] Work Phone: Blood monocytes/100 leukocyt eson 03-17-2022 Monocytes/100 WBC (Bld) 7.8 % 0-10 [facility] Work Phone: Blood platelet mean volumeon 03-17-2022 Platelet mean volume (Bld) [Entitic vol] 10.7 fL 6.2-12.0 [facility] Work Phone: Determination of erythrocyte mean corpuscular volume (MCV)on 03-17-2022 MCV (RBC) [Entitic vol] 92.3 fL 81-99 [facility] Work Phone: Hematocrit Auto (Bld) [Volum e fraction]on 03-17-2022 Hematocrit (Bld) [Volume fraction] 40.8 % 37-47 [facility] Work Phone: Laboratory - Chemistry and C hemistry - challengeon 03-17-2022 ALP [Catalytic activity/Vol] 77 U/L 45-117 [facility] Work Phone: ALT [Catalytic activity/Vol] 21 U/L 13-56 [facility] Work Phone: CO2 [Moles/Vol] 28.0 mmol/L 21.0-32.0 [facility] Work Phone: Free T4 [Mass/Vol] 0.92 ng/dL 0.76-1.46 [facility] Work Phone: Globulin (S) [Mass/Vol] 4.1 g/dL 2.2-4.2 [facility] Work Phone: Urea nitrogen/Creatinine [Mass ratio] 15.0 mg/mg 10-20 [facility] Work Phone: Laboratory - Hematology and Cell countson 03-17-2022 Erythrocyte distribution width (RBC) [Entitic vol] 41.8 fL 35.1-43.9 [facility] Work Phone: Erythrocyte distribution width (RBC) [Ratio] 12.4 % 11.6-14.6 [facility] Work Phone: Immature granulocytes/100 WBC (Bld) 0.400 % 0.0-0.9 [facility] Work Phone: Comment on above: IG% - Immature Granu locytes (promyelocytes, myelocytes and metamyelocytes) > 1% indicates that a LEFT SHIFT is Present. MCH (RBC) [Entitic mass] 30.1 pg 27.0-32.0 [facility] Work Phone: Nucleated RBC/100 WBC (Bld) [Ratio] 0 % 0-5 [facility] Work Phone: MCHC Auto (RBC) [Mass/Vol]on 03-17-2022 MCHC (RBC) [Mass/Vol] 32.6 g/dL 32-36 [facility] Work Phone: No Panel Informationon 03-17 Estimated GFR (MDRD) Amer 111 mL/min >60 [facility] Work Phone: Comment on above: GFR Calc Estimated GFR (MDRD) Non-Af Amer 92 mL/min >60 [facility] Work Phone: Comment on above: Non- GFR Calc Thyroid Stimulating Hormone (TSH) 0.06 uIU/mL 0.358-3.74 [facility] Work Phone: Vitamin D 25-Hydroxy 36.0 ng/mL [facility] Work Phone: Comment on above: Vitamin D 25(OH) Sta tus Range Deficiency <20 ng/mL (50nmol/L) Insufficiency 20 - 30 ng/mL (50 - 75 nmol/L) Sufficiency 30 - 100 ng/mL (75 - 250 nmol/L) Toxicity >100 ng/mL (>250 nmol/L) Platelets bldon 03-17-2022 Platelets (Bld) [#/Vol] 278 10*3/uL 150-450 [facility] Work Phone: Serum or plasma albumin catarino urement (mass/volume)on 03-17-2022 Albumin [Mass/Vol] 3.4 g/dL 3.2-5.0 [facility] Work Phone: Serum or plasma albumin/glob ulin mass ratioon 03-17-2022 Albumin/Globulin [Mass ratio] 0.8 {ratio} 0.9-2.4 [facility] Work Phone: Serum or plasma calcium catarino urement (mass/volume)on 03-17-2022 Calcium [Mass/Vol] 9.3 mg/dL 8.5-10.1 [facility] Work Phone: Serum or plasma creatinine m easurement (mass/volume)on 03-17-2022 Creatinine [Mass/Vol] 0.73 mg/dL 0.55-1.02 [facility] Work Phone: Comment on above: The validity of the calculated GFR & GFRAA in patients over 70 years has not been determined. Clinical correlation is essential. Serum or plasma urea nitroge n measurement (mass/volume)on 03-17-2022 Urea nitrogen [Mass/Vol] 11 mg/dL 7-18 [facility] Work Phone: Thin prep Papanicolaou smear with manual screeningon 03-17-2022 Thin prep Papanicolaou smear with manual screening 27 U/L 15-37 [facility] Work Phone: Thin prep Papanicolaou smear with manual screening 4 5-15 [facility] Work Phone: OBSOLETEon 09-18-2020 OBSOLETE Refill (FPDOYL) JOVITA CABAN ([id number]) 1975 F [place] Date Time Provider Department 09/18/20 SANTO KEITH During your visit today, we recorded the following information about you: Gretchen Kwan LPN, LIDYA 09/18/2020 1:50 PM Signed Left message to call us back. Allergies As of Date: 09/18/2020 (No Known Allergies) Date Reviewed: 08/11/2020 Reviewed by: Santo Keith - Fully Assessed Reason for Visit: Refill Request [94] Prescriptions as of 09/18/2020 Sig: BUPROPION HCL SR 200 MG TABLE* CLONAZEPAM 0.5 MG TABLET Take 1 tablet by mouth once d* ESCITALOPRAM 10 MG TABLET ESCITALOPRAM 20 MG TABLET X SYNTHROID 100 MCG TABLET Take 1 tablet by mouth once d* X SYNTHROID 50 MCG TABLET Take 1 tablet by mouth once d* X METFORMIN 500 MG TABLET Take 1 tablet by mouth once d* Problem List As Of Date 09/18/2020 Noted Resolved Hypothyroidism, unspecified [E03.9] OCD (obsessive compulsive disorder) [F42.9] Anxiety with depression [F41.8] 08/11/2020 Screening for cholesterol level [Z13.220] 08/11/2020 Special screening examination for viral disease*08/11/2020 Encounter Status:Closed by GRETCHEN KWAN LPN on 10/22/20 [facility] OBSOLETE Refill (FPDOYL) JOVITA CABAN ([id number]) 1975 F [place] Date Time Provider Department 09/18/20 SANTO KEITH During your visit today, we recorded the following information about you: Gretchen KwanLIDYA LPN 09/18/2020 2:11 PM Signed Patient called requesting the following refill Refill(s) Requested: Pending Prescriptions Disp Refills SYNTHROID 100 MCG TABLET 90 tablet 3 Sig: Take 1 tablet by mouth once daily. LEATHA: Yes SYNTHROID 50 MCG TABLET 90 tablet 3 Sig: Take 1 tablet by mouth once daily. LEATHA: Yes METFORMIN 500 MG TABLET 90 tablet 3 Sig: Take 1 tablet by mouth once daily. LEATHA: No ALLERGIES No Known Allergies (home) [phone] (cell) Last Visit date: 08/11/2020 Future appointment: 02/09/2021 The patients preferred pharmacy has been captured for this encounter? yes Request is for script(s) to be escript to pharmacy. Gretchen KwanLIDYA Allergies As of Date: 09/18/2020 (No Known Allergies) Date Reviewed: 08/11/2020 Reviewed by: Santo Keith - Fully Assessed Reason for Visit: Refill Request [94] Order(s):SYNTHROID 100 mcg tabletTake 1 tablet by mouth once daily.Disp: 90 tabletRfl: 3 SYNTHROID 50 mcg tabletTake 1 tablet by mouth once daily.Disp: 90 tabletRfl: 3 metFORMIN (GLUCOPHAGE) 500 mg tabletTake 1 tablet by mouth once daily.Disp: 90 tabletRfl: 3 Prescriptions as of 09/18/2020 Sig: SYNTHROID 100 MCG TABLET Take 1 tablet by mouth once d* SYNTHROID 50 MCG TABLET Take 1 tablet by mouth once d* METFORMIN 500 MG TABLET Take 1 tablet by mouth once d* BUPROPION HCL SR 200 MG TABLE* CLONAZEPAM 0.5 MG TABLET Take 1 tablet by mouth once d* ESCITALOPRAM 10 MG TABLET ESCITALOPRAM 20 MG TABLET Problem List As Of Date 09/18/2020 Noted Resolved Hypothyroidism, unspecified [E03.9] OCD (obsessive compulsive disorder) [F42.9] Anxiety with depression [F41.8] 08/11/2020 Screening for cholesterol level [Z13.220] 08/11/2020 Special screening examination for viral disease*08/11/2020 Prescriptions ordered this encounter Disp Refills Start End SYNTHROID 100 MCG TABLET 90 t* 3 09/21/2020 12/20/2020 Route: ORAL Sig: Take 1 tablet by mouth once daily. SYNTHROID 50 MCG TABLET 90 t* 3 09/21/2020 12/20/2020 Route: ORAL Sig: Take 1 tablet by mouth once daily. METFORMIN 500 MG TABLET 90 t* 3 09/21/2020 12/20/2020 Route: ORAL Sig: Take 1 tablet by mouth once daily. Medications Discontinued During This Encounter Prescriptions - SYNTHROID 100 mcg tablet (Discontinued) Take 1 tablet by mouth once daily. - SYNTHROID 50 mcg tablet (Discontinued) Take 1 tablet by mouth once daily. - metFORMIN (GLUCOPHAGE) 500 mg tablet (Discontinued) Take 1 tablet by mouth once daily. Encounter Status:Closed by SANTO KEITH on 09/21/20 [facility] CNOVon 08-11-2020 [facility] Office Visit (FPDOYL) JOVITA CABAN ([id number]) 1975 F [place] Date Time Provider Department 08/11/20 9:00 AM SANTO KEITHDOYL During your visit today, we recorded the following information about you: Temperature Pulse Blood pressure Weight 96.9 degrees 70/minute 108/70 82.8 kg Height 1.676 m Santo Keith DO 08/11/2020 8:[address] [facility] Maspethmaryanne Keith DO [address] [place] [address] Date of Evaluation: 08/11/2020 Patient Name: Jovita Caban : 1975 Subjective Ms. Caban is a 45 year old female who presents to follow up for Hypothyroidism. The history is provided by the patient. Thyroid Problem Presents for follow-up visit. Symptoms include anxiety. Patient reports no constipation, diarrhea, palpitations or weight loss. Review of Systems Constitutional: Negative for chills, malaise/fatigue and weight loss. HENT: Negative for hearing loss, nosebleeds and tinnitus. Eyes: Negative for blurred vision and double vision. Respiratory: Negative for cough and shortness of breath. Cardiovascular: Negative for chest pain, palpitations, orthopnea, claudication, leg swelling and PND. Gastrointestinal: Negative for abdominal pain, constipation, diarrhea and heartburn. Genitourinary: Negative for frequency and hematuria. Musculoskeletal: Positive for back pain. Negative for joint pain, myalgias and neck pain. Skin: Negative. Neurological: Negative for dizziness, tingling, sensory change, focal weakness and headaches. Endo/Heme/Allergies: Negative for environmental allergies. Does not bruise/bleed easily. Psychiatric/Behavior al: Positive for depression. The patient is nervous/anxious. The patient does not have insomnia. PAST MEDICAL HISTORY Diagnosis Date - Hypothyroidism, unspecified - Idiopathic thrombocytopenic purpura (ITP) (HCC) - OCD (obsessive compulsive disorder) - PCOS (polycystic ovarian syndrome) - Sciatica PAST SURGICAL HISTORY Procedure Laterality Date - ORAL SURGERY PROCEDURE wisdom teeth FAMILY HISTORY Problem Relation Age of Onset - Diabetes Paternal Grandmother - Heart disease Other - Thyroid Other Social History Tobacco Use - Smoking status: Never Smoker - Smokeless tobacco: Never Used Substance Use Topics - Alcohol use: Never Frequency: Never - Drug use: Never Current Meds buPROPion HCL 200 mg 12 hr tablet clonazePAM (KLONOPIN) 0.5 mg tablet Take 1 tablet by mouth once daily. escitalopram oxalate (LEXAPRO) 20 mg tablet SYNTHROID 100 mcg tablet Take 1 tablet by mouth once daily. SYNTHROID 50 mcg tablet Take 1 tablet by mouth once daily. metFORMIN (GLUCOPHAGE) 500 mg tablet Take 1 tablet by mouth once daily. escitalopram oxalate (LEXAPRO) 10 mg tablet Objective BP 108/70 (BP Site: Right Arm, BP Position: Sitting) Pulse 70 Temp 36.1 ?C (96.9 ?F) Ht 5' 6 (1.676 m) Wt 182 lb 9.6 oz (82.8 kg) SpO2 99% BMI 29.47 kg/m? Physical Exam Constitutional: She is oriented to person, place, and time and well-developed, well-nourished, and in no distress. Vital signs are normal. HENT: Head: Normocephalic and atraumatic. Right Ear: Tympanic membrane, external ear and ear canal normal. Left Ear: Tympanic membrane, external ear and ear canal normal. Nose: Nose normal. Mouth/Throat: Oropharynx is clear and moist. Eyes: Pupils are equal, round, and reactive to light. Conjunctivae, EOM and lids are normal. Neck: Normal range of motion. Neck supple. Cardiovascular: Normal rate, regular rhythm, normal heart sounds and intact distal pulses. Pulmonary/Chest: Effort normal and breath sounds normal. Abdominal: Soft. Bowel sounds are normal. There is no abdominal tenderness. Musculoskeletal: Normal range of motion. Neurological: She is alert and oriented to person, place, and time. She has normal reflexes. Gait normal. GCS score is 15. Skin: Skin is warm, dry and intact. Psychiatric: Mood, memory, affect and judgment normal. Nursing note and vitals reviewed. Data Reviewed: No new labs ASSESSMENT/PLAN: 1. Hypothyroidism due to acquired atrophy of thyroid - ICD9: 244.8, 246.8, ICD10: E03.4 (primary diagnosis) - Instructed patient on importance of taking on an empty stomach either first thing in the morning or at bedtime. - check TSH today - TSH BLD 2. Anxiety with depression - ICD9: 300.4, ICD10: F41.8 - Controlled with current medication regimen. - Psychiatry is managing. 3. Other obsessive-compulsive disorders - ICD9: 300.3, ICD10: F42.8 - Psychiatry is managing. 4. Screening for cholesterol level - ICD9: V77.91, ICD10: Z13.220 - COMP METABOLIC PANEL - LIPID PANEL BASIC 5. Special screening examination for viral disease - ICD9: V73.99, ICD10: Z11.59 - HEP C AB IA W/CONF SCRN Return in about 6 months (around 02/09/2021). Santo Keith DO Attestation: Scribe Statement: Avery Bangura am scribing for, and in the presence of, Santo Keith DO August 11, 2020 8:45 AM. Physician Statement: ISanto DO, personally performed the services described in the documentation, as scribed by Marialuisa Miguel in my presence, and it is both accurate and complete August 11, 2020 9:12 AM. I have confirmed and edited as necessary the past medical, family and social histories, HPI, and ROS obtained by others. Marialuisa Tsangnc 08/11/2020 8:51 AM Signed Hypothyroidism What is the thyroid gland? The thyroid is a small butterfly-shaped gland located just below the Dann?s apple. The primary function of the thyroid is to control the body?s metabolism (the rate at which the cells perform duties essential to living). To control the metabolism, the thyroid produces the hormones T4 and T3, which tell the body?s cells how much energy to use. These hormones act on almost all the tissues and organs of the body. They help control your body temperature, influence your heart rate, and regulate the production of protein. A properly functioning thyroid will maintain the right amount of hormones needed to keep your body?s metabolism functioning at a satisfactory rate. As the hormones are used, the thyroid creates replacements. The quantity of the thyroid hormones in the bloodstream is monitored and controlled by the pituitary gland, which is located in the center of the skull below the brain. When the pituitary gland senses either a lack of thyroid hormone or too much, it will adjust its own hormone (thyroid stimulating hormone, or TSH) and send it to the thyroid to tell it what to do. What is hypothyroidism? If there is not enough thyroid hormone in the bloodstream, your body?s metabolism slows down. This condition is called hypothyroidism (also known as underactive thyroid disease). It is a relatively common disease that affects people of all ages and races. However, women, especially older women, are more likely to develop hypothyroidism than men are. Hypothyroidism can affect up to 20% of women over the age of 50. What causes hypothyroidism? The most common cause of hypothyroidism is a disorder known as autoimmune thyroiditis (Kris?s disease). The body?s immune system causes the thyroid gland to lower the amount of hormones produced. Kris?s disease can be hereditary, meaning it runs in families. Thyroiditis (inflammation of the thyroid) can also occur after or a viral illness. Treatment with radioactive iodine for hyperthyroidism (overactive thyroid) can result in hypothyroidism. Additionally, several medicines (lithium and amiodarone) can affect thyroid function. Another potential cause of hypothyroidism is a problem with the pituitary gland. The pituitary might fail to stimulate the thyroid to make enough hormones to meet the body?s needs. What are the symptoms of hypothyroidism? The symptoms of hypothyroidism usually develop slowly over a number of years and include: ? Fatigue ? Numbness and tingling in hands ? Constipation ? Weight gain ? Intolerance to cold ? Dry, coarse skin and hair ? Decreased sexual interest ? Frequent, heavy menstrual periods ? Forgetfulness How is hypothyroidism diagnosed? Hypothyroidism can be difficult to diagnose because the symptoms are easily confused with other conditions. A blood test called the TSH test can identify thyroid disorders even before the onset of symptoms. How is hypothyroidism treated? Hypothyroidism is treated by replacing the amount of hormone that your thyroid can no longer make. Various forms of thyroid hormone are available. Thyroid medicines are best if taken on an empty stomach. Your doctor will monitor your illness and adjust your dosage as needed. Thyroid disease is a lifelong condition. However, with careful management, you can lead a normal and healthy life. What happens if hypothyroidism is not treated? If hypothyroidism is not treated, symptoms might become more severe, and can include: ? Mental health problems ? Trouble breathing ? Inability to maintain normal body temperatures ? Heart problems ? Goiter (enlargement of the thyroid gland) ? Coma (occurs very rarely if the condition is not treated for a long time) Can hypothyroidism be prevented? Hypothyroidism cannot be prevented. However, you can watch for symptoms so that the condition can be treated in a timely manner. References ? [place] [employer]. Hypothyroidism Accessed 10/31/2016. ? U.[place] Department of Health and Human Services. Thyroid Disease Accessed 10/31/2016. ? [employer]. Congenital Hypothyroidism Accessed 10/31/2016. ? Copyright 6718-[address] [facility]. All rights reserved This information is provided by the [facility] and is not intended to replace the medical advice of your doctor or health care provider. Please consult your health care provider for advice about a specific medical condition. For additional health information, please contact the [facility] Information at the [facility] [facility] or toll-free extension [phone]. If you prefer, you may visit [email or web address] or [email or web address]. This document was last reviewed on: 2016 index#[id number] Referring Provider: SANTO KEITH [[id number]] Allergies As of Date: 08/11/2020 (No Known Allergies) Date Reviewed: 08/11/2020 Reviewed by: Santo Keith - Fully Assessed Reason for Visit: Thyroid Problem [110] Cmt: requesting thyroid checked since been a year Polycystic Ovarian Syndrome [1460] Cmt: requesting blood for her glucose level and cholesterol. patient is fasting. Hypothyroidism [1738] Reason For Visit History Recorded Primary Visit Diagnosis:Hypothyroi dism due to acquired atrophy of thyroid [E03.4] Other Visit Diagnoses:Anxiety with depression [F41.8] Other obsessive-compulsive disorders [F42.8] Screening for cholesterol level [Z13.220] Special screening examination for viral disease [Z11.59] Order(s):HEP C AB IA W/CONF SCRN [JOOSFX6G] Order #: [id number] FUTURE TSH BLD [SQTSH] Order #: [id number] FUTURE COMP METABOLIC PANEL [SQCMP] Order #: [id number] FUTURE LIPID PANEL BASIC [SQLIPB] Order #: [id number] FUTURE Prescriptions as of 08/11/2020 Sig: BUPROPION HCL SR 200 MG TABLE* CLONAZEPAM 0.5 MG TABLET Take 1 tablet by mouth once d* ESCITALOPRAM 20 MG TABLET SYNTHROID 100 MCG TABLET Take 1 tablet by mouth once d* SYNTHROID 50 MCG TABLET Take 1 tablet by mouth once d* METFORMIN 500 MG TABLET Take 1 tablet by mouth once d* ESCITALOPRAM 10 MG TABLET Problem List As Of Date 08/11/2020 Noted Resolved Hypothyroidism, unspecified [E03.9] OCD (obsessive compulsive disorder) [F42.9] Anxiety with depression [F41.8] 08/11/2020 Screening for cholesterol level [Z13.220] 08/11/2020 Special screening examination for viral disease*08/11/2020 Other instructions from your clinician: Hypothyroidism What is the thyroid gland? The thyroid is a small butterfly-shaped gland located just below the Dann?s apple. The primary function of the thyroid is to control the body?s metabolism (the rate at which the cells perform duties essential to living). To control the metabolism, the thyroid produces the hormones T4 and T3, which tell the body?s cells how much energy to use. These hormones act on almost all the tissues and organs of the body. They help control your body temperature, influence your heart rate, and regulate the production of protein. A properly functioning thyroid will maintain the right amount of hormones needed to keep your body?s metabolism functioning at a satisfactory rate. As the hormones are used, the thyroid creates replacements. The quantity of the thyroid hormones in the bloodstream is monitored and controlled by the pituitary gland, which is located in the center of the skull below the brain. When the pituitary gland senses either a lack of thyroid hormone or too much, it will adjust its own hormone (thyroid stimulating hormone, or TSH) and send it to the thyroid to tell it what to do. What is hypothyroidism? If there is not enough thyroid hormone in the bloodstream, your body?s metabolism slows down. This condition is called hypothyroidism (also known as underactive thyroid disease). It is a relatively common disease that affects people of all ages and races. However, women, especially older women, are more likely to develop hypothyroidism than men are. Hypothyroidism can affect up to 20% of women over the age of 50. What causes hypothyroidism? The most common cause of hypothyroidism is a disorder known as autoimmune thyroiditis (Kris?s disease). The body?s immune system causes the thyroid gland to lower the amount of hormones produced. Kris?s disease can be hereditary, meaning it runs in families. Thyroiditis (inflammation of the thyroid) can also occur after or a viral illness. Treatment with radioactive iodine for hyperthyroidism (overactive thyroid) can result in hypothyroidism. Additionally, several medicines (lithium and amiodarone) can affect thyroid function. Another potential cause of hypothyroidism is a problem with the pituitary gland. The pituitary might fail to stimulate the thyroid to make enough hormones to meet the body?s needs. What are the symptoms of hypothyroidism? The symptoms of hypothyroidism usually develop slowly over a number of years and include: ? Fatigue ? Numbness and tingling in hands ? Constipation ? Weight gain ? Intolerance to cold ? Dry, coarse skin and hair ? Decreased sexual interest ? Frequent, heavy menstrual periods ? Forgetfulness How is hypothyroidism diagnosed? Hypothyroidism can be difficult to diagnose because the symptoms are easily confused with other conditions. A blood test called the TSH test can identify thyroid disorders even before the onset of symptoms. How is hypothyroidism treated? Hypothyroidism is treated by replacing the amount of hormone that your thyroid can no longer make. Various forms of thyroid hormone are available. Thyroid medicines are best if taken on an empty stomach. Your doctor will monitor your illness and adjust your dosage as needed. Thyroid disease is a lifelong condition. However, with careful management, you can lead a normal and healthy life. What happens if hypothyroidism is not treated? If hypothyroidism is not treated, symptoms might become more severe, and can include: ? Mental health problems ? Trouble breathing ? Inability to maintain normal body temperatures ? Heart problems ? Goiter (enlargement of the thyroid gland) ? Coma (occurs very rarely if the condition is not treated for a long time) Can hypothyroidism be prevented? Hypothyroidism cannot be prevented. However, you can watch for symptoms so that the condition can be treated in a timely manner. References ? [place] [employer]. Hypothyroidism Accessed 10/31/2016. ? U.S. Department of Health and Human Services. Thyroid Disease Accessed 10/31/2016. ? [facility]. Congenital Hypothyroidism Accessed 10/31/2016. ? Copyright 2313-[address] [facility]. All rights reserved This information is provided by the [facility] and is not intended to replace the medical advice of your doctor or health care provider. Please consult your health care provider for advice about a specific medical condition. For additional health information, please contact the Center [facility] Information at the [facility] or toll-free extension [phone]. If you prefer, you may visit [email or web address] or [email or web address]. This document was last reviewed on: 2016 index#[id number] Disposition: Return in about 6 months (around 02/09/2021). Follow-up and Disposition History Recorded Encounter Status:Closed by SANTO KEITH on 08/11/20 Normal [facility] 08-11-2020 Cholesterol [Mass/Vol] 174 mg/dL <200 mg/dL [facility] Cholesterol in HDL [Mass/Vol] 39 mg/dL Low >39 mg/dL [facility] Cholesterol in LDL [Mass/Vol] 91 mg/dL <100 mg/dL [facility] Triglyceride [Mass/Vol] 218 mg/dL High <150 mg/dL C [facility] Comp Metab 2000 Pnl SerPlon 08-11-2020 Albumin [Mass/Vol] 4.3 g/dL Normal 3.9-4.9 [facility] Comment on above: Order Comment: Speci men Type: BLOOD SPECIMEN Performed By: #### 2 4323-8, LIPB, 3016-3 #### [facility] CLIA [id number] [address] [place] [address] ALP [Catalytic activity/Vol] 79 U/L Normal 34-123 [facility] Comment on above: Order Comment: Speci men Type: BLOOD SPECIMEN Performed By: #### 2 4323-8, LIPB, 3016-3 #### [facility] CLIA [id number] [address] [place] [address] ALT With P-5'-P [Catalytic activity/Vol] 11 U/L Normal 7-38 [facility] Comment on above: Order Comment: Speci men Type: BLOOD SPECIMEN Performed By: #### 2 4323-8, LIPB, 6-3 #### [facility] CLIA [id number] [address] [place] [address] Anion gap [Moles/Vol] 10 mmol/L Normal 9-18 [facility] Comment on above: Order Comment: Speci men Type: BLOOD SPECIMEN Performed By: #### 2 4323-8, LIPB, 6-3 #### [facility] CLIA [id number] [address] [place] [address] AST With P-5'-P [Catalytic activity/Vol] 21 U/L Normal 13-35 [facility] Comment on above: Order Comment: Speci men Type: BLOOD SPECIMEN Performed By: #### 2 4323-8, LIPB, 6-3 #### [facility] CLIA [id number] [address] [place] [address] Bilirubin [Mass/Vol] 0.3 mg/dL Normal 0.2-1.3 [facility] Comment on above: Order Comment: Speci men Type: BLOOD SPECIMEN Performed By: #### 2 4323-8, LIPB, 6-3 #### [facility] CLIA [id number] [address] [place] [address] Calcium [Mass/Vol] 9.2 mg/dL Normal 8.5-10.2 [facility] Comment on above: Order Comment: Speci men Type: BLOOD SPECIMEN Performed By: #### 2 4323-8, LIPB, 3016-3 #### [facility] CLIA [id number] [address] [place] [address] Chloride [Moles/Vol] 103 mmol/L Normal 97-105 [facility] Comment on above: Order Comment: Speci men Type: BLOOD SPECIMEN Performed By: #### 2 4323-8, LIPB, 6-3 #### [facility] CLIA [id number] [address] [place] [address] CO2 [Moles/Vol] 27 mmol/L Normal 22-30 [facility] Comment on above: Order Comment: Speci men Type: BLOOD SPECIMEN Performed By: #### 2 4323-8, LIPB, 6-3 #### [facility] CLIA [id number] [address] [place] [address] Creatinine [Mass/Vol] 0.63 mg/dL Normal 0.58-0.96 [facility] Comment on above: Order Comment: Speci men Type: BLOOD SPECIMEN Performed By: #### 2 4323-8, LIPB, 6-3 #### [facility] CLIA [id number] [address] [place] [address] GFR/1.73 sq M.predicted MDRD (S/P/Bld) [Vol rate/Area] mL/min/{1.73_m2} Normal [facility] Comment on above: Order Comment: Speci men Type: BLOOD SPECIMEN Result Comment: >60 eGFR (Estimated GFR) Units of measure: mL/min/1.73 meters squared eGFR is derived from the reexpressed MDRD Study equation using the following parameters: serum creatinine, age, gender and race. The creatinine assay has been calibrated to be traceable to IDMS. An eGFR <60 mL/min/1.73m2 for >3 months is consistent with chronic kidney disease. Refer to KDOQI guidelines for clinical interpretation. In patients with unstable renal function, e.g. those with acute kidney injury, the eGFR may not accurately reflect actual GFR. Performed By: #### 2 4323-8, LIPB, 6-3 #### [facility] CLIA [id number] [address] [place] [address] Glucose [Mass/Vol] 86 mg/dL Normal 74-99 [facility] Comment on above: Order Comment: Speci men Type: BLOOD SPECIMEN Result Comment: The [place] Diabetes Association (ADA) provides guidance for cutoff values for fasting glucose and random glucose. The ADA defines fasting as no caloric intake for at least 8 hours. Fasting plasma glucose results between 100 to 125 mg/dL indicate increased risk for diabetes (prediabetes). Fasting plasma glucose results greater than or equal to 126 mg/dL meet the criteria for diagnosis of diabetes. In the absence of unequivocal hyperglycemia, results should be confirmed by repeat testing. In a patient with classic symptoms of hyperglycemia or hyperglycemic crisis, random plasma glucose results greater than or equal to 200 mg/dL meet the criteria for diagnosis of diabetes. Reference: Standards of Medical Care in Diabetes 2016, [place] [employer]. Diabetes Care. 2016.39(Suppl 1). Performed By: #### 2 4323-8, LIPB, 3015-3 #### [facility] CLIA [id number] [address] [place] [address] Potassium [Moles/Vol] 4.0 mmol/L Normal 3.7-5.1 [facility] Comment on above: Order Comment: Speci men Type: BLOOD SPECIMEN Performed By: #### 2 4323-8, LIPB, 6-3 #### [facility] CLIA [id number] [address] [place] [address] Protein [Mass/Vol] 7.6 g/dL Normal 6.3-8.0 [facility] Comment on above: Order Comment: Speci men Type: BLOOD SPECIMEN Performed By: #### 2 4323-8, LIPB, 6-3 #### [facility] CLIA [id number] [address] [place] [address] Sodium [Moles/Vol] 140 mmol/L Normal 136-144 [facility] Comment on above: Order Comment: Speci men Type: BLOOD SPECIMEN Performed By: #### 2 4323-8, LIPB, 6-3 #### [facility] CLIA [id number] [address] [place] [address] Urea nitrogen [Mass/Vol] 8 mg/dL Normal 7-21 [facility] Comment on above: Order Comment: Speci men Type: BLOOD SPECIMEN Performed By: #### 2 4323-8, LIPB, 3016-3 #### [facility] CLIA [id number] [address] [place] [address] HCV Ab Ser Qlon 08-11-2020 HCV Ab Ql (S) Negative Normal Negative [facility] Comment on above: Order Comment: Speci men Type: BLOOD SPECIMEN Performed By: #### 1 6128-1 #### [facility] CLIA [id number] [address] [place] [address] LIPID PANEL BASICon 08-11-20 20 Cholesterol [Mass/Vol] 174 mg/dL Normal <200 [facility] Comment on above: Order Comment: Speci men Type: BLOOD SPECIMEN Result Comment: <200 mg/dL, Desirable 200-239 mg/dL, Borderline high >239 mg/dL, High Performed By: #### 2 4323-8, LIPB, 3016-3 #### [facility] CLIA [id number] [address] [place] [address] Cholesterol in HDL [Mass/Vol] 39 mg/dL Low >39 [facility] Comment on above: Order Comment: Speci men Type: BLOOD SPECIMEN Result Comment: 40-5 9 mg/dL, Acceptable >59 mg/dL, High: Negative risk factor for coronary heart disease <40 mg/dL, Low: Positive risk factor for coronary heart disease Performed By: #### 2 4323-8, LIPB, 3016-3 #### [facility] CLIA [id number] [address] [place] [address] Cholesterol in LDL [Mass/Vol] 91 mg/dL Normal <100 [facility] Comment on above: Order Comment: Speci men Type: BLOOD SPECIMEN Result Comment: <100 mg/dL, Optimal 100-129 mg/dL, Near optimal/above optimal 130-159 mg/dL, Borderline high 160-189 mg/dL, High >189 mg/dL, Very high Secondary prevention optimal LDL Cholesterol levels are recommended to be < 70 mg/dL Performed By: #### 2 4323-8, LIPB, 3016-3 #### [facility] CLIA [id number] [address] [place] [address] Cholesterol in LDL/Cholesterol in HDL [Mass ratio] 2.33 Normal <2.54 [facility] Comment on above: Order Comment: Speci men Type: BLOOD SPECIMEN Result Comment: Refe maria eugeniace: 1. National Cholesterol Education Program ATP III Guideline At-A-Glance Quick Desk Reference: National Heart, Lung, and Blood [place]. National Institutes of Health. 2001: NIH Publication No. 01-3305. 2. An International Atherosclerosis Society position paper: global recommendations for the management of dyslipidemia: executive summary, Atherosclerosis. 2014: 232(2):410-413. Performed By: #### 2 4323-8, LIPB, 6-3 #### [facility] CLIA [id number] [address] [place] [address] Cholesterol in VLDL [Mass/Vol] 44 mg/dL High <30 [facility] Comment on above: Order Comment: Speci men Type: BLOOD SPECIMEN Performed By: #### 2 4323-8, LIPB, 6-3 #### [facility] CLIA [id number] [address] [place] [address] Cholesterol non HDL [Mass/Vol] 135 mg/dL High <130 [facility] Comment on above: Order Comment: Speci men Type: BLOOD SPECIMEN Result Comment: <130 mg/dL, Optimal 130-159 mg/dL, Near optimal/above optimal 160-189 mg/dL, Borderline high 190-219 mg/dL, High >219 mg/dL, Very high Secondary prevention optimal non HDL Cholesterol levels are recommended to be <100 mg/dL Performed By: #### 2 4323-8, LIPB, 3016-3 #### [facility] CLIA [id number] [address] [place] [address] Cholesterol.total/Choles terol in HDL [Mass ratio] 4.46 {ratio} Normal <5.10 [facility] Comment on above: Order Comment: Speci men Type: BLOOD SPECIMEN Performed By: #### 2 4323-8, LIPB, 3016-3 #### [facility] CLIA [id number] [address] [place] [address] FASTING TIME [address] [facility] Comment on above: Order Comment: Speci men Type: BLOOD SPECIMEN Performed By: #### 2 4323-8, LIPB, 3016-3 #### [facility] CLIA [id number] [address] [place] [address] Triglyceride [Mass/Vol] 218 mg/dL High <150 [facility] Comment on above: Order Comment: Speci men Type: BLOOD SPECIMEN Result Comment: <150 mg/dL, Normal 150-199 mg/dL, Borderline high 200-499 mg/dL, High >499 mg/dL, Very high Performed By: #### 2 4323-8, LIPB, 3016-3 #### [facility] CLIA [id number] [address] [place] [address] Metabolic Panelon 08-11-2020 Albumin [Mass/Vol] 4.3 g/dL 3.9 - 4.9 g/dL [facility] ALP [Catalytic activity/Vol] 79 U/L 34 - 123 U/L [facility] Anion gap [Moles/Vol] 10 mmol/L 9 - 18 mmol/L [facility] Bilirubin [Mass/Vol] 0.3 mg/dL 0.2 - 1 .3 mg/dL [facility] Calcium [Mass/Vol] 9.2 mg/dL 8.5 - 10. 2 mg/dL [facility] Chloride [Moles/Vol] 103 mmol/L 97 - 10 5 mmol/L [facility] CO2 [Moles/Vol] 27 mmol/L 22 - 30 mmol/L [facility] Creatinine [Mass/Vol] 0.63 mg/dL 0.58 - 0.96 mg/dL [facility] Glucose [Mass/Vol] 86 mg/dL 74 - 99 mg/dL [facility] Potassium [Moles/Vol] 4.0 mmol/L 3.7 - 5.1 mmol/L [facility] Protein [Mass/Vol] 7.6 g/dL 6.3 - 8.0 g/dL [facility] Sodium [Moles/Vol] 140 mmol/L 136 - 144 mmol/L [facility] Urea nitrogen [Mass/Vol] 8 mg/dL 7 - 21 mg/d L [facility] Otheron 08-11-2020 ALT With P-5'-P [Catalytic activity/Vol] 11 U/L 7 - 38 U/L [facility] AST With P-5'-P [Catalytic activity/Vol] 21 U/L 13 - 35 U/L [facility] Cholesterol in LDL/Cholesterol in HDL [Mass ratio] 2.33 <2.54 [facility] Cholesterol in VLDL [Mass/Vol] 44 mg/dL High <30 mg/dL [facility] Cholesterol non HDL [Mass/Vol] 135 mg/dL High <130 mg/dL [facility] Cholesterol.total/Choles terol in HDL [Mass ratio] 4.46 {ratio} <5.10 [facility] Fasting Time 12 hrs [facility] GFR/1.73 sq M.predicted MDRD (S/P/Bld) [Vol rate/Area] mL/min/{1.73_m2} [facility] PROGRESSon 08-11-2020 PROGRESS HNO ID: [id number] Author: Santo Keith Service: ? Author Type: Physician Type: Progress Notes Filed: 08/11/2020 8:44 PM Note Text: [facility] Medicine Aristeo Keith DO [address] [place] [address] Date of Evaluation: 08/11/2020 Patient Name: Jovita Caban : 1975 Subjective Ms. Caban is a 45 year old female who presents to follow up for Hypothyroidism. The history is provided by the patient. Thyroid Problem Presents for follow-up visit. Symptoms include anxiety. Patient reports no constipation, diarrhea, palpitations or weight loss. Review of Systems Constitutional: Negative for chills, malaise/fatigue and weight loss. HENT: Negative for hearing loss, nosebleeds and tinnitus. Eyes: Negative for blurred vision and double vision. Respiratory: Negative for cough and shortness of breath. Cardiovascular: Negative for chest pain, palpitations, orthopnea, claudication, leg swelling and PND. Gastrointestinal: Negative for abdominal pain, constipation, diarrhea and heartburn. Genitourinary: Negative for frequency and hematuria. Musculoskeletal: Positive for back pain. Negative for joint pain, myalgias and neck pain. Skin: Negative. Neurological: Negative for dizziness, tingling, sensory change, focal weakness and headaches. Endo/Heme/Allergies: Negative for environmental allergies. Does not bruise/bleed easily. Psychiatric/Behavior al: Positive for depression. The patient is nervous/anxious. The patient does not have insomnia. PAST MEDICAL HISTORY Diagnosis Date - Hypothyroidism, unspecified - Idiopathic thrombocytopenic purpura (ITP) (HCC) - OCD (obsessive compulsive disorder) - PCOS (polycystic ovarian syndrome) - Sciatica PAST SURGICAL HISTORY Procedure Laterality Date - ORAL SURGERY PROCEDURE wisdom teeth FAMILY HISTORY Problem Relation Age of Onset - Diabetes Paternal Grandmother - Heart disease Other - Thyroid Other Social History Tobacco Use - Smoking status: Never Smoker - Smokeless tobacco: Never Used Substance Use Topics - Alcohol use: Never Frequency: Never - Drug use: Never Current Meds buPROPion HCL 200 mg 12 hr tablet clonazePAM (KLONOPIN) 0.5 mg tablet Take 1 tablet by mouth once daily. escitalopram oxalate (LEXAPRO) 20 mg tablet SYNTHROID 100 mcg tablet Take 1 tablet by mouth once daily. SYNTHROID 50 mcg tablet Take 1 tablet by mouth once daily. metFORMIN (GLUCOPHAGE) 500 mg tablet Take 1 tablet by mouth once daily. escitalopram oxalate (LEXAPRO) 10 mg tablet Objective BP 108/70 (BP Site: Right Arm, BP Position: Sitting) Pulse 70 Temp 36.1 ?C (96.9 ?F) Ht 5' 6 (1.676 m) Wt 182 lb 9.6 oz (82.8 kg) SpO2 99% BMI 29.47 kg/m? Physical Exam Constitutional: She is oriented to person, place, and time and well-developed, well-nourished, and in no distress. Vital signs are normal. HENT: Head: Normocephalic and atraumatic. Right Ear: Tympanic membrane, external ear and ear canal normal. Left Ear: Tympanic membrane, external ear and ear canal normal. Nose: Nose normal. Mouth/Throat: Oropharynx is clear and moist. Eyes: Pupils are equal, round, and reactive to light. Conjunctivae, EOM and lids are normal. Neck: Normal range of motion. Neck supple. Cardiovascular: Normal rate, regular rhythm, normal heart sounds and intact distal pulses. Pulmonary/Chest: Effort normal and breath sounds normal. Abdominal: Soft. Bowel sounds are normal. There is no abdominal tenderness. Musculoskeletal: Normal range of motion. Neurological: She is alert and oriented to person, place, and time. She has normal reflexes. Gait normal. GCS score is 15. Skin: Skin is warm, dry and intact. Psychiatric: Mood, memory, affect and judgment normal. Nursing note and vitals reviewed. Data Reviewed: No new labs ASSESSMENT/PLAN: 1. Hypothyroidism due to acquired atrophy of thyroid - ICD9: 244.8, 246.8, ICD10: E03.4 (primary diagnosis) - Instructed patient on importance of taking on an empty stomach either first thing in the morning or at bedtime. - check TSH today - TSH BLD 2. Anxiety with depression - ICD9: 300.4, ICD10: F41.8 - Controlled with current medication regimen. - Psychiatry is managing. 3. Other obsessive-compulsive disorders - ICD9: 300.3, ICD10: F42.8 - Psychiatry is managing. 4. Screening for cholesterol level - ICD9: V77.91, ICD10: Z13.220 - COMP METABOLIC PANEL - LIPID PANEL BASIC 5. Special screening examination for viral disease - ICD9: V73.99, ICD10: Z11.59 - HEP C AB IA W/CONF SCRN Return in about 6 months (around 02/09/2021). Santo Keith DO Attestation: Scribe Statement: Avery Bangura am scribing for, and in the presence of, Santo Keith DO August 11, 2020 8:45 AM. Physician Statement: I, Santo Keith DO, personally performed the services described in the documentation, as scribed by Marialuisa Miguel in my presence, and it is both accurate and complete August 11, 2020 9:12 AM. I have confirmed and edited as necessary the past medical, family and social histories, HPI, and ROS obtained by others. Normal [facility] TSH SerPl-aCncon 08-11-2020 TSH Qn 1.150 uU/mL Normal 0.270-4.200 [facility] Comment on above: Order Comment: Speci men Type: BLOOD SPECIMEN Result Comment: If t he patient is , TSH reference range varies by gestational period: First Trimester (weeks 9-12): 0.180-2.990 mcIU/mL Second Trimester: 0.110-3.980 mcIU/mL Third Trimester: 0.480-4.710 mcIU/mL aJyden Nieto et al. A Practical Approach for the Verifications and Determination of Site- and Trimester-Specific Reference Intervals for Thyroid Function tests in . Thyroid, 2019:29:3:412-420. Tato Ott, et al. 2017 Guidelines of the [place] Thyroid [employer] for the Diagnosis and Management of Thyroid Disease during and the . Thyroid, 2017:27:3:315-389. Performed By: #### 2 4323-8, LIPB, 3016-3 #### [facility] CLIA [id number] 1 [place] [address] Thyroidon 08-11-2020 TSH Qn 1.150 uU/mL 0.270 - 4.200 uU/mL [facility] CBC Auto Differentialon 06-0 Absolute Baso # 0.0 10*3/uL 0 - 0.2 10*3/uL [place] Absolute Neut # 3.2 10*3/uL 1.8 - 7 10*3/uL [place] Basophils/100 WBC (Bld) 0.3 % 0 - 2 % [place] Eosinophils (Bld) [#/Vol] 0.0 10*3/uL 0 - 0.5 10*3/uL [place] Eosinophils/100 WBC (Bld) 0.6 % Low 1 - 6 % [place] Erythrocyte distribution width (RBC) [Ratio] 12.4 % 11.5 - 14.5 % [place] Granulocytes/100 WBC (Bld) 58.7 % 40 - 80 % [place] Hematocrit (Bld) [Volume fraction] 41.1 % 35 - 47 % [place] Hemoglobin (Bld) [Mass/Vol] 14.4 g/dL 11.7 - 16 g/dL [place] Interpretation and review of laboratory results Abnormal [place] Lymphocytes (Bld) [#/Vol] 1.7 10*3/uL 1 - 4.3 10*3/uL [place] Lymphocytes/100 WBC (Bld) 31.9 % 20 - 40 % [place] MCH (RBC) [Entitic mass] 31.8 pg 26 - 34 pg [place] MCHC (RBC) [Mass/Vol] 35.0 % 32 - 36 % [place] MCV (RBC) [Entitic vol] 90.9 fL 79 - 98 fL [place] Monocytes (Bld) [#/Vol] 0.5 10*3/uL 0 - 0.8 10*3/uL [place] Monocytes/100 WBC (Bld) 8.5 % 2 - 10 % [place] Platelet mean volume (Bld) [Entitic vol] 8.8 fL 7.4 - 10.4 fL [place] Platelets (Bld) [#/Vol] 222 10*3/uL 140 - 440 10*3/uL [place] RBC (Bld) [#/Vol] 4.52 10*6/uL 3.8 - 5.2 10*6/uL [place] WBC (Bld) [#/Vol] 5.5 10*3/uL 3.6 - 10.7 10*3/uL [place] Test Performed by [facility], [address] , [place] [id number] [place] [address] Hemogram w/ Autodiffon 02-09 Abs Baso Cnt 0.0 10*3/uL Normal 0.0-0.2 [facility] Comment on above: Performed By: #### H EMDF #### [facility] [address] [place] [address] Abs Neutrophile Cnt 3.2 10*3/uL Normal 1.8-7.0 [facility] Comment on above: Performed By: #### H EMDF #### [facility] [address] [place] [address] Basophils/100 WBC (Bld) 0.3 % Normal 0.0-2.0 [facility] Comment on above: Performed By: #### H EMDF #### [facility] [address] [place] [address] Eosinophils (Bld) [#/Vol] 0.0 10*3/uL Normal 0.0-0.5 [facility] Comment on above: Performed By: #### H EMDF #### [facility] [address] [place] [address] Eosinophils/100 WBC (Bld) 0.6 % Low 1.0-6.0 [facility] Comment on above: Performed By: #### H EMDF #### [facility] [address] [place] [address] Erythrocyte distribution width (RBC) [Ratio] 12.4 % Normal 11.5-14.5 [facility] Comment on above: Performed By: #### H EMDF #### [facility] [address] [place] [address] Granulocytes/100 WBC (Bld) 58.7 % Normal 40.0-80.0 [facility] Comment on above: Performed By: #### H EMDF #### [facility] [address] [place] [address] Hematocrit (Bld) [Volume fraction] 41.1 % Normal 35.0-47.0 [facility] Comment on above: Performed By: #### H EMDF #### [facility] [address] [place] [address] Hemoglobin (Bld) [Mass/Vol] 14.4 g/dL Normal 11.7-16.0 [facility] Comment on above: Performed By: #### H EMDF #### [facility] [address] [place] [address] Lymphocytes (Bld) [#/Vol] 1.7 10*3/uL Normal 1.0-4.3 [facility] Comment on above: Performed By: #### H EMDF #### [facility] [address] [place] [address] Lymphocytes/100 WBC (Bld) 31.9 % Normal 20.0-40.0 [facility] Comment on above: Performed By: #### H EMDF #### [facility] [address] [place] [address] MCH (RBC) [Entitic mass] 31.8 pg Normal 26.0-34.0 [facility] Comment on above: Performed By: #### H EMDF #### [facility] [address] [place] [address] MCHC (RBC) [Mass/Vol] 35.0 % Normal 32.0-36.0 [facility] Comment on above: Performed By: #### H EMDF #### [facility] [address] [place] [address] MCV (RBC) [Entitic vol] 90.9 fL Normal 79.0-98.0 [facility] Comment on above: Performed By: #### H EMDF #### [facility] [address] [place] [address] Monocytes (Bld) [#/Vol] 0.5 10*3/uL Normal 0.0-0.8 [facility] Comment on above: Performed By: #### H EMDF #### [facility] [address] [place] [address] Monocytes/100 WBC (Bld) 8.5 % Normal 2.0-10.0 [facility] Comment on above: Performed By: #### H EMDF #### [facility] [address] [place] [address] Platelet mean volume (Bld) [Entitic vol] 8.8 fL Normal 7.4-10.4 [facility] Comment on above: Performed By: #### H EMDF #### [facility] [address] [place] [address] Platelets (Bld) [#/Vol] 222 10*3/uL Normal 140-440 [facility] Comment on above: Performed By: #### H EMDF #### [facility] [address] [place] [address] RBC (Bld) [#/Vol] 4.52 10*6/uL Normal 3.80-5.20 [facility] Comment on above: Performed By: #### H EMDF #### [facility] [address] [place] [address] WBC (Bld) [#/Vol] 5.5 10*3/uL Normal 3.6-10.7 [facility] Comment on above: Performed By: #### H EMDF #### [facility] [address] [place] [address] VL Lower Extremity Bilateral Venous Duplexon 11-04-2019 [facility] Lower Extremity Venous Duplex Report Ordering Physician: Latasha Staley Solar Thermal Technician: Rosmery Sterling Interpreting Physician: Rita Biggs MD Location: [facility] Indications: Pain right calf. Preliminary result was reported to [facility] - Office , by Rosmery Sterling , on 11/04/2019 , at 05:09 PM. Conclusions 1. There is no evidence of acute deep or superficial venous thrombosis noted in the right lower extremity. 2. There is no evidence of acute deep or superficial venous thrombosis noted in the left lower extremity. History: Risk factors: Patient sees Dr Staley for a blood disorder Study data: Complete lower extremity venous duplex evaluation. Grayscale 2D imaging, color Doppler imaging, and spectral Doppler analysis. Location: Vascular laboratory. Objective: Diagnostic evaluation. Procedure: A vascular evaluation was performed with the patient in the supine position. Images were obtained using a [employer] E9 vascular ultrasound machine. Venous flow and imaging: + ------+-------+----- + +Location +Overall+Properties + + ------+-------+----- + +R CFV +Patent +Normal phasicity; spontaneous; + + + +normal augmentation; compressible + + ------+-------+----- + +R saphenofemoral junction+Patent +Compressible + + ------+-------+----- + +R profunda femoral +Patent +Normal phasicity; spontaneous; + + + +normal augmentation + + ------+-------+----- + +R FV - prox. +Patent +Compressible + + ------+-------+----- + +R FV - mid +Patent +Normal phasicity; spontaneous; + + + +normal augmentation; compressible + + ------+-------+----- + +R FV - distal +Patent +Compressible + + ------+-------+----- + +R popliteal +Patent +Normal phasicity; spontaneous; + + + +normal augmentation; compressible + + ------+-------+----- + +R gastrocnemius +Patent +Compressible + + ------+-------+----- + +R PTV +Patent +Compressible + + ------+-------+----- + +R peroneal +Patent +Compressible + + ------+-------+----- + +R soleol +Patent +Compressible + + ------+-------+----- + +R GSV +Patent +Compressible + + ------+-------+----- + +L CFV +Patent +Normal phasicity; spontaneous; + + + +normal augmentation; compressible + + ------+-------+----- + +L saphenofemoral junction+Patent +Compressible + + ------+-------+----- + +L profunda femoral +Patent +Normal phasicity; spontaneous; + + + +normal augmentation + + ------+-------+----- + +L FV - prox. +Patent +Compressible + + ------+-------+----- + +L FV - mid +Patent +Normal phasicity; spontaneous; + + + +normal augmentation; compressible + + ------+-------+----- + +L FV - distal +Patent +Compressible + + ------+-------+----- + +L popliteal +Patent +Normal phasicity; spontaneous; + + + +normal augmentation; compressible + + ------+-------+----- + +L gastrocnemius +Patent +Compressible + + ------+-------+----- + +L PTV +Patent +Compressible + + ------+-------+----- + +L peroneal +Patent +Compressible + + ------+-------+----- + +L soleol +Patent +Compressible + + ------+-------+----- + +L GSV +Patent +Compressible + + ------+-------+----- + Prepared and electronically signed by Rita Biggs MD 11/04/2019 17:23 [facility] [place] Results From [facility] - 11/04/2019 5:[address] [facility] Lower Extremity Venous Duplex Report Ordering Physician: Latasha Staley Solar Thermal Technician: Rosmery Sterling Interpreting Physician: Rita Biggs MD Location: [facility] Indications: Pain right calf. Preliminary result was reported to [facility] - Office , by Rosmery Sterling on 11/04/2019 , at 05:09 PM. Conclusions 1. There is no evidence of acute deep or superficial venous thrombosis noted in the right lower extremity. 2. There is no evidence of acute deep or superficial venous thrombosis noted in the left lower extremity. History: Risk factors: Patient sees Dr Staley for a blood disorder Study data: Complete lower extremity venous duplex evaluation. Grayscale 2D imaging, color Doppler imaging, and spectral Doppler analysis. Location: Vascular laboratory. Objective: Diagnostic evaluation. Procedure: A vascular evaluation was performed with the patient in the supine position. Images were obtained using a [employer] E9 vascular ultrasound machine. Venous flow and imaging: + ------+-------+----- + +Location +Overall+Properties + + ------+-------+----- + +R CFV +Patent +Normal phasicity; spontaneous; + + + +normal augmentation; compressible + + ------+-------+----- + +R saphenofemoral junction+Patent +Compressible + + ------+-------+----- + +R profunda femoral +Patent +Normal phasicity; spontaneous; + + + +normal augmentation + + ------+-------+----- + +R FV - prox. +Patent +Compressible + + ------+-------+----- + +R FV - mid +Patent +Normal phasicity; spontaneous; + + + +normal augmentation; compressible + + ------+-------+----- + +R FV - distal +Patent +Compressible + + ------+-------+----- + +R popliteal +Patent +Normal phasicity; spontaneous; + + + +normal augmentation; compressible + + ------+-------+----- + +R gastrocnemius +Patent +Compressible + + ------+-------+----- + +R PTV +Patent +Compressible + + ------+-------+----- + +R peroneal +Patent +Compressible + + ------+-------+----- + +R soleol +Patent +Compressible + + ------+-------+----- + +R GSV +Patent +Compressible + + ------+-------+----- + +L CFV +Patent +Normal phasicity; spontaneous; + + + +normal augmentation; compressible + + ------+-------+----- + +L saphenofemoral junction+Patent +Compressible + + ------+-------+----- + +L profunda femoral +Patent +Normal phasicity; spontaneous; + + + +normal augmentation + + ------+-------+----- + +L FV - prox. +Patent +Compressible + + ------+-------+----- + +L FV - mid +Patent +Normal phasicity; spontaneous; + + + +normal augmentation; compressible + + ------+-------+----- + +L FV - distal +Patent +Compressible + + ------+-------+----- + +L popliteal +Patent +Normal phasicity; spontaneous; + + + +normal augmentation; compressible + + ------+-------+----- + +L gastrocnemius +Patent +Compressible + + ------+-------+----- + +L PTV +Patent +Compressible + + ------+-------+----- + +L peroneal +Patent +Compressible + + ------+-------+----- + +L soleol +Patent +Compressible + + ------+-------+----- + +L GSV +Patent +Compressible + + ------+-------+----- + Prepared and electronically signed by Rita Biggs MD 11/04/2019 17:23 [place] VL Venous Duplex US Lower Ex t Bilateralon 11-04-2019 VL Venous Duplex US Lower Ext Bilateral Patient Name: JOVITA CABAN Ultrasound Exam Date/Time 11/04/2019 15:51:12 EST Exam VL Venous Duplex US Lower Ext Bilateral Ordering Physician LATASHA STALEY Accession Number [id number] CPT4 Codes [id number] () Reason For Exam Bilateral pain and edema Report [facility] Lower Extremity Venous Duplex Report Ordering Physician: Latasha Staley Solar Thermal Technician: Rosmery Sterling Interpreting Physician: Rita Biggs MD Location: [facility] Indications: Pain right calf. Preliminary result was reported to [facility] - Office , by Rosmery Sterling , on 11/04/2019 , at 05:09 PM. Conclusions 1. There is no evidence of acute deep or superficial venous thrombosis noted in the right lower extremity. 2. There is no evidence of acute deep or superficial venous thrombosis noted in the left lower extremity. History: Risk factors: Patient sees Dr Staley for a blood disorder Study data: Complete lower extremity venous duplex evaluation. Grayscale 2D imaging, color Doppler imaging, and spectral Doppler analysis. Location: Vascular laboratory. Objective: Diagnostic evaluation. Procedure: A vascular evaluation was performed with the patient in the supine position. Images were obtained using a [employer] E9 vascular ultrasound machine. Venous flow and imaging: + ------+-------+----- + +Location +Overall+Properties + + ------+-------+----- + +R CFV +Patent +Normal phasicity; spontaneous; + + + +normal augmentation; compressible + + ------+-------+----- + +R saphenofemoral junction+Patent +Compressible + + ------+-------+----- + +R profunda femoral +Patent +Normal phasicity; spontaneous; + + + +normal augmentation + + ------+-------+----- + +R FV - prox. +Patent +Compressible + + ------+-------+----- + +R FV - mid +Patent +Normal phasicity; spontaneous; + + + +normal augmentation; compressible + + ------+-------+----- + +R FV - distal +Patent +Compressible + + ------+-------+----- + +R popliteal +Patent +Normal phasicity; spontaneous; + + + +normal augmentation; compressible + + ------+-------+----- + +R gastrocnemius +Patent +Compressible + + ------+-------+----- + +R PTV +Patent +Compressible + + ------+-------+----- + +R peroneal +Patent +Compressible + + ------+-------+----- + +R soleol +Patent +Compressible + + ------+-------+----- + +R GSV +Patent +Compressible + + ------+-------+----- + +L CFV +Patent +Normal phasicity; spontaneous; + + + +normal augmentation; compressible + + ------+-------+----- + +L saphenofemoral junction+Patent +Compressible + + ------+-------+----- + +L profunda femoral +Patent +Normal phasicity; spontaneous; + + + +normal augmentation + + ------+-------+----- + +L FV - prox. +Patent +Compressible + + ------+-------+----- + +L FV - mid +Patent +Normal phasicity; spontaneous; + + + +normal augmentation; compressible + + ------+-------+----- + +L FV - distal +Patent +Compressible + + ------+-------+----- + +L popliteal +Patent +Normal phasicity; spontaneous; + + + +normal augmentation; compressible + + ------+-------+----- + +L gastrocnemius +Patent +Compressible + + ------+-------+----- + +L PTV +Patent +Compressible + + ------+-------+----- + +L peroneal +Patent +Compressible + + ------+-------+----- + +L soleol +Patent +Compressible + + ------+-------+----- + +L GSV +Patent +Compressible + + ------+-------+----- + Prepared and electronically signed by Rita Biggs MD 11/04/2019 17:23 Final Dictated: 11/04/2019 5:23 pm Dictating Physician: RITA BIGGS Signed Date and Time: 11/04/2019 5:23 pm Signed by: RITA BIGGS Normal [facility] Hemogram w/ Autodiffon 08-27 Abs Baso Cnt 0.0 10*3/uL Normal 0.0-0.2 [facility] Comment on above: Performed By: #### H EMDF #### [facility] [address] [place] [address] Abs Neutrophile Cnt 2.7 10*3/uL Normal 1.8-7.0 [facility] Comment on above: Performed By: #### H EMDF #### [facility] [address] [place] [address] Basophils/100 WBC (Bld) 0.5 % Normal 0.0-2.0 [facility] Comment on above: Performed By: #### H EMDF #### [facility] [address] [place] [address] Eosinophils (Bld) [#/Vol] 0.0 10*3/uL Normal 0.0-0.5 [facility] Comment on above: Performed By: #### H EMDF #### [facility] [address] [place] [address] Eosinophils/100 WBC (Bld) 1.0 % Normal 1.0-6.0 [facility] Comment on above: Performed By: #### H EMDF #### [facility] [address] [place] [address] Erythrocyte distribution width (RBC) [Ratio] 12.7 % Normal 11.5-14.5 [facility] Comment on above: Performed By: #### H EMDF #### [facility] [address] [place] [address] Granulocytes/100 WBC (Bld) 57.9 % Normal 40.0-80.0 [facility] Comment on above: Performed By: #### H EMDF #### [facility] [address] [place] [address] Hematocrit (Bld) [Volume fraction] 43.3 % Normal 35.0-47.0 [facility] Comment on above: Performed By: #### H EMDF #### [facility] [address] [place] [address] Hemoglobin (Bld) [Mass/Vol] 14.7 g/dL Normal 11.7-16.0 [facility] Comment on above: Performed By: #### H EMDF #### [facility] [address] [place] [address] Lymphocytes (Bld) [#/Vol] 1.5 10*3/uL Normal 1.0-4.3 [facility] Comment on above: Performed By: #### H EMDF #### [facility] [address] [place] [address] Lymphocytes/100 WBC (Bld) 32.5 % Normal 20.0-40.0 [facility] Comment on above: Performed By: #### H EMDF #### [facility] [address] [place] [address] MCH (RBC) [Entitic mass] 31.1 pg Normal 26.0-34.0 [facility] Comment on above: Performed By: #### H EMDF #### [facility] [address] [place] [address] MCHC (RBC) [Mass/Vol] 34.1 % Normal 32.0-36.0 [facility] Comment on above: Performed By: #### H EMDF #### [facility] [address] [place] [address] MCV (RBC) [Entitic vol] 91.2 fL Normal 79.0-98.0 [facility] Comment on above: Performed By: #### H EMDF #### [facility] [address] [place] [address] Monocytes (Bld) [#/Vol] 0.4 10*3/uL Normal 0.0-0.8 [facility] Comment on above: Performed By: #### H EMDF #### [facility] [address] [place] [address] Monocytes/100 WBC (Bld) 8.1 % Normal 2.0-10.0 [facility] Comment on above: Performed By: #### H EMDF #### [facility] [address] [place] [address] Platelet mean volume (Bld) [Entitic vol] 9.7 fL Normal 7.4-10.4 [facility] Comment on above: Performed By: #### H EMDF #### [facility] [address] [place] [address] Platelets (Bld) [#/Vol] 231 10*3/uL Normal 140-440 [facility] Comment on above: Performed By: #### H EMDF #### [facility] [address] [place] [address] RBC (Bld) [#/Vol] 4.74 10*6/uL Normal 3.80-5.20 [facility] Comment on above: Performed By: #### H EMDF #### [facility] [address] [place] [address] WBC (Bld) [#/Vol] 4.6 10*3/uL Normal 3.6-10.7 [facility] Comment on above: Performed By: #### H EMDF #### [facility] [address] [place] [address] CBC Auto Differentialon 04-11 Absolute Baso # 0.0 10*3/uL 0 - 0.2 10*3/uL [place] Absolute Neut # 1.8 10*3/uL 1.8 - 7 10*3/uL [place] [employer] Basophils/100 WBC (Bld) 0.7 % 0 - 2 % [place] Eosinophils (Bld) [#/Vol] 0.0 10*3/uL 0 - 0.5 10*3/uL [place] Eosinophils/100 WBC (Bld) 0.6 % Low 1 - 6 % [place] Erythrocyte distribution width (RBC) [Ratio] 12.5 % 11.5 - 14.5 % [place] Granulocytes/100 WBC (Bld) 38.2 % Low 40 - 80 % [place] Hematocrit (Bld) [Volume fraction] 40.0 % 35 - 47 % [place] Hemoglobin (Bld) [Mass/Vol] 13.7 g/dL 11.7 - 16 g/dL [place] Interpretation and review of laboratory results Abnormal [place] Lymphocytes (Bld) [#/Vol] 2.4 10*3/uL 1 - 4.3 10*3/uL [place] Lymphocytes/100 WBC (Bld) 51.0 % High 20 - 40 % [place] MCH (RBC) [Entitic mass] 31.2 pg 26 - 34 pg [place] MCHC (RBC) [Mass/Vol] 34.2 % 32 - 36 % [place] MCV (RBC) [Entitic vol] 91.4 fL 79 - 98 fL [place] Monocytes (Bld) [#/Vol] 0.4 10*3/uL 0 - 0.8 10*3/uL [place] Monocytes/100 WBC (Bld) 9.5 % 2 - 10 % [place] Platelet mean volume (Bld) [Entitic vol] 10.5 fL High 7.4 - 10.4 fL [place] Platelets (Bld) [#/Vol] 216 10*3/uL 140 - 440 10*3/uL [place] RBC (Bld) [#/Vol] 4.37 10*6/uL 3.8 - 5.2 10*6/uL [place] WBC (Bld) [#/Vol] 4.7 10*3/uL 3.6 - 10.7 10*3/uL [place] Test Performed by [facility], [address] , [place], [place] [id number] [place] [address] Hemogram w/ Autodiffon 04-23 Abs Baso Cnt 0.0 10*3/uL Normal 0.0-0.2 [facility] Comment on above: Performed By: #### H EMDF #### [facility] [address] [place] [address] Abs Neutrophile Cnt 1.8 10*3/uL Normal 1.8-7.0 [facility] Comment on above: Performed By: #### H EMDF #### [facility] [address] [place] [address] Basophils/100 WBC (Bld) 0.7 % Normal 0.0-2.0 [facility] Comment on above: Performed By: #### H EMDF #### [facility] [address] [place] [address] Eosinophils (Bld) [#/Vol] 0.0 10*3/uL Normal 0.0-0.5 [facility] Comment on above: Performed By: #### H EMDF #### [facility] [address] [place] [address] Eosinophils/100 WBC (Bld) 0.6 % Low 1.0-6.0 [facility] Comment on above: Performed By: #### H EMDF #### [facility] [address] [place] [address] Erythrocyte distribution width (RBC) [Ratio] 12.5 % Normal 11.5-14.5 [facility] Comment on above: Performed By: #### H EMDF #### [facility] [address] [place] [address] Granulocytes/100 WBC (Bld) 38.2 % Low 40.0-80.0 [facility] Comment on above: Performed By: #### H EMDF #### [facility] [address] [place] [address] Hematocrit (Bld) [Volume fraction] 40.0 % Normal 35.0-47.0 [facility] Comment on above: Performed By: #### H EMDF #### [facility] [address] [place] [address] Hemoglobin (Bld) [Mass/Vol] 13.7 g/dL Normal 11.7-16.0 [facility] Comment on above: Performed By: #### H EMDF #### [facility] [address] [place] [address] Lymphocytes (Bld) [#/Vol] 2.4 10*3/uL Normal 1.0-4.3 [facility] Comment on above: Performed By: #### H EMDF #### [facility] [address] [place] [address] Lymphocytes/100 WBC (Bld) 51.0 % High 20.0-40.0 [facility] Comment on above: Performed By: #### H EMDF #### [facility] [address] [place] [address] MCH (RBC) [Entitic mass] 31.2 pg Normal 26.0-34.0 [facility] Comment on above: Performed By: #### H EMDF #### [facility] [address] [place] [address] MCHC (RBC) [Mass/Vol] 34.2 % Normal 32.0-36.0 [facility] Comment on above: Performed By: #### H EMDF #### [facility] [address] [place] [address] MCV (RBC) [Entitic vol] 91.4 fL Normal 79.0-98.0 [facility] Comment on above: Performed By: #### H EMDF #### [facility] [address] [place] [address] Monocytes (Bld) [#/Vol] 0.4 10*3/uL Normal 0.0-0.8 [facility] Comment on above: Performed By: #### H EMDF #### [facility] [address] [place] [address] Monocytes/100 WBC (Bld) 9.5 % Normal 2.0-10.0 [facility] Comment on above: Performed By: #### H EMDF #### [facility] [address] [place] [address] Platelet mean volume (Bld) [Entitic vol] 10.5 fL High 7.4-10.4 [facility] Comment on above: Performed By: #### H EMDF #### [facility] [address] [place] [address] Platelets (Bld) [#/Vol] 216 10*3/uL Normal 140-440 [facility] Comment on above: Performed By: #### H EMDF #### [facility] [address] [place] [address] RBC (Bld) [#/Vol] 4.37 10*6/uL Normal 3.80-5.20 [facility] Comment on above: Performed By: #### H EMDF #### [facility] [address] [place] [address] WBC (Bld) [#/Vol] 4.7 10*3/uL Normal 3.6-10.7 [facility] Comment on above: Performed By: #### H EMDF #### [facility] [address] [place] [address] Vital Signs Date Time Vital Sign Value Performing Clinician Facility 10-19-2022 20:56-0500 Diastolic blood pressure 74 mm[Hg] Darien Gombash DO Work Phone: [facility] 10-19-2022 20:56-0500 Heart rate 74 /min Darien Gombash DO Work Phone: [facility] 10-19-2022 20:56-0500 Respiratory rate 14 /min Darien Gombash DO Work Phone: [facility] 10-19-2022 20:56-0500 SaO2% (BldA) [Mass fraction] 100 % Darien Gombash DO Work Phone: [facility] 10-19-2022 20:56-0500 Systolic blood pressure 119 mm[Hg] Darien Gombash DO Work Phone: [facility] 10-19-2022 19:34-0500 Body height 165.1 cm Darien Gombash DO Work Phone: [facility] 10-19-2022 19:34-0500 Body mass index (BMI) [Ratio] 30.79 kg/m2 Darien Gombash DO Work Phone: [facility] 10-19-2022 19:34-0500 Body temperature 97.3 [degF] Darien Gombash DO Work Phone: [facility] 10-19-2022 19:34-0500 Body weight 83.92 kg Darien Gombash DO Work Phone: [facility] 08-15-2022 09:02-0500 Body height 167.[address] Rita Maher Work Phone: [facility] 08-15-2022 09:02-0500 Body mass index (BMI) [Ratio] 29.3 kg/m2 Dr. Rita Maher Work Phone: [facility] 08-15-2022 09:02-0500 Body weight 82.[address] Rita Maher Work Phone: [facility] 08-15-2022 09:02-0500 Diastolic blood pressure 77 mm[Hg] Dr. Rita Maher Work Phone: [facility] 08-15-2022 09:02-0500 Respiratory rate 18 /min Dr. Rita Maher Work Phone: [facility] 08-15-2022 09:02-0500 Systolic blood pressure 117 mm[Hg] Dr. Rita Maher Work Phone: [facility] 08-11-2020 08:32-0500 Body Temperature 96.91 [facility]degF[facility] 08:32-0500 Body weight 82.83 kg [facility] 08-11-2020 08:32-0500 BP Diastolic 70 mm[Hg] [facility] 08-11-2020 08:32-0500 BP Systolic 108 mm[Hg] [facility] 08-11-2020 08:32-0500 Height 167.6 cm [facility] 08-11-2020 08:32-0500 Pulse (Heart Rate) 70 /min [facility] 08-11-2020 08:32-0500 Pulse Oximetry 99 % [facility] 05-04-2020 09:51-0400 Body Temperature 98.4 [degF] [facility] 05-04-2020 09:51-0400 Body weight 82.56 kg [facility] 05-04-2020 09:51-0400 BP Diastolic 66 mm[Hg] [facility] 05-04-2020 09:51-0400 BP Systolic 108 mm[Hg] [facility] 05-04-2020 09:51-0400 Height 167.6 cm [facility] 05-04-2020 09:51-0400 Pulse (Heart Rate) 80 /min [facility] 05-04-2020 09:51-0400 Pulse Oximetry 98 % [facility] 05-04-2020 09:51-0400 Respiratory Rate 24 /min [facility] sara Encounters Encounter Date Encounter Type Care Provider Facility Start: 03-04-2025 End: 03-04-2025 Emergency department patient visit Garry Anthony Facility:[facility] Start: 02-04-2025 End: 02-04-2025 ambulatory Elmer Pickard Facility:[facility] Start: 01-07-2025 End: 01-07-2025 ambulatory Rita Maher Facility:[facility] Start: 11-04-2024 End: 11-04-2024 ambulatory Elmer Pickard Facility:[facility] Start: 09-24-2024 End: 09-24-2024 ambulatory Elmer Pickard Facility:[facility] Start: 08-23-2024 End: 08-23-2024 ambulatory Rita Maher Facility:[facility] Start: 08-12-2024 End: 08-12-2024 ambulatory Elmer Pickard Facility:[facility] Start: 08-12-2024 End: 08-12-2024 ambulatory Rita Maher Facility:[facility] Start: 05-31-2024 End: 05-31-2024 ambulatory Latasha Staley MD Work Phone: [facility] Comment on above: Thrombocytopenia (HC C) Start: 03-22-2024 End: 03-22-2024 ambulatory Rita Maher Facility:[facility] Start: 01-10-2024 Non-patient / Non-visit Dr. Shyanne Maher Work Phone: [facility] Start: 01-10-2024 End: 01-10-[address] Rita Maher Work Phone: [facility] Work Phone: Start: 01-10-2024 End: 01-10-[address] Rita Maher Work Phone: [facility] Work Phone: Start: 12-22-2023 End: 12-22-2023 ambulatory [facility] Work Phone: Start: 12-22-2023 End: 12-22-2023 Patient encounter procedure [facility] Start: 11-30-2023 End: 11-30-2023 ambulatory [facility] Work Phone: Start: 11-30-2023 End: 11-30-2023 Patient encounter procedure [facility] Work Phone: Start: 08-15-2023 End: 08-15-2023 ambulatory [facility] Work Phone: Start: 08-15-2023 End: 08-15-2023 Patient encounter procedure [facility] Work Phone: Start: 06-16-2023 End: 06-16-2023 Patient encounter procedure [facility] Work Phone: Start: 06-06-2023 End: 06-06-2023 ambulatory [facility] Work Phone: Start: 06-06-2023 End: 06-06-2023 Patient encounter procedure [facility] Start: 05-10-2023 End: 05-10-2023 ambulatory [facility] Work Phone: Start: 05-10-2023 End: 05-10-2023 Patient encounter procedure [facility] Work Phone: Start: 02-10-2023 End: 02-10-2023 ambulatory [facility] Work Phone: Start: 02-10-2023 End: 02-10-2023 Patient encounter procedure [facility] Start: 12-01-2022 End: 12-01-[address] Rita Maher Work Phone: [facility] Work Phone: Start: 12-01-2022 End: 12-01-[address] Rita Maher Work Phone: [facility] Start: 11-17-2022 End: 11-17-[address] Rita Maher Work Phone: [facility] Work Phone: Start: 11-17-2022 End: 11-17-[address] Rita Maher Work Phone: [facility] Start: 10-19-2022 End: 10-19-2022 Subsequent hospital visit by physician [facility] Exam Room [address] [facility] [address] Comment on above: Arrived Start: 10-19-2022 End: 10-19-2022 Emergency department patient visit Darien Ziegler DO Work Phone: [facility] Comment on above: Nonintractable episo dic headache, unspecified headache type (Primary Dx); Nausea and vomiting, unspecified vomiting type; Chest pain, unspecified type Start: 08-15-2022 End: 08-15-[address] Rita Maher Work Phone: [facility] Start: 07-29-2022 End: 07-29-2022 ambulatory [facility] Work Phone: Start: 07-29-2022 End: 07-29-2022 Patient encounter procedure [facility] Start: 07-11-2022 End: 07-11-2022 ambulatory [facility] Work Phone: Start: 07-11-2022 End: 07-11-2022 Patient encounter procedure [facility] Start: 03-17-2022 End: 03-17-2022 Patient encounter procedure [facility] Start: 09-18-2020 End: 09-18-2020 Refill Santo Keith Work Phone: [facility] Comment on above: Refill Request Start: 08-11-2020 End: 08-11-2020 Patient encounter procedure Santo Keith Work Phone: [facility] Comment on above: 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 Start: 02-10-2020 End: 02-10-2020 Subsequent hospital visit by physician Latasha Staley Work Phone: [facility] Start: 11-04-2019 End: 11-04-2019 Subsequent hospital visit by physician Latasha Staley Work Phone: [facility] Comment on above: Arrived Start: 04-23-2019 End: 04-23-2019 Subsequent hospital visit by physician Latasha Staley Work Phone: [facility] Procedures Date Procedure Procedure Detail Performing Clinician Start: 05-31-2024 Blood count complete auto&auto difrntl wbc Latasha Staley MD Work Phone: Start: 08-15-2023 US scan of thyroid Start: 05-10-2023 End: 05-10-2023 Screening mammography Start: 02-10-2023 US scan of thyroid Start: 11-17-2022 MRI of brain with contrast Dr. Rita Maher Work Phone: Start: 10-19-2022 Ct head/brain w/o co ntrast material Darien A Gombash DO Work Phone: Start: 10-19-2022 Radiologic exam ches t single view Darien A Gombash DO Work Phone: Start: 10-19-2022 SARS-COV-2, FLU A/B, AND RSV COMBO Darien A Gombash DO Work Phone: Start: 10-19-2022 Comprehensive metabo lic panel Darien A Gombash DO Work Phone: Start: 10-19-2022 Ecg routine ecg w/le ast 12 lds trcg only w/o i&r Darien A Gombash DO Work Phone: Start: 07-29-2022 US scan of thyroid Start: 02-10-2020 Blood count complete auto&auto difrntl wbc Latasha Staley Work Phone: Start: 11-04-2019 Dup-scan xtr veins c omplete bilateral study Latasha Luciano Luís Work Phone: Start: 04-23-2019 Blood count complete auto&auto difrntl wbc Latasha Staley Work Phone: Plan of Treatment Date Care Activity Detail Author Start: 2037 RSV Immunization age d 60 or older (1 - 1-dose 60+ series) RSV Immunization aged 60 or older (1 - 1-dose 60+ series) [facility] Start: 2027 Shingles Vaccine (1 of 2) Shingles Vaccine (1 of 2) [employer] [employer] Start: 2027 Zoster Vaccines (1 of 2) Zoste r Vaccines (1 of 2) [facility] Start: 05-12-2024 COVID-19 Vaccine ( season) COVID-19 Vaccine ( season) [facility] Start: 05-12-2024 Influenza vaccination Influenza Vacc ine (#1) [facility] Start: 05-10-2024 Screening for malign ant neoplasm of breast Mammogram [facility] Start: 07-07-2022 Lipid panel Lipid screen [place] Start: 07-07-2022 Lipid screen Lipid screen [place] Start: 05-12-2020 Influenza vaccination Flu vacc ine (Season Ended) [employer] [employer] Start: 05-12-2019 Influenza vaccination Flu vaccine (# 1) [employer] [employer] Start: 2017 Mammography MAMMOGRAM [facility] Start: 2017 Screening for malign ant neoplasm of breast Mammogram [facility] Start: 2007 HPV TESTING HPV TESTING [facility] Start: 2007 Screening for malign ant neoplasm of cervix [facility] Start: 1998 Cervical cancer screen Cervical canc er screen [employer] Start: 1998 PAP TESTING PAP TESTING [facility] Start: 1998 Screening for malign ant neoplasm of cervix [facility] Start: 1996 DTaP/Tdap/Td vaccine (1 - Tdap) DTaP/Tdap/Td vaccine (1 - Tdap) [employer] Start: 1996 DTaP/Tdap/Td Vaccine s (1 - Tdap) DTaP/Tdap/Td Vaccines (1 - Tdap) [facility] Start: 1996 Hepatitis B Vaccines (1 of 3 - 19+ 3-dose series) Hepatitis B Vaccines (1 of 3 - 19+ 3-dose series) 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 Start: 1995 HEPATITIS C SCREENING HEPATITIS C [facility] Start: 1995 Hepatitis C screening Hepatitis C [facility] Start: 1995 HIV SCREENING HIV SCREENING [facility] Start: 1989 Adult depression screening assessment DEPRESSION SCREENING [facility] Start: 1988 DTaP/Tdap/Td vaccine (1 - Tdap) DTaP/Tdap/Td vaccine (1 - Tdap) [employer] Start: 1978 MMR Vaccines (1 of 1 - Standard series) MMR Vaccines (1 of 1 - Standard series) [facility] Start: 1977 Hepatitis B Vaccines (1 of 3 - 3-dose series) Hepatitis B Vaccines (1 of 3 - 3-dose series) [facility] Start: 1977 HIV screening HIV Screening [facility] Start: 1977 Screening for malign ant neoplasm of colon [facility] Start: 1977 Thyroid stimulating hormone measurement TSH Level [facility] End: 08-11-2021 HCV Ab Ql (S) HEP C AB IA W/CONF SCRN Lab Routine Special screening examination for viral disease 1 Occurrences starting 08/11/2020 until 08/11/2021 [facility] Comment on above: 1 Occurrences starti ng 08/11/2020 until 08/11/2021 HCV Ab Ql (S) HEP C AB IA W/CO NF SCRN Lab Routine Special screening examination for viral disease 08/11/2020 9:26 AM EST [facility] US Thyroid gland Joe Com [facility] Immunizations Immunization Date Immunization Notes Care Provider Gurpreet rodriguez 07-19-2022 influenza virus vacc ine, unspecified formulation Shavon [address] [facility] 05-25-2020 influenza, injectabl e, quadrivalent, preservative free [facility] 05-22-2019 influenza, injectabl e, quadrivalent, contains preservative [facility] 05-22-2019 influenza, injectabl e, quadrivalent, preservative free [facility] 06-27-2018 influenza, injectabl e, quadrivalent, preservative free [facility] Payers Date Payer Category Payer Self-pay [id number] 2022 Unknown [employer] [id number] 2022-Present [address] [place] [address] Exchange Plan [id number] 2022 Unknown [id number] 2019 Unknown ORTIZ WILLIS MAYA O NARENDRA [id number] 2019-Present O [id number] 2018 Unknown [employer] [address] xxxxxxxxxxxx 2018-Present [phone] [address] [place] [address] xxxxxxxxxxxx [id number] 2015 Private Health Insurance [facility] [employer] xxxxxxxxx 2015-Present [phone] [address] [place] [address] xxxxxxxxx [id number] Unknown [id number] Unknown [id number] Unknown [id number] Unknown [id number] Unknown [id number] Unknown [id number] Unknown [id number] Unknown [id number] Unknown [id number] Social History Date Type Detail Facility Start: 10-26-2019 End: 07-10-2020 Tobacco smoking status NHIS Never smoker [employer] Start: 07-10-2020 End: 08-11-2020 Tobacco use and exposure Never used [facility] Start: 07-10-2020 End: 08-11-2020 Alcohol intake Lifetime non-drinker (finding) [facility] Start: 07-10-2020 History SDOH Alcohol Frequency 1 [facility] Start: 1975 Sex Assigned At Not on file [place] Start: 10-09-2022 End: 10-19-2022 Exposure to SARS-CoV-2 (event) Not sure [facility] Start: 07-20-2016 End: 10-19-2022 Alcohol intake No [employer], [place] Start: 10-26-2019 End: 10-19-2022 Alcohol intake Current non-drinker of alcohol (finding) [facility], [place] Start: 07-07-2021 End: 08-15-2022 Tobacco smoking status NHIS Unknown if ever smoked [facility] Start: 1975 Sex Assigned At Female [facility] Start: 10-19-[address] [facility] Clinical Notes 10-19-2022 to 05-31-2024 Jeane You RN - 05/31/2024 10:00 AM Alec Hair RN - 10/19/2022 8:02 PM Rudi Hair RN - 10/19/2022 8:02 PM Irwin Ziegler DO - 10/19/2022 6:55 PM EST Note Date & Type Note Facility 05-31-2024 History of Present illness Narrative 1005 Arrival Note Infusion Patient is here for lab draw Labs were drawn via venipuncture: site lac Pt has Itp with increased recent bleeding. 1029 Ordered treatment completed. Patient discharged without any issues. Patient has a copy of next infusion appointment and verbalizes understanding. All questions answered. documented in this encounter [facility] 01-10-2024 Procedure note [facility] 10-19-2022 Emergency department Note Portable chest xray complete, patient to CT via stretcher eKlly Hair RN 10/19/222001 [facility] 10-19-2022 Emergency department Note Portable chest xray complete, patient to CT via stretcher Kelly Hair RN 10/19/222001 EMERGENCY DEPARTMENT ENCOUNTER Pt Name: Jovita Caban Birthdate 1975 Date of evaluation: 10/19/2022 ED Provider: Darien Ziegler DO CHIEF COMPLAINT Chief Complaint Patient presents with Headache Nausea Vomiting left frontal headache with N/V that started yesterday, +photosensitivity +sore throat and chest achy radiating into shoulders HISTORY OF PRESENT ILLNESS (Location/Symptom, Timing/Onset, Context/Setting, Quality, Duration, Modifying Factors, Severity) Note limiting factors. I wore appropriate PPE for the entirety of this encounter. HPI Jovita Caban is a 47 y.o. female who presents to the emergency department with headache, nausea, vomiting, chest pain. Symptoms started on Monday and have gradually progressed. States she has been dealing with headaches during her menstrual cycle for the past year however this headache seems more intense and are typically monthly headache that she gets. States the headache is bitemporal as well as frontal in nature. Denies any URI symptoms cough congestion or shortness of breath. Denies any other fevers, chills. Has had some periumbilical abdominal pain as well. Nursing Notes were reviewed. REVIEW OF SYSTEMS 14 systems reviewed and otherwise acutely negative except as in the [place]. PAST MEDICAL HISTORY Past Medical History: Diagnosis Date Anemia Anxiety Depression Hypothyroidism OCD (obsessive compulsive disorder) PCOS (polycystic ovarian syndrome) Platelets decreased (HCC) SURGICAL HISTORY Past Surgical History: Procedure Laterality Date WISDOM TOOTH EXTRACTION CURRENT MEDICATIONS Discharge Medication List as of 10/19/2022 8:57 PM CONTINUE these medications which have NOT CHANGED Details buPROPion (Wellbutrin) 100 MG tablet Take 200 mg by mouth 2 times daily., Historical Med busPIRone (Buspar) 10 MG tablet Starting Mon10/18/2022, Historical Med clonazePAM (KlonoPIN) 0.5 MG tablet Take 0.5 mg by mouth Daily as needed., Historical Med escitalopram (Lexapro) 20 MG tablet Take 10 mg/day by mouth., Historical Med levothyroxine (Synthroid, Levoxyl) 150 MCG tablet Take 150 mcg by mouth daily., Starting Mon07/19/2022, Historical Med metFORMIN (Glucophage) 500 MG tablet Take 500 mg by mouth., Historical Med ALLERGIES Nsaids FAMILY HISTORY Family History Problem Relation Name Age of Onset Cancer Maternal Grandfather Heart disease Father High Blood Pressure Father Other ([id number]) Paternal Grandmother Hyperlipidemia Father Heart disease Maternal Grandfather High Blood Pressure Paternal Grandmother Hyperlipidemia Maternal Grandfather Hyperlipidemia Maternal Grandmother Diabetes Paternal Grandfather Heart disease Paternal Grandfather High Blood Pressure Maternal Grandmother Other ([id number]) Paternal Grandfather SOCIAL HISTORY Social History Socioeconomic History Marital status: Single Tobacco Use Smoking status: Never Smokeless tobacco: Never Vaping Use Vaping Use: Never used Substance and Sexual Activity Alcohol use: No Alcohol/week: 0.0 standard drinks Drug use: No SCREENINGS PHYSICAL EXAM ED Triage Vitals [10/19/22 1934] Temp Heart Rate Resp BP 36.3 C (97.3 F) 72 18 (!) 136/100 SpO2 Temp Source Heart Rate Source Patient Position 99 % Oral -- Sitting BP Location FiO2 (%) Left arm -- CONSTITUTIONAL: AOx4, no apparent distress, appears stated age HEAD: normocephalic, atraumatic EYES: PERRL, EOMI ENT: moist mucous membranes, uvula midline NECK: supple, symmetric BACK: symmetric LUNGS: clear to auscultation bilaterally CARDIOVASCULAR: regular rate and rhythm, no murmurs, rubs or gallops ABDOMEN: soft, non-tender, non-distended with normal active bowel sounds : deferred NEUROLOGIC: MAEx4, no focal sensory or motor deficits MUSCULOSKELETAL: no clubbing, cyanosis or edema SKIN: no exposed rash DIAGNOSTIC RESULTS Procedures/EKG: EKG was reviewed by myself. Physician EKG interpretation can be found in [facility] RADIOLOGY (Per Emergency Physician): Interpretation per the Radiologist below, if available at the time of this note: CT head wo IV contrast Final Result 1. No acute intracranial findings. Report Dictated on Electronically Signed By: Ravindra Mae Electronically Signed Date/Time: 10/19/2022 8:21 PM EST XR chest 1 view Final Result 1. No acute findings. Report Dictated on Electronically Signed By: Ravindra Mae Electronically Signed Date/Time: 10/19/2022 8:18 PM EST ED BEDSIDE ULTRASOUND: Performed by ED Physician - none LABS: Labs Reviewed CBC WITH AUTO DIFFERENTIAL - Abnormal Result Value Auto WBC 8.3 RBC 4.56 Hemoglobin 14.2 Hematocrit 41.1 MCV 90.1 MCH 31.1 MCHC 34.5 RDW 12.2 Platelets 310 MPV 10.4 Neutrophils Relative 77.5 Lymphocytes Relative 18.5 (*) Monocytes Relative 3.5 Eosinophils Relative 0.2 (*) Basophils Relative 0.1 Immature Grans % 0.2 (*) Neutrophils Absolute 6.4 Lymphocytes Absolute 1.5 Monocytes Absolute 0.3 Eosinophils Absolute 0.0 Basophils Absolute 0.0 Immature Grans Absolute 0.0 COMPREHENSIVE METABOLIC PANEL - Abnormal SODIUM 138 POTASSIUM 3.8 CHLORIDE 106 CARBON DIOXIDE 28 ANION GAP 5 UREA NITROGEN 13 CREATININE 0.61 GLUCOSE 102 (*) CALCIUM 9.3 AST (SGOT) 24 ALT 11 ALKALINE PHOSPHATASE 82 ALBUMIN 4.3 BILIRUBIN, TOTAL 0.5 TOTAL PROTEIN 7.9 eGFR >90.0 SARS-COV-2, FLU A/B, AND RSV COMBO - Normal SARS-CoV-2 Not Detected Respiratory Syncytial Virus Not Detected Influenza A Not Detected Influenza B Not Detected Narrative: Methodology: real-time, RT-PCR The SARS-CoV-2, Flu A/B, and RSV Combo assay is intended for in vitro diagnostic use under the FDA Emergency Use Authorization (EUA). This test has not been FDA cleared or approved. In compliance with this authorization, please visit www.fda.gov/media/542739/[email or web address] ad or www.fda.gov/media/032589/[email or web address] ad to access the applicable information sheets. TROPONIN I - Normal TROPONIN I <0.012 Narrative: Patients with high levels of Biotin oral intake (ie >5 mg/day) may have falsely decreased Troponin levels. LIPASE - Normal LIPASE 50 All other labs were within normal range or not returned as of this dictation. EMERGENCY DEPARTMENT COURSE and DIFFERENTIAL DIAGNOSIS/MDM: Vitals: Vitals: 10/19/22 1934 10/19/222055 BP: (!) 136/100 119/74 BP Location: Left arm Left arm Patient Position: Sitting Sitting Pulse: 72 74 Resp: 18 14 Temp: 36.3 C (97.3 F) TempSrc: Oral SpO2: 99% 100% Weight: 83.9 kg (185 lb) Height: 1.651 m (5' 5) EMERGENCY DEPARTMENT COURSE and DIFFERENTIAL DIAGNOSIS/MDM: Vitals: Vitals: 10/19/22 1934 10/19/222055 BP: (!) 136/100 119/74 BP Location: Left arm Left arm Patient Position: Sitting Sitting Pulse: 72 74 Resp: 18 14 Temp: 36.3 C (97.3 F) TempSrc: Oral SpO2: 99% 100% Weight: 83.9 kg (185 lb) Height: 1.651 m (5' 5) The patient presented with a chief complaint of headache. States she gets headache with menstrual cycle however this is more intense than normal. Also with intermittent chest pains, nausea, vomiting,. The differential diagnosis associated with this patient's presentation includes ACS, gallbladder pathology, brain mass, tension headache, viral illness. Our workup consisted of ordering/reviewing CT scan of the head which was negative. CBC, CMP, lipase, troponin normal. Patient given Compazine 10 mg, Benadryl 25 mg, Decadron 10 mg and liter of fluid. On reevaluation patient is pain-free we will start the patient Fioricet as well as Zofran. Low suspicion for meningitis with normal vital signs, normal range of motion of the back and neck, low suspicion for ACS with normal troponin and EKG with a heart score of 1.. Diagnoses as of 10/20/22 0201 Nonintractable episodic headache, unspecified headache type Nausea and vomiting, unspecified vomiting type Chest pain, unspecified type Diagnostic tests considered but not performed: External records reviewed: none Diagnostics interpreted by me: none Discussions with other clinicians: none Chronic conditions impacting care: none Social determinants of health affecting care: none ED Medications managed: Medications sodium chloride 0.9 % bolus 1,000 mL (0 mL IntraVENous Stopped 10/19/222049) prochlorperazine (Compazine) injection 10 mg (10 mg IntraVENous Given 10/19/221952) diphenhydrAMINE (BENADryl) injection 25 mg (25 mg IntraVENous Given 10/19/221952) dexAMETHasone (PF) (Decadron) injection 10 mg (10 mg IntraVENous Given 10/19/221953) CONSULTS: None PROCEDURES: Unless otherwise noted below, none Procedures Patients symptoms are consistent with sepsis, severe sepsis, or septic shock (If yes use .sepsiscoremeasure): 0 FINAL IMPRESSION 1. Nonintractable episodic headache, unspecified headache type 2. Nausea and vomiting, unspecified vomiting type 3. Chest pain, unspecified type DISPOSITION/PLAN dc PATIENT REFERRED TO: No follow-up provider specified. DISCHARGE MEDICATIONS: Discharge Medication List as of 10/19/2022 8:57 PM START taking these medications Details aeusqxfzhu-azsvpelzdcjkt-xpvgjx ne 50-325-40 MG tablet Take 1-2 tablets by mouth every 6 hours as needed for headaches for up to 5 days., Starting Mon10/19/2022, Until 10/24/2022 at 2359, Print ondansetron ODT (Zofran-ODT) 4 MG disintegrating tablet Take 1 tablet (4 mg) by mouth every 8 hours as needed for nausea or vomiting for up to 7 days., Starting Mon10/19/2022, Until Mon10/26/2022 at 2359, Print (Comment: Please note this report has been produced using speech recognition software and may contain errors related to that system including errors in grammar, punctuation, and spelling, as well as words and phrases that may be inappropriate. If there are any questions or concerns please feel free to contact the dictating provider for clarification.) Darien Ziegler DO (electronically signed) Emergency Medicine Provider Darien Ziegler DO 10/20/22 0204 Patient arrives with c/o left sided frontal headache with N/V/ST/CP that started yesterday. Patient reports headache radiates into left side of neck. Patient also c/o chest pain that radiates into bilateral shoulders. Patient reports photosensitivity. Patient denies fever, cough, SOB. Family and call puente bedside. documented in this encounter [facility] 10-19-2022 Emergency department Triage note Patient arrives with c/o left sided frontal headache with N/V/ST/CP that started yesterday. Patient reports headache radiates into left side of neck. Patient also c/o chest pain that radiates into bilateral shoulders. Patient reports photosensitivity. Patient denies fever, cough, SOB. Family and call puente bedside. [facility] 10-19-2022 Physician Emergency department Note EMERGENCY DEPARTMENT ENCOUNTER Pt Name: Jovita Caban Birthdate 1975 Date of evaluation: 10/19/2022 ED Provider: Darien Ziegler DO CHIEF COMPLAINT Chief Complaint Patient presents with Headache Nausea Vomiting left frontal headache with N/V that started yesterday, +photosensitivity +sore throat and chest achy radiating into shoulders HISTORY OF PRESENT ILLNESS (Location/Symptom, Timing/Onset, Context/Setting, Quality, Duration, Modifying Factors, Severity) Note limiting factors. I wore appropriate PPE for the entirety of this encounter. HPI Jovita Caban is a 47 y.o. female who presents to the emergency department with headache, nausea, vomiting, chest pain. Symptoms started on Monday and have gradually progressed. States she has been dealing with headaches during her menstrual cycle for the past year however this headache seems more intense and are typically monthly headache that she gets. States the headache is bitemporal as well as frontal in nature. Denies any URI symptoms cough congestion or shortness of breath. Denies any other fevers, chills. Has had some periumbilical abdominal pain as well. Nursing Notes were reviewed. REVIEW OF SYSTEMS 14 systems reviewed and otherwise acutely negative except as in the [place]. PAST MEDICAL HISTORY Past Medical History: Diagnosis Date Anemia Anxiety Depression Hypothyroidism OCD (obsessive compulsive disorder) PCOS (polycystic ovarian syndrome) Platelets decreased (HCC) SURGICAL HISTORY Past Surgical History: Procedure Laterality Date WISDOM TOOTH EXTRACTION CURRENT MEDICATIONS Discharge Medication List as of 10/19/2022 8:57 PM CONTINUE these medications which have NOT CHANGED Details buPROPion (Wellbutrin) 100 MG tablet Take 200 mg by mouth 2 times daily., Historical Med busPIRone (Buspar) 10 MG tablet Starting Mon10/18/2022, Historical Med clonazePAM (KlonoPIN) 0.5 MG tablet Take 0.5 mg by mouth Daily as needed., Historical Med escitalopram (Lexapro) 20 MG tablet Take 10 mg/day by mouth., Historical Med levothyroxine (Synthroid, Levoxyl) 150 MCG tablet Take 150 mcg by mouth daily., Starting Mon07/19/2022, Historical Med metFORMIN (Glucophage) 500 MG tablet Take 500 mg by mouth., Historical Med ALLERGIES Nsaids FAMILY HISTORY Family History Problem Relation Name Age of Onset Cancer Maternal Grandfather Heart disease Father High Blood Pressure Father Other ([id number]) Paternal Grandmother Hyperlipidemia Father Heart disease Maternal Grandfather High Blood Pressure Paternal Grandmother Hyperlipidemia Maternal Grandfather Hyperlipidemia Maternal Grandmother Diabetes Paternal Grandfather Heart disease Paternal Grandfather High Blood Pressure Maternal Grandmother Other ([id number]) Paternal Grandfather SOCIAL HISTORY Social History Socioeconomic History Marital status: Single Tobacco Use Smoking status: Never Smokeless tobacco: Never Vaping Use Vaping Use: Never used Substance and Sexual Activity Alcohol use: No Alcohol/week: 0.0 standard drinks Drug use: No SCREENINGS PHYSICAL EXAM ED Triage Vitals [10/19/22 193] Temp Heart Rate Resp BP 36.3 C (97.3 F) 72 18 (!) 136/100 SpO2 Temp Source Heart Rate Source Patient Position 99 % Oral -- Sitting BP Location FiO2 (%) Left arm -- CONSTITUTIONAL: AOx4, no apparent distress, appears stated age HEAD: normocephalic, atraumatic EYES: PERRL, EOMI ENT: moist mucous membranes, uvula midline NECK: supple, symmetric BACK: symmetric LUNGS: clear to auscultation bilaterally CARDIOVASCULAR: regular rate and rhythm, no murmurs, rubs or gallops ABDOMEN: soft, non-tender, non-distended with normal active bowel sounds : deferred NEUROLOGIC: MAEx4, no focal sensory or motor deficits MUSCULOSKELETAL: no clubbing, cyanosis or edema SKIN: no exposed rash DIAGNOSTIC RESULTS Procedures/EKG: EKG was reviewed by myself. Physician EKG interpretation can be found in [facility] RADIOLOGY (Per Emergency Physician): Interpretation per the Radiologist below, if available at the time of this note: CT head wo IV contrast Final Result 1. No acute intracranial findings. Report Dictated on Electronically Signed By: Ravindra Mae Electronically Signed Date/Time: 10/19/2022 8:21 PM EST XR chest 1 view Final Result 1. No acute findings. Report Dictated on Electronically Signed By: Ravindra Mae Electronically Signed Date/Time: 10/19/2022 8:18 PM EST ED BEDSIDE ULTRASOUND: Performed by ED Physician - none LABS: Labs Reviewed CBC WITH AUTO DIFFERENTIAL - Abnormal Result Value Auto WBC 8.3 RBC 4.56 Hemoglobin 14.2 Hematocrit 41.1 MCV 90.1 MCH 31.1 MCHC 34.5 RDW 12.2 Platelets 310 MPV 10.4 Neutrophils Relative 77.5 Lymphocytes Relative 18.5 (*) Monocytes Relative 3.5 Eosinophils Relative 0.2 (*) Basophils Relative 0.1 Immature Grans % 0.2 (*) Neutrophils Absolute 6.4 Lymphocytes Absolute 1.5 Monocytes Absolute 0.3 Eosinophils Absolute 0.0 Basophils Absolute 0.0 Immature Grans Absolute 0.0 COMPREHENSIVE METABOLIC PANEL - Abnormal SODIUM 138 POTASSIUM 3.8 CHLORIDE 106 CARBON DIOXIDE 28 ANION GAP 5 UREA NITROGEN 13 CREATININE 0.61 GLUCOSE 102 (*) CALCIUM 9.3 AST (SGOT) 24 ALT 11 ALKALINE PHOSPHATASE 82 ALBUMIN 4.3 BILIRUBIN, TOTAL 0.5 TOTAL PROTEIN 7.9 eGFR >90.0 SARS-COV-2, FLU A/B, AND RSV COMBO - Normal SARS-CoV-2 Not Detected Respiratory Syncytial Virus Not Detected Influenza A Not Detected Influenza B Not Detected Narrative: Methodology: real-time, RT-PCR The SARS-CoV-2, Flu A/B, and RSV Combo assay is intended for in vitro diagnostic use under the FDA Emergency Use Authorization (EUA). This test has not been FDA cleared or approved. In compliance with this authorization, please visit www.fda.gov/media/588551/downlo ad or www.fda.gov/media/942408/downlo ad to access the applicable information sheets. TROPONIN I - Normal TROPONIN I <0.012 Narrative: Patients with high levels of Biotin oral intake (ie >5 mg/day) may have falsely decreased Troponin levels. LIPASE - Normal LIPASE 50 All other labs were within normal range or not returned as of this dictation. EMERGENCY DEPARTMENT COURSE and DIFFERENTIAL DIAGNOSIS/MDM: Vitals: Vitals: 10/19/22193310/19/222055 BP: (!) 136/100 119/74 BP Location: Left arm Left arm Patient Position: Sitting Sitting Pulse: 72 74 Resp: 18 14 Temp: 36.3 C (97.3 F) TempSrc: Oral SpO2: 99% 100% Weight: 83.9 kg (185 lb) Height: 1.651 m (5' 5) EMERGENCY DEPARTMENT COURSE and DIFFERENTIAL DIAGNOSIS/MDM: Vitals: Vitals: 10/19/22193310/19/222055 BP: (!) 136/100 119/74 BP Location: Left arm Left arm Patient Position: Sitting Sitting Pulse: 72 74 Resp: 18 14 Temp: 36.3 C (97.3 F) TempSrc: Oral SpO2: 99% 100% Weight: 83.9 kg (185 lb) Height: 1.651 m (5' 5) The patient presented with a chief complaint of headache. States she gets headache with menstrual cycle however this is more intense than normal. Also with intermittent chest pains, nausea, vomiting,. The differential diagnosis associated with this patient's presentation includes ACS, gallbladder pathology, brain mass, tension headache, viral illness. Our workup consisted of ordering/reviewing CT scan of the head which was negative. CBC, CMP, lipase, troponin normal. Patient given Compazine 10 mg, Benadryl 25 mg, Decadron 10 mg and liter of fluid. On reevaluation patient is pain-free we will start the patient Fioricet as well as Zofran. Low suspicion for meningitis with normal vital signs, normal range of motion of the back and neck, low suspicion for ACS with normal troponin and EKG with a heart score of 1.. Diagnoses as of 10/20/22 0201 Nonintractable episodic headache, unspecified headache type Nausea and vomiting, unspecified vomiting type Chest pain, unspecified type Diagnostic tests considered but not performed: External records reviewed: none Diagnostics interpreted by me: none Discussions with other clinicians: none Chronic conditions impacting care: none Social determinants of health affecting care: none ED Medications managed: Medications sodium chloride 0.9 % bolus 1,000 mL (0 mL IntraVENous Stopped 10/19/222049) prochlorperazine (Compazine) injection 10 mg (10 mg IntraVENous Given 10/19/221952) diphenhydrAMINE (BENADryl) injection 25 mg (25 mg IntraVENous Given 10/19/221952) dexAMETHasone (PF) (Decadron) injection 10 mg (10 mg IntraVENous Given 10/19/221953) CONSULTS: None PROCEDURES: Unless otherwise noted below, none Procedures Patients symptoms are consistent with sepsis, severe sepsis, or septic shock (If yes use .sepsiscoremeasure): 0 FINAL IMPRESSION 1. Nonintractable episodic headache, unspecified headache type 2. Nausea and vomiting, unspecified vomiting type 3. Chest pain, unspecified type DISPOSITION/PLAN dc PATIENT REFERRED TO: No follow-up provider specified. DISCHARGE MEDICATIONS: Discharge Medication List as of 10/19/2022 8:57 PM START taking these medications Details ahxhnnbmut-tiwwkhissrfzw-tyimmz ne 50-325-40 MG tablet Take 1-2 tablets by mouth every 6 hours as needed for headaches for up to 5 days., Starting Mon10/19/2022, Until Mon10/24/2022 at 2359, Print ondansetron ODT (Zofran-ODT) 4 MG disintegrating tablet Take 1 tablet (4 mg) by mouth every 8 hours as needed for nausea or vomiting for up to 7 days., Starting Mon10/19/2022, Until Mon10/26/2022 at 2359, Print (Comment: Please note this report has been produced using speech recognition software and may contain errors related to that system including errors in grammar, punctuation, and spelling, as well as words and phrases that may be inappropriate. If there are any questions or concerns please feel free to contact the dictating provider for clarification.) Darien Ziegler DO (electronically signed) Emergency Medicine Provider Darien Ziegler DO 10/20/[address] [facility] Evaluation note No assessment inform ation available [facility] Work Phone: Evaluation note Diagnosis Onset Date [id number] acute [facility] Work Phone: Evaluation note* Diagnosis Thrombocytopenia (HCC) Unspecified thrombocytopenia [facility] Diagnosis Nonintractable episodic headache, unspecified headache type- Primary Nausea and vomiting, unspecified vomiting type Chest pain, unspecified type [facility]* Attachments The following attachments cannot be sent through Care Everywhere. * Headache Discharge Instructions, Adult (Turkish) * Nausea and Vomiting, Adult ED (Turkish) [facility] Purpose Family History No Family History Records Found Relationship Condition Age at Onset Recorded Date/T jameson grandmother Cardiac disease Unknown Hypertension Unknown grandfather Cardiac disease Unknown Diabetes mellitus Unknown Malignant neoplasm Unknown father Cardiac disease Unknown aunt Diabetes mellitus Unknown Advance Directives No Advanced Directives Records FoundDocuments on File Type Date Recorded Patient Windmill Technician Expl anation Advance Directives and Living Will Power of Underwriting Service Representative Instructions * Patient Instructions* Sveta, Marialuisa - 08/11/2020 8:51 AM EST Hypothyroidism What is the thyroid gland? The thyroid is a small butterfly-shaped gland located just below the Dann s apple. The primary function of the thyroid is to control the body s metabolism (the rate at which the cells perform duties essential to living). To control the metabolism, the thyroid produces the hormones T4 and T3, which tell the body s cellshow much energy to use. These hormones act on almost all the tissues and organs of the body. They help control your body temperature, influence your heart rate, and regulate the production of protein. A properly functioning thyroid will maintain the right amount of hormones needed to keep your body s metabolism functioning at a satisfactory rate. As the hormones are used, the thyroid creates replacements. The quantity of the thyroid hormones in the bloodstream is monitored and controlled by the pituitary gland, which is located in the center of the skull below the brain. When the pituitary gland senses either a lack of thyroid hormone or too much, it will adjust its own hormone (thyroid stimulating hormone, or TSH) and send it to the thyroid to tell it what to do. What is hypothyroidism? If there is not enough thyroid hormone in the bloodstream, your body s metabolism slows down. This condition is called hypothyroidism (also known as underactive thyroid disease). It is a relatively common disease that affects people of all ages and races. However, women, especially older women, aremore likely to develop hypothyroidism than men are. Hypothyroidism can affect up to 20% of women over the age of 50. What causes hypothyroidism? The most common cause of hypothyroidism is a disorder known as autoimmune thyroiditis (Kris s disease). The body s immune system causes the thyroid gland to lower the amount of hormones produced. Kris s disease can be hereditary, meaning it runs in families. Thyroiditis (inflammation of the thyroid) can also occur after or a viral illness. Treatment with radioactive iodine for hyperthyroidism (overactive thyroid) can result in hypothyroidism. Additionally, several medicines (lithium and amiodarone) can affect thyroid function. Another potential cause of hypothyroidism is a problem with the pituitary gland. The pituitary might fail to stimulate the thyroid to make enough hormones to meet the body s needs. What are the symptoms of hypothyroidism? The symptoms of hypothyroidism usually develop slowly over a number of years and include: Fatigue Numbness and tingling in hands Constipation Weight gain Intolerance to cold Dry, coarse skin and hair Decreased sexual interest Frequent, heavy menstrual periods Forgetfulness How is hypothyroidism diagnosed? Hypothyroidism can be difficult to diagnose because the symptoms are easily confused with other conditions. A blood test called the TSH test can identify thyroid disorders even before the onset of symptoms. How is hypothyroidism treated? Hypothyroidism is treated by replacing the amount of hormone that your thyroid can no longer make. Various forms of thyroid hormone are available. Thyroid medicines are best if taken on an empty stomach. Your doctor will monitor your illness and adjust your dosage as needed. Thyroid disease is a lifelong condition. However, with careful management, you can lead a normal and healthy life. What happens if hypothyroidism is not treated? If hypothyroidism is not treated, symptoms might become more severe, and can include: Mental health problems Trouble breathing Inability to maintain normal body temperatures Heart problems Goiter (enlargement of the thyroid gland) Coma (occurs very rarely if the condition is not treated for a long time) Can hypothyroidism be prevented? Hypothyroidism cannot be prevented. However, you can watch for symptoms so that the condition can be treated in a timely manner. References [employer]. Hypothyroidism Accessed 10/31/2016. U.S. Department of Health and Human Services. Thyroid Disease Accessed 10/31/2016. [facility]. Congenital Hypothyroidism Accessed 10/31/2016. Copyright 7770-[address] [facility]. All rights reserved This information is provided by the [facility] and is not intended to replace the medical advice of your doctor or health care provider. Please consult your health care provider for advice about a specific medical condition. For additional health information, please contact the Center for Consumer Health Information at the [facility] or toll-free extension [phone]. If you prefer, you may visit [email or web address] or [email or web address]. This document was last reviewed on: 2016 index#[id number] documented in this encounter History of Present Illness * Santo Keith - 08/11/2020 8:44 AM EST [facility] Medicine Aristeo Keith DO [address] [place] [address] Date of Evaluation: 08/11/2020 Patient Name: Jovita Caban : 1975 Subjective Ms. Caban is a 45 year old female who presents to follow up for Hypothyroidism. The history is provided by the patient. Thyroid Problem Presents for follow-up visit. Symptoms include anxiety. Patient reports no constipation, diarrhea, palpitations or weight loss. Review of Systems Constitutional: Negative for chills, malaise/fatigue and weight loss. HENT: Negative for hearing loss, nosebleeds and tinnitus. Eyes: Negative for blurred vision and double vision. Respiratory: Negative for cough and shortness of breath. Cardiovascular: Negative for chest pain, palpitations, orthopnea, claudication, leg swelling and PND. Gastrointestinal: Negative for abdominal pain, constipation, diarrhea and heartburn. Genitourinary: Negative for frequency and hematuria. Musculoskeletal: Positive for back pain. Negative for joint pain, myalgias and neck pain. Skin: Negative. Neurological: Negative for dizziness, tingling, sensory change, focal weakness and headaches. Endo/Heme/Allergies: Negative for environmental allergies. Does not bruise/bleed easily. Psychiatric/Behavioral: Positive for depression. The patient is nervous/anxious. The patient does not have insomnia. PAST MEDICAL HISTORY Diagnosis Date Hypothyroidism, unspecified Idiopathic thrombocytopenic purpura (ITP) (HCC) OCD (obsessive compulsive disorder) PCOS (polycystic ovarian syndrome) Sciatica PAST SURGICAL HISTORY Procedure Laterality Date ORAL SURGERY PROCEDURE wisdom teeth FAMILY HISTORY Problem Relation Age of Onset Diabetes Paternal Grandmother Heart disease Other Thyroid Other Social History Tobacco Use Smoking status: Never Smoker Smokeless tobacco: Never Used Substance Use Topics Alcohol use: Never Frequency: Never Drug use: Never Current Meds buPROPion HCL 200 mg 12 hr tablet clonazePAM (KLONOPIN) 0.5 mg tablet Take 1 tablet by mouth once daily. escitalopram oxalate (LEXAPRO) 20 mg tablet SYNTHROID 100 mcg tablet Take 1 tablet by mouth once daily. SYNTHROID 50 mcg tablet Take 1 tablet by mouth once daily. metFORMIN (GLUCOPHAGE) 500 mg tablet Take 1 tablet by mouth once daily. escitalopram oxalate (LEXAPRO) 10 mg tablet Objective BP 108/70 (BP Site: Right Arm, BP Position: Sitting) Pulse 70 Temp 36.1 C (96.9 F) Ht 5' 6 (1.676 m) Wt 182 lb 9.6 oz (82.8 kg) SpO2 99% BMI 29.47 kg/m Physical Exam Constitutional: She is oriented to person, place, and time and well-developed, well-nourished, and in no distress. Vital signs are normal. HENT: Head: Normocephalic and atraumatic. Right Ear: Tympanic membrane, external ear and ear canal normal. Left Ear: Tympanic membrane, external ear and ear canal normal. Nose: Nose normal. Mouth/Throat: Oropharynx is clear and moist. Eyes: Pupils are equal, round, and reactive to light. Conjunctivae, EOM and lids are normal. Neck: Normal range of motion. Neck supple. Cardiovascular: Normal rate, regular rhythm, normal heart sounds and intact distal pulses. Pulmonary/Chest: Effort normal and breath sounds normal. Abdominal: Soft. Bowel sounds are normal. There is no abdominal tenderness. Musculoskeletal: Normal range of motion. Neurological: She is alert and oriented to person, place, and time. She has normal reflexes. Gait normal. GCS score is 15. Skin: Skin is warm, dry and intact. Psychiatric: Mood, memory, affect and judgment normal. Nursing note and vitals reviewed. Data Reviewed: No new labs ASSESSMENT/PLAN: 1. Hypothyroidism due to acquired atrophy of thyroid - ICD9: 244.8, 246.8, ICD10: E03.4 (primary diagnosis) - Instructed patient on importance of taking on an empty stomach either first thing in the morning or at bedtime. - check TSH today - TSH BLD 2. Anxiety with depression - ICD9: 300.4, ICD10: F41.8 - Controlled with current medication regimen. - Psychiatry is managing. 3. Other obsessive-compulsive disorders - ICD9: 300.3, ICD10: F42.8 - Psychiatry is managing. 4. Screening for cholesterol level - ICD9: V77.91, ICD10: Z13.220 - COMP METABOLIC PANEL - LIPID PANEL BASIC 5. Special screening examination for viral disease - ICD9: V73.99, ICD10: Z11.59 - HEP C AB IA W/CONF SCRN Return in about 6 months (around 02/09/2021). Santo Keith DO Attestation: Scribe Statement: I Marialuisa Sveta am scribing for, and in the presence of, Santo Keith DO August 11, 2020 8:45 AM. Physician Statement: I, Santo Keith DO, personally performed the services described in the documentation, as scribed by Marialuisa Miguel in my presence, and it is both accurate and complete August 11, 2020 9:12AM. I have confirmed and edited as necessary the past medical, family and social histories, HPI, and ROS obtained by others. documented in this encounter Assessments Diagnosis Hypothyroidism due to acquired atrophy of thyroid- Primary Anxiety with depression Other obsessive-compulsive disorders Screening for cholesterol level Screening for lipoid disorders Special screening examination for viral disease Special screening examination for unspecified viral disease Chief Complaint and Reason for Visit Chief Complaint EORDER Chief Complaint EORDER EORDER Chief Complaint EORDER THYROID NODULE Chief Complaint THYROID NODULE BILATERAL THYROID NODULES DYSDIADOCHOKINESIA Reason for Visit [id number] Chief Complaint BILATERAL THYROID NO DULES DYSDIADOCHOKINESIA Reason for Visit [id number] Chief Complaint DYSDIADOCHOKINESIA NODULES Chief Complaint NODULES SCREENING Chief Complaint SCREENING Chief Complaint SCREENING EORDER THYROID NODULE Chief Complaint THYROID NODULE EORDER Chief Complaint EORDER BILAT UPPER EXT CTS BILAT UPPER EXT CTS Additional Source Comments INFORMATION SOURCE (unrecogn ized section and content) DATE CREATED AUTHOR 02/12/2020 [facility] [employer] DATE CREATED AUTHOR AUTHOR'S ORGANIZ ATION 10/24/2020 [facility] DATE CREATED AUTHOR AUTHOR'S ORGANIZ ATION 06/06/2024 [facility] [employer] [facility] DATE CREATED AUTHOR AUTHOR'S ORGANIZ ATION 03/05/2025 [facility] Source Comments (unrecognize d section and content) In the event this informatio n is protected by the Federal Confidentiality of Alcohol and Drug Abuse Patient Records regulations: The Federal rules restrict any use of the information to criminally investigate or prosecute any alcohol or drug abuse patient.[facility] the event this information is protected by the Federal Confidentiality of Alcohol and Drug Abuse Patient Records regulations: The Federal rules restrict any use of the information to criminally investigate or prosecute any alcohol or drug abuse patient.[facility] the event this information is protected by the Federal Confidentiality of Alcohol and Drug Abuse Patient Records regulations: The Federal rules restrict any use of the information to criminally investigate or prosecute any alcohol or drug abuse patient.[facility] the event this information is protected by the Federal Confidentiality of Alcohol and Drug Abuse Patient Records regulations: The Federal rules restrict any use of the information to criminally investigate or prosecute any alcohol or drug abuse patient.[facility] Reason for Visit (unrecogniz ed section and content) Reason Comments Thyroid Problem requesting thyroid c hecked since been a year Polycystic Ovarian Syndrome requesting b lood for her glucose level and cholesterol. patient is fasting. Hypothyroidism Status Reason Specialty Diagnoses / Procedures Referred By Contact Referred To Contact Authorized OON/Self Pay Override Financial Clearance Not Required FAMILY MEDICINE Diagnoses Annual Check-Up Procedures EST PATIENT VISIT LEVEL 3 EST PATIENT VISIT LEVEL 4 B/W and Check-Up Santo Keith [address] [place] [address] Santo Keith [address] [place] [address] Reason Onset Date Comments Refill Request 09/18/2020 Reason Comments Headache Nausea Vomiting left frontal headach e with N/V that started yesterday, +photosensitivity +sore throat and chest achy radiating into shoulders Telephone Encounter - Gretchen Kwan (Lidya), LIDYA - 09/18/2020 2:07 PM ESTTelephone Encounter - Gretchen Kwan (Lidya), LIDYA - 09/18/2020 1:45 PM EST Miscellaneous Notes (unrecog nized section and content) Patient called requesting the following refill Refill(s) Requested: Pending Prescriptions Disp Refills SYNTHROID 100 MCG TABLET 90 tablet 3 Sig: Take 1 tablet by mouth once daily. LEATHA: Yes SYNTHROID 50 MCG TABLET 90 tablet 3 Sig: Take 1 tablet by mouth once daily. LEATHA: Yes METFORMIN 500 MG TABLET 90 tablet 3 Sig: Take 1 tablet by mouth once daily. LEATHA: No ALLERGIES No Known Allergies (home) [phone] (cell) Last Visit date: 08/11/2020 Future appointment: 02/09/2021 The patients preferred pharmacy has been captured for this encounter? yes Request is for script(s) to be escript to pharmacy. Gretchen Kwan LPN documented in this encounter Left message to call us back. documented in this encounter Goals (unrecognized section and content) Goals may be documented in a n alternate sectionGoals may be documented in an alternate sectionGoals may be documented in an alternate sectionGoals may be documented in an alternate sectionGoals may be documented in an alternate sectionGoals may be documented in an alternate sectionGoals may be documented in an alternate sectionGoals may be documented in an alternate sectionGoals may be documented in an alternate sectionGoals may be documented in an alternate sectionGoals may be documented in an alternate sectionGoals may be documented in an alternate section Care Teams (unrecognized sec tion and content) Team Status: Active Member Role Status Dates Dr. Rita Maher MD Primary Care Provider Active Team Status: Active Member Role Status Dates Dr. Rita Maher MD Primary Care Pr ovider, Referring Provider, Other Provider Active Dr. Yaa Moreno MD Attending Provider Active Team Status: Inactive Member Role Status Dates Dr. Rita Maher MD Primary Care Provider, Attend ing Provider Active Team Status: Inactive Member Role Status Dates Dr. Rita Maher MD Primary Care Pr ovider, Attending Provider, Referring Provider Active Team Status: Inactive Member Role Status Dates Dr. Rita Maher MD Primary Care Provider, Referr ing Provider Active Dr. Jason Davidson MD Attending Provider Active Team Status: Inactive Member Role Status Dates Dr. Rita Maher MD Primary Care Provider Active Dr. Jason Davidson MD Attending Provider, Referring P rovider Active Team Status: Inactive Member Role Status Dates Dr. Rita Maher MD Primary Care Provider Active Dr. Dario Lobato MD Attending Provider, Referring P rovider Active Scheduled Active and Recently Administ ered Medications (unrecognized section and content) Medication Order 10/17/2022 10/18/2022 10/19/2022 dexAMETHasone (PF) (Decadron) injection 10 mg (COMPLETED) 10 mg, IntraVENous, Once, On Mon10/19/22 at 1944, For 1 dose 1953 (Given - Provid er: Kelly Hair RN) diphenhydrAMINE (BENADryl) injection 25 mg (COMPLETED) 25 mg, IntraVENous, Once, On Mon10/19/22 at 1944, For 1 dose 1952 (Given - Provid er: Kelly Hair RN) prochlorperazine (Compazine) injection 10 mg (COMPLETED) 10 mg, IntraVENous, Once, On Mon10/19/22 at 1944, For 1 dose, Give if unable to tolerate po. 1952 (Given - Provid er: Kelly Hair RN) sodium chloride 0.9 % bolus 1,000 mL (COMPLETED) 1,000 mL, IntraVENous, at 1,000 mL/hr, Administer over 1 Hours, Once, On Mon10/19/22 at 1945, For 1 dose 1950 (New Bag - Prov ider: Radha Mcintosh)2049 (Stopped - Provider: Kelly Hair RN) FOR RECORDS PERTAINING TO PATIENTS WHO ARE OR HAVE BEEN ENROLLED IN A CHEMICAL DEPENDENCY/SUBSTANCEABUSE PROGRAM, SOME INFORMATION MAY BE OMITTED. This clinical summary was aggregated from multiple sources. Caution should be exercised in using it in the provision of clinical care. This summary normalizes information from multiple sources, and as a consequence, information in this document may materially change the coding, format and clinical context of patient data. In addition, data may be omitted in some cases. CLINICAL DECISIONS SHOULD BE BASED ON THE PRIMARY CLINICAL RECORDS. [facility] [facility]. provides no warranty or guarantee of the accuracy or completeness of information in this document.
--- NOTE | 2025-03-06 05:55 | ED.RN ---
See downtime charting.
== END 2025-03-06 01:28 | disposition home or self-care (01) ==
PROVIDERS: Emergency Provider Emergency Medicine; PCP Family Medicine; Visit Provider Emergency Medicine
DX: F41.1 Generalized anxiety disorder (principal); F32.9 Major depressive disorder, single episode, unspecified; G25.9 Extrapyramidal and movement disorder, unspecified; F42.9 Obsessive-compulsive disorder, unspecified
CPT/HCPCS: 99283

== ENCOUNTER → 2025-05-07 | Outpatient (CLI) | payer BC, SELFPAY ==
[2025-05-07 13:13] LABS: Hematocrit 41.9 % (37-47); Hemoglobin 14.0 g/dL (12.0-15.0); Immature Granulocytes Count 0.010 X10^3/uL (0.0-0.0); Mean Corp Hgb Conc 33.4 g/dL (32-36); Mean Corpuscular Volume 90.9 fL (81-99); Mean Platelet Vol. 11.3 fl (6.2-12.0); NRBC Flagged by Analyzer 0 % (0-5); Platelet Count 284 K/mm3 (150-450); RBC Distribution Width CV 12.3 % (11.6-14.6); RBC Distribution Width SD 40.9 fl (35.1-43.9); Red Blood Count 4.61 M/mm3 (4.2-5.4); White Blood Count 6.0 K/mm3 (4.4-11.0)
[2025-05-07 13:22] LABS: AST(SGOT) 35 U/L (<=31); Alanine Aminotransfer ALT/SGPT 26 U/L (<=34); Albumin, Serum 3.9 g/dL (3.5-5.0); Alkaline Phosphatase 91 U/L (35-104); Anion Gap 12 (5-15); BUN 13 mg/dL (4-19); BUN/Creat Ratio 23.0 RATIO (10-20); Calcium,Total 9.3 mg/dL (7.6-11.0); Carbon Dioxide 22.6 mmol/L (21.0-32.0); Chloride 103 mmol/L (98-108); Globulin 3.6 g/dL (2.2-4.2); Glucose 113 mg/dL (70-99); Potassium 3.9 mmol/L (3.3-5.1); Vitamin D,25 Hydroxy 17.2 ng/mL (30-100)
== END | disposition home or self-care (01) ==
LOC: MFPLAB 09:53
PROVIDERS: PCP Family Medicine; Visit Provider Family Medicine
DX: E55.9 Vitamin D deficiency, unspecified (principal); E03.9 Hypothyroidism, unspecified
CPT/HCPCS: 36415; 80053; 82306; 84439; 84443; 85025

== ENCOUNTER → 2025-05-08 | Outpatient (CLI) | payer BC, SELFPAY | END | disposition home or self-care (01) | LOC: MTLAB 13:25 | PROVIDERS: PCP Family Medicine; Referring Provider Family Medicine; Visit Provider Family Medicine | DX: R73.09 Other abnormal glucose (principal) | CPT/HCPCS: 36415; 83036 ==

== ENCOUNTER → 2025-07-30 | Outpatient (CLI) | payer BC, SELFPAY ==
--- NOTE | 2025-07-30 13:22 | US_ITS ---
PROCEDURE: THYROID 07/30/2025 REASON FOR EXAM: THYROID NODULE TECHNIQUE: Procedure Code: USTHY Modality: US Procedure: THYROID COMPARISON: Extending back to July 2022 FINDINGS: Right thyroid lobe size: 2.9 x 1.0 x 0.4 cm Left thyroid lobe size: 2.4 x 0.9 x 0.7 cm Isthmus: 0.4 cm Background parenchymal echotexture is moderately heterogeneous Nodules: 1. Lobe: Right, Location: Mid, Size: 1.0 x 0.9 x 0.7 cm, Stability: Stable Composition: Solid or almost completely solid (+2) Echogenicity: Hypoechoic (+2) Margin: Smooth (+0) Shape: Wider than tall (+0) Echogenic Foci: Macrocalcification (+1) TI-RADS: 4 2. Lobe: Left, Location: Mid, Size: 0.4 x 0.4 x 0.3 cm, Stability: Stable Composition: Solid or almost completely solid (+2) Echogenicity: Hypoechoic (+2) Margin: Smooth (+0) Shape: Wider than tall (+0) Echogenic Foci: Macrocalcification (+1) TI-RADS: 5 US/Thyroid IMPRESSION: Stable bilateral thyroid nodules now stable for 3 years. Nodule 1 TR 4 recommend final follow-up ultrasound in 2 years for [address] ability[address] RECOMMENDATION: TR 1 benign (0 points): No fine-needle aspirate or ultrasound follow-up require d. TR 2 not suspicious (1-2 points): No fine-needle aspirate or ultrasound follow up required. TR 3 mildly suspicious (3 points): 1.5 centimeter or greater requires ultrasoun d follow up at 1, 3 and 5 years. 2.5 centimeters or greater requires fine-needle aspirate. TR 4: Moderately suspicious (4-6 points): 1 centimeter greater requires ultraso und follow-up in 1, 2, 3 and 5 years. 1.5 centimeters or greater requires fine-needle aspirate. TR 5 highly suspicious (greater than or equal to 7 points,): 0.5 centimeters or greater requires annual follow up up to 5 years. 1.0 centimeters or greater requires fine-needle aspirate. Fine-needle aspirate no more than 2 nodules. Biopsy up to two highest TI-RADS s cores. Follow-up no more than 4 nodules with highest TI-RADS points score. Based on most suspicious nodule. Nodule size = largest diameter Only evaluate nodule if =>5 mm. Growth > 20% in 2 dimensions = worsening. Reading Location: [place] [id number]
== END | disposition home or self-care (01) ==
PROVIDERS: PCP Family Medicine; Referring Provider Surgery; Visit Provider Surgery
DX: E04.1 Nontoxic single thyroid nodule (principal)
CPT/HCPCS: 76536